=== PATIENT | male | born 1950 | race Caucasian/White ===

== ENCOUNTER → 2018-06-14 13:10 | Outpatient (CLI) | payer MEDICARE, SELFPAY ==
[2018-06-18 16:30] LABS: Fecal Immunochemical Test DETECTED (NOT DETECTED)
== END ==
PROVIDERS: PCP Family Medicine; Visit Provider Family Medicine
DX: Z12.11 Encounter for screening for malignant neoplasm of colon (principal)
CPT/HCPCS: 82274

== ENCOUNTER → 2018-06-26 07:03 | Outpatient (CLI) | payer OTHER, SELFPAY ==
[2018-06-26 09:14] LABS: Add Manual Diff / Slide Review NO; Basophils Absolute Auto 100 /uL (0-100); Eosinophils Absolute Auto 200 /uL (0-450); Eosinophils Percent Auto 3.6 % (2-4); Hematocrit 39.2 % (41-53); Hemoglobin 13.5 g/dL (13.5-17.5); Lymphocytes Absolute Auto 1100 /uL (1100-4500); Lymphocytes Percent Auto 17.3 % (25-40); Mean Corpuscular HGB Conc 34.4 % (30-36); Mean Corpuscular Hemoglobin 32.3 PG (26-34); Mean Corpuscular Volume 93.8 fL (80-100); Monocytes Absolute Auto 500 /uL (0-900); Monocytes Percent Auto 7.5 % (3-14); Neutrophils Absolute Auto 4300 /uL (1500-7000); Neutrophils Percent Auto 70.6 % (50-75); Platelet Count 201 X10^3/uL (150-400); Red Blood Cell Count 4.18 X10^6/uL (4.5-5.9); Red Cell Distribution Width 13.1 % (11.6-14.8); White Blood Cell Count 6.1 X10^3/uL (4.5-11.0)
[2018-06-26 09:32] LABS: Hemoglobin A1C% w Est Avg Glu 6.4 % (4.0-6.0)
[2018-06-26 09:41] LABS: Alanine Aminotransferase 30 IU/L (21-72); Albumin 4.5 g/dL (3.5-5.0); Albumin Globulin Ratio 1.3 (1.0-2.8); Alkaline Phosphatase 58 U/L (38-126); Aspartate Aminotransferase 27 IU/L (17-59); BUN Creatinine Ratio 28.2 (6-22); Bilirubin Total 0.9 mg/dL (0.2-1.3); Blood Urea Nitrogen 31 mg/dL (9-20); Calcium 9.3 mg/dL (8.4-10.2); Carbon Dioxide 28 mmol/L (22-32); Chloride 97 mmol/L (98-107); Cholesterol 196 mg/dL (140-199); Estimated Glomerular Filt Rate > 60.0 mL/min (>60); Globulin 3.4 g/dL (1.7-4.1); Glucose 159 mg/dL (80-110); HDL Cholesterol 49 mg/dL (40-60); HEMOLYSIS < 15 (0-50); LDL Cholesterol Calculated 91 mg/dL (<100); Sodium 138 mmol/L (137-145); Total Protein 7.9 g/dL (6.3-8.2); Triglycerides 278 mg/dL (35-150)
[2018-06-26 09:59] LABS: Prostate Specific Antigen Scrn 1.28 ng/mL (0.1-4.0)
[2018-06-26 10:05] LABS: Thyroid Stimulating Hormone 3.74 uIU/mL (0.47-4.68)
== END ==
PROVIDERS: PCP Family Medicine; Visit Provider Family Medicine
DX: E78.5 Hyperlipidemia, unspecified (principal); I10 Essential (primary) hypertension; I25.10 Atherosclerotic heart disease of native coronary artery without angina pectoris; I48.91 Unspecified atrial fibrillation; Z12.5 Encounter for screening for malignant neoplasm of prostate; Z13.0 Encounter for screening for diseases of the blood and blood-forming organs and certain disorders involving the immune mechanism; Z13.29 Encounter for screening for other suspected endocrine disorder; R73.09 Other abnormal glucose
CPT/HCPCS: 36415; 80053; 80061; 83036; 84443; 85025; G0103

== ENCOUNTER → 2018-06-27 07:28 | Outpatient (CLI) | payer OTHER, SELFPAY ==
[2018-06-27 10:09] LABS: Microalbumi Creatinin Ratio Ur 62.3 ug/mg CR (<30); Microalbumin Urine Random 4.8 mg/dL (0-1.6)
== END ==
PROVIDERS: PCP Family Medicine; Visit Provider Family Medicine
DX: I10 Essential (primary) hypertension (principal)
CPT/HCPCS: 82043; 82570

== ENCOUNTER → 2018-08-07 07:22 | Outpatient (CLI) | payer MEDICARE, SELFPAY ==
[2018-08-11 00:45] LABS: Alpha 1 Globulin 0.2 g/dL (0.2-0.3); Alpha 2 Globulin 0.7 g/dL (0.5-0.9); Beta 1 Globulin 0.4 g/dL (0.4-0.6); Gamma Globulin 0.9 g/dL (0.8-1.7); Protein, Total 6.7 g/dL (6.1-8.1)
== END ==
PROVIDERS: PCP Family Medicine; Visit Provider Family Medicine
DX: D47.2 Monoclonal gammopathy (principal)
CPT/HCPCS: 36415; 82784; 84155; 84165; 86334

== ENCOUNTER → 2019-01-17 07:05 | Outpatient (CLI) | payer OTHER, MEDICARE, SELFPAY ==
[2019-01-17 08:14] LABS: Add Manual Diff / Slide Review NO; Basophils Absolute Auto 100 /uL (0-100); Basophils Percent Auto 1.3 % (0-2); Eosinophils Absolute Auto 300 /uL (0-450); Eosinophils Percent Auto 4.6 % (2-4); Hematocrit 37.5 % (41-53); Hemoglobin 12.7 g/dL (13.5-17.5); Lymphocytes Absolute Auto 1000 /uL (1100-4500); Lymphocytes Percent Auto 16.4 % (25-40); Mean Corpuscular HGB Conc 33.9 % (30-36); Mean Corpuscular Hemoglobin 31.8 PG (26-34); Mean Corpuscular Volume 93.9 fL (80-100); Monocytes Absolute Auto 500 /uL (0-900); Monocytes Percent Auto 8.6 % (3-14); Neutrophils Absolute Auto 4300 /uL (1500-7000); Neutrophils Percent Auto 69.1 % (50-75); Platelet Count 235 X10^3/uL (150-400); Red Blood Cell Count 3.99 X10^6/uL (4.5-5.9); Red Cell Distribution Width 12.9 % (11.6-14.8); White Blood Cell Count 6.2 X10^3/uL (4.5-11.0)
[2019-01-17 08:20] LABS: Hemoglobin A1C% w Est Avg Glu 6.1 % (4.0-6.0)
[2019-01-17 08:29] LABS: Alanine Aminotransferase 22 IU/L (21-72); Albumin 4.2 g/dL (3.5-5.0); Albumin Globulin Ratio 1.4 (1.0-2.8); Alkaline Phosphatase 59 U/L (38-126); Aspartate Aminotransferase 26 IU/L (17-59); BUN Creatinine Ratio 20.9 (6-22); Bilirubin Total 0.8 mg/dL (0.2-1.3); Blood Urea Nitrogen 23 mg/dL (9-20); Calcium 9.5 mg/dL (8.4-10.2); Carbon Dioxide 28 mmol/L (22-32); Chloride 101 mmol/L (98-107); Estimated Glomerular Filt Rate > 60.0 mL/min (>60); Globulin 3.1 g/dL (1.7-4.1); Glucose 157 mg/dL (80-110); HEMOLYSIS < 15 (0-50); Potassium 4.5 mmol/L (3.4-5.1); Sodium 140 mmol/L (137-145); Total Protein 7.3 g/dL (6.3-8.2)
[2019-01-17 08:56] LABS: Creatinine Urine Random 98.3 mg/dL
[2019-01-17 09:01] LABS: Microalbumi Creatinin Ratio Ur 127.1 ug/mg CR (<30); Microalbumin Urine Random 12.5 mg/dL (0-1.6)
[2019-01-17 09:04] LABS: Thyroid Stimulating Hormone 2.39 uIU/mL (0.47-4.68)
== END ==
PROVIDERS: PCP Family Medicine; Visit Provider Family Medicine
DX: R41.3 Other amnesia (principal)
CPT/HCPCS: 36415; 80053; 82043; 82570; 83036; 84443; 85025

== ENCOUNTER → 2019-03-19 07:14 | Outpatient (CLI) | payer OTHER, MEDICARE, SELFPAY ==
[2019-03-19 07:59] LABS: Cholesterol 144 mg/dL (140-199); HDL Cholesterol 43 mg/dL (40-60); LDL Cholesterol Calculated 74 mg/dL (<100); Triglycerides 135 mg/dL (35-150)
== END ==
PROVIDERS: PCP Family Medicine; Visit Provider Family Medicine
DX: E78.5 Hyperlipidemia, unspecified (principal)
CPT/HCPCS: 36415; 80061

== ENCOUNTER → 2019-08-30 09:06 | Outpatient (CLI) | payer MEDICARE, SELFPAY ==
--- NOTE | 2019-08-30 | DI.MRI.S_ITS ---
PROCEDURE: MR HEAD/BRAIN WO CON INDICATIONS: Other amnesia TECHNIQUE: Non-contrast axial T1 spin echo, axial T2 fast spin echo, sagittal and axial FLAIR, coronal T2 fast spin echo, axial gradient echo, axial diffusion and ADC through the brain. COMPARISON: None. FINDINGS: Image quality: Diagnostic, with note made of motion artifact. CSF spaces: Ventricles appear symmetric in size and shape. Basal cisterns are patent. No extra-axial fluid collections. Brain: No intracranial bleeds or mass effects. There is cerebral volume loss for age. There are periventricular and deep white matter chronic small vessel ischemic changes. Brainstem appears normal. Diffusion-weighted images show no acute ischemic insults. No chronic ischemic insults. Normal intravascular flow voids are present. Skull and face: Calvarial bone marrow is normal in signal. Orbits are normal. Sinuses: Sinuses and mastoids are clear. There is moderate rightward nasal septal deviation incidentally noted. IMPRESSION: Unremarkable intracranial study for age, with note made of brain parenchymal volume loss and chronic small vessel ischemic change. No findings of acute or subacute infarction can be seen. Dictated by: Efrem Lizarraga M.D. on 08/30/2019 at 9:54 Approved by: Efrem Lizarraga M.D. on 08/30/2019 at 9:55
== END ==
PROVIDERS: PCP Family Medicine; Referring Provider Family Medicine; Visit Provider Family Medicine
DX: R41.3 Other amnesia (principal); J34.2 Deviated nasal septum
CPT/HCPCS: 70551

== ENCOUNTER → 2019-10-25 11:36 | Outpatient (CLI) | payer MEDICARE, SELFPAY ==
[2019-10-25 13:53] LABS: Hemoglobin A1C% w Est Avg Glu 6.1 % (4.0-6.0)
[2019-10-25 13:57] LABS: BUN Creatinine Ratio 22.2 (6-22); Blood Urea Nitrogen 26 mg/dL (9-20); Carbon Dioxide 26 mmol/L (22-32); Chloride 102 mmol/L (98-107); Estimated Glomerular Filt Rate > 60.0 mL/min (>60); Glucose 122 mg/dL (80-110); HEMOLYSIS < 15 (0-50); Potassium 4.5 mmol/L (3.4-5.1); Sodium 136 mmol/L (137-145)
== END ==
PROVIDERS: PCP Family Medicine; Referring Provider Family Medicine; Visit Provider Family Medicine
DX: E11.9 Type 2 diabetes mellitus without complications (principal)
CPT/HCPCS: 36415; 80048; 83036

== ENCOUNTER → 2021-02-10 09:31 | Outpatient (CLI) | payer OTHER, SELFPAY ==
[2021-02-10 12:14] LABS: Add Manual Diff / Slide Review NO; Basophils Absolute Auto 0 /uL (0-100); Basophils Percent Auto 0.7 % (0-2); Eosinophils Absolute Auto 200 /uL (0-450); Eosinophils Percent Auto 2.7 % (2-4); Hematocrit 37.1 % (41-53); Hemoglobin 12.5 g/dL (13.5-17.5); Lymphocytes Absolute Auto 900 /uL (1100-4500); Lymphocytes Percent Auto 15.7 % (25-40); Mean Corpuscular HGB Conc 33.8 % (30-36); Mean Corpuscular Volume 94.6 fL (80-100); Monocytes Absolute Auto 600 /uL (0-900); Monocytes Percent Auto 9.6 % (3-14); Neutrophils Absolute Auto 4200 /uL (1500-7000); Neutrophils Percent Auto 71.3 % (50-75); Platelet Count 202 X10^3/uL (150-400); Red Blood Cell Count 3.92 X10^6/uL (4.5-5.9); Red Cell Distribution Width 12.8 % (11.6-14.8)
[2021-02-10 13:04] LABS: BUN Creatinine Ratio 18.2 (6-22); Blood Urea Nitrogen 24 mg/dL (9-20); Calcium 9.8 mg/dL (8.4-10.2); Carbon Dioxide 30 mmol/L (22-32); Chloride 98 mmol/L (98-107); Cholesterol 155 mg/dL (140-199); Estimated Glomerular Filt Rate 53.3 mL/min (>60); Glucose 148 mg/dL (80-110); HDL Cholesterol 49 mg/dL (40-60); HEMOLYSIS < 15 (0-50); LDL Cholesterol Calculated 61 mg/dL (<100); Potassium 4.5 mmol/L (3.4-5.1); Sodium 138 mmol/L (137-145); Triglycerides 224 mg/dL (35-150)
== END ==
PROVIDERS: Referring Provider Internal Medicine Cardiovascular Disease; Visit Provider Internal Medicine Cardiovascular Disease
DX: E78.5 Hyperlipidemia, unspecified (principal); I25.10 Atherosclerotic heart disease of native coronary artery without angina pectoris
CPT/HCPCS: 36415; 80048; 80061; 85025

== ENCOUNTER → 2021-04-24 09:38 | Outpatient (CLI) | payer OTHER, SELFPAY ==
[2021-04-24 10:40] LABS: Add Manual Diff / Slide Review NO; Basophils Absolute Auto 100 /uL (0-100); Basophils Percent Auto 0.8 % (0-2); Eosinophils Absolute Auto 200 /uL (0-450); Eosinophils Percent Auto 2.2 % (2-4); Hematocrit 35.6 % (41-53); Lymphocytes Absolute Auto 1300 /uL (1100-4500); Lymphocytes Percent Auto 18.2 % (25-40); Mean Corpuscular HGB Conc 33.8 % (30-36); Mean Corpuscular Volume 94.5 fL (80-100); Monocytes Absolute Auto 500 /uL (0-900); Monocytes Percent Auto 7.6 % (3-14); Neutrophils Absolute Auto 5000 /uL (1500-7000); Neutrophils Percent Auto 71.2 % (50-75); Platelet Count 198 X10^3/uL (150-400); Red Blood Cell Count 3.77 X10^6/uL (4.5-5.9)
[2021-04-24 10:48] LABS: Hemoglobin A1C% w Est Avg Glu 6.5 % (4.0-6.0)
[2021-04-24 13:19] LABS: BUN Creatinine Ratio 20.2 (6-22); Blood Urea Nitrogen 26 mg/dL (9-20); Calcium 9.5 mg/dL (8.4-10.2); Carbon Dioxide 31 mmol/L (22-32); Chloride 102 mmol/L (98-107); Estimated Glomerular Filt Rate 54.7 mL/min (>60); Glucose 164 mg/dL (80-110); HEMOLYSIS < 15 (0-50); Potassium 4.9 mmol/L (3.4-5.1); Sodium 138 mmol/L (137-145)
[2021-04-24 15:34] LABS: Creatinine Urine Random 83.9 mg/dL
[2021-04-24 15:41] LABS: Microalbumi Creatinin Ratio Ur 182.3 ug/mg CR (<30); Microalbumin Urine Random 15.3 mg/dL (0-1.6)
[2021-04-24 15:54] LABS: Vitamin D 25 Hydroxy (D3) 56.9 ng/mL (30.0-100.0)
== END ==
PROVIDERS: PCP Student in an Organized Health Care Education/Training Program; Referring Provider Student in an Organized Health Care Education/Training Program; Visit Provider Student in an Organized Health Care Education/Training Program
DX: E11.9 Type 2 diabetes mellitus without complications (principal); E55.9 Vitamin D deficiency, unspecified; I10 Essential (primary) hypertension; D64.9 Anemia, unspecified
CPT/HCPCS: 36415; 80048; 82043; 82306; 82570; 83036; 85025

== ENCOUNTER → 2021-05-21 11:43 | Outpatient (CLI) | payer OTHER, SELFPAY ==
--- NOTE | 2021-05-21 11:45 | DI.US.S_ITS ---
PROCEDURE: US ABD AORTA ANEURYSM SCREEN INDICATIONS: AAA SCREEN TECHNIQUE: Real time scanning was performed of the aorta and iliac arteries, with image documentation. COMPARISON: None. FINDINGS: Aorta: Proximal aortic diameter measures 1.5 cm. Mid-aorta measures 1.5 cm. Distal aortic diameter is 1.3 cm. Iliac arteries: Right common iliac artery measures 1 cm. Left common iliac artery measures 1 cm. IMPRESSION: Negative for aneurysm. Dictated by: Efrem Lizarraga M.D. on 05/21/2021 at 13:17 Approved by: Efrem Lizarraga M.D. on 05/21/2021 at 13:18
== END ==
PROVIDERS: PCP Student in an Organized Health Care Education/Training Program; Referring Provider Student in an Organized Health Care Education/Training Program; Visit Provider Student in an Organized Health Care Education/Training Program
DX: Z13.6 Encounter for screening for cardiovascular disorders (principal); Z87.891 Personal history of nicotine dependence
CPT/HCPCS: 76706

== ENCOUNTER 2021-07-29 11:15 | Outpatient (RCR) | payer OTHER, SELFPAY ==
--- NOTE | 2021-07-15 11:52 | PT.OIE ---
Current Diagnoses Other specific arthropathies, not elsewhere classified, right shoulder (07/15/21) Pain in right shoulder (07/15/21) Stiffness of right shoulder, not elsewhere classified (07/15/21) Unspecified rotator cuff tear or rupture of right shoulder, not specified as traumatic (07/15/21) Past Medical History (Last Updated 04/24/21 @ 18:54 by Fredy Mejia MD) Atrial fibrillation (~2009) Atrial flutter (~07/06/11) Colonic polyp Coronary artery disease (~07/06/11) Diverticulosis of colon (~11/24/11) Dyspnea on exertion History of heart bypass surgery (~1999) Hypertension (~2011) Memory impairment Psoriasis Past Surgical History (Last Reviewed 08/07/18 @ 15:59 by Alejandro Baptiste MD) Anesthesia History of heart bypass surgery (~1999) Surgical procedure planned (~2016) Visit Care Team Role Provider Type Fredy Mejia MD Attending Provider Physician Family Provider Primary Care Provider Referring Provider Specialty: Internal Medicine Address: [address] [place] [address], [address], [facility] Email: [email or web address] Physical Therapy Initial Evaluation PT-OP-A Visit Information Start: 07/15/21 11:26 Freq: Status: Active Protocol: Document 07/15/21 10:30 DCW (Rec: 07/15/21 11:42 DCW [id number]) Out-Patient Physical Therapy Visit Information Visit Information Visit Type Initial Evaluation Visit Start Time 10:30 Visit Stop Time 11:15 Total Visit Minutes 45 Visit Number 1 Number of SERVICE DISMANTLER Visits 0 Evaluation Information Evaluation Date 07/15/21 PT-OP-B Current Condition Start: 07/15/21 11:26 Freq: Status: Active Protocol: Document 07/15/21 10:30 DCW (Rec: 07/15/21 11:42 DCW [id number]) Current Condition History of Current Condition Onset Date 5 month history Current Complaints Right shoulder pain and decreased mobility History of Current Condition Pt is a 70 year old male presenting with a five month history or shoulder pain and decreased ROM. Pt notes there was no initial injury, he just suddenly was limited with stiffness and pain during overhead activities. Pt notes he has been able to switch some of his activities to his left hand, which helps him perform his ADLs, but working on his car or trying to lift his right arm overhead is very difficult. Notes there is a deep ache in his right arm, fairly constant, affects his sleep, now unable to sleep on his right side without pain, which is his usual sleeping position. Pt reports symptoms have not really changed since they began, no better or worse than February. PT-OP-C Subjective Start: 07/15/21 11:26 Freq: Status: Active Protocol: Document 07/15/21 10:30 DCW (Rec: 07/15/21 11:42 DCW [id number]) OP-PT Subjective Patient Comments Patient Comments It has that deep kind of ache , like someone slugged me in the shoulder. Patient Reported Progress Same Patient Questionnaires Quick Dash- Upper Extremity Quick Dash UE Score 22.73% Quick Dash UE Impairment 20 to 39% Impaired (Score 20- 39) OP-PT Pain Assessment Pain Assessment Grid Paper Pain Assessment Grid Completed Yes Location Right Shoulder Intensity 3 Scale Used Numeric (0 - 10) Description Aching,Dull PT-OP-E Functional Tests Start: 07/15/21 11:26 Freq: Status: Active Protocol: Document 07/15/21 10:30 DCW (Rec: 07/15/21 11:42 DCW [id number]) Functional Tests Apley's Scratch Test Action 2- Left T1 Action 2- Right R Suboccipitals Action 3- Left T12 Action 3- Right R PSIS PT-OP-F Manual Assessment Start: 07/15/21 11:26 Freq: Status: Active Protocol: Document 07/15/21 10:30 DCW (Rec: 07/15/21 11:42 DCW [id number]) Manual Assessments Soft Tissue Assessment Soft Tissue Mobility Assessment Moderate-severe tone R pec, R infraspinatus, R supraspinatus , R subscap, R levator Joint Mobility Assessment Joint Mobility Assessment Poor R scapulothoracic rhythm, minimal scapular movement with UE ROM, muscle tightness limiting scapular mobility PT-OP-K Range of Motion Start: 07/15/21 11:26 Freq: Status: Active Protocol: Document 07/15/21 10:30 DCW (Rec: 07/15/21 11:42 DCW [id number]) Shoulder Goniometric Range of Motion Shoulder Left Active Flexion 140 Abduction 140 External Rotation at 0 degrees Abduction 60 Internal Rotation Behind Back (text) T12 Right Active Shoulder ROM WFL No Testing Position Sitting Flexion 82 Abduction 70 External Rotation at 0 degrees Abduction 28 Internal Rotation Behind Back (text) R PSIS PT-OP-L Special Tests Start: 07/15/21 11:26 Freq: Status: Active Protocol: Document 07/15/21 10:30 DCW (Rec: 07/15/21 11:42 DCW [id number]) Special Tests Shoulder Special Tests Passive ER Rotator Cuff Test Results Positive R Lift-Off Rotator Cuff Test Results Unable to get to position Tate Tano Impingement Test Results Positive R Empty Can Test Results Positive R Belly Press Test Results Positive R AC Joint Compression Test Results Positive R PT-OP-M Strength Start: 07/15/21 11:26 Freq: Status: Active Protocol: Document 07/15/21 10:30 DCW (Rec: 07/15/21 11:42 DCW [id number]) Shoulder Strength Shoulder Manual Muscle Testing Right Flexion 3- Fair- Abduction (C5) 3- Fair- External Rotation 3- Fair- Internal Rotation 3 Fair PT-OP-Q Treatments Start: 07/15/21 11:26 Freq: Status: Active Protocol: Document 07/15/21 10:30 DCW (Rec: 07/15/21 11:42 DCW [id number]) Therapeutic Exercises Sitting Exercises 1 Sitting Exercise Name Rows Side bilateral Resistance Lv 2 Equipment Used T-band Standing Exercises 1 Standing Exercise Name Corner pec stretch Side bilateral PT-OP-T Assessment and Plan Start: 07/15/21 11:26 Freq: Status: Active Protocol: Document 07/15/21 10:30 DCW (Rec: 07/15/21 11:52 DCW [id number]) Physical Therapy Assessment Rehab Potential Rehabilitation Potential Good Evaluation Complexity Number of Personal Factors/Comorbidities 0 Number of Body Systems Impaired 1-2 Clinical Presentation at Evaluation Stable Impairments Impairments Activity Tolerance,Functional Activities,Functional Mobility ,Pain,ROM,Soft Tissue Mobility ,Strength,Tone Goals Three Impairment Pt reports interuppted sleep due to right shoulder pain Long-Term Goal (LTG) Pt to demonstrate ability to sleep on right side without waking due to pain 80% of the time for one week. LTG Duration 09/14/21 Two Impairment Pt unable to perform overhead activities with right arm Hotel Assistant General Manager Goal (LTG) Pt to improve right shoulder flexion and abduction to 120? to improve ability to reach overhead when working on his car. LTG Duration 09/14/21 One Impairment Pt does not have an appropriate home exercise program Short Term Goal (STG) Pt to be independent and compliant with an appropriate HEP STG Duration 08/15/21 Assessment Summary Assessment Pt presents with signs and symptoms consistent with referring diagnosis of non-traumatic R rotator cuff injury. Difficult to formally DDx due to all performed special tests being positive due to pt's general pain and discomfort with most motions, however with his subjective reports and overhead struggles , most likely cause in right supraspinatus impingement. Pt shows forward shift in right humerus secondary to severe pec tone, as well as poor scapular mobility. Pt should benefit from skilled therapy focusing on improving shoulder girdle strength, decreasing tone, joint mobilizations, STM , and improving scapulothoracic rhythm. Expect pt to progress well with this treatment plan, however may need to plan for advanced imaging in the future if no progress in made. Physical Therapy Plan Frequency and Duration Frequency of Treatment 2x/Week Duration of Treatment Two months Plan of Care Start Date 07/15/21 Plan of Care End Date 09/14/21 Therapeutic Interventions Therapeutic Interventions Home Exercise Program,Joint Mobilizations,Manual Therapy, Patient/Caregiver Education, Self-Care/Home Management,Soft Tissue Mobilization,Taping, Therapeutic Activities, Therapeutic Exercises Modalities Cold Pack/Ice Massage,Electric Stimulation,Hot Packs, Ultrasound Next Visit Focus/Plan Next Note Type Treatment Note Next Visit Plan STM, stretching, shoulder strengthening, joint mobs
--- NOTE | 2021-07-15 11:53 | PT.OPPOC ---
Physical, Occupational & Speech Therapy At [facility] Current Diagnoses Other specific arthropathies, not elsewhere classified, right shoulder (07/15/21) Pain in right shoulder (07/15/21) Stiffness of right shoulder, not elsewhere classified (07/15/21) Unspecified rotator cuff tear or rupture of right shoulder, not specified as traumatic (07/15/21) Visit Care Team Role Provider Type Fredy Mejia MD Attending Provider Physician Family Provider Primary Care Provider Referring Provider Specialty: Internal Medicine Address: [address] [place] [address], [address], [address] Email: [email or web address] Plan Of Care PT-OP-T Assessment and Plan Start: 07/15/21 11:26 Freq: Status: Active Protocol: Document 07/15/21 10:30 DCW (Rec: 07/15/21 11:52 DCW [id number]) Physical Therapy Assessment Rehab Potential Rehabilitation Potential Good Evaluation Complexity Number of Personal Factors/Comorbidities 0 Number of Body Systems Impaired 1-2 Clinical Presentation at Evaluation Stable Impairments Impairments Activity Tolerance,Functional Activities,Functional Mobility ,Pain,ROM,Soft Tissue Mobility ,Strength,Tone Goals Three Impairment Pt reports interrupted sleep due to right shoulder pain Group Home Goal (LTG) Pt to demonstrate ability to sleep on right side without waking due to pain 80% of the time for one week. LTG Duration 09/14/21 Two Impairment Pt unable to perform overhead activities with right arm Group Home Goal (LTG) Pt to improve right shoulder flexion and abduction to 120? to improve ability to reach overhead when working on his car. LTG Duration 09/14/21 One Impairment Pt does not have an appropriate home exercise program Short Term Goal (STG) Pt to be independent and compliant with an appropriate HEP STG Duration 08/15/21 Assessment Summary Assessment Pt presents with signs and symptoms consistent with referring diagnosis of non- traumatic R rotator cuff injury. Difficult to formally DDx due to all performed special tests being positive due to pt's general pain and discomfort with most motions, however with his subjective reports and overhead struggles , most likely cause in right supraspinatus impingement. Pt shows forward shift in right humerus secondary to severe pec tone, as well as poor scapular mobility. Pt should benefit from skilled therapy focusing on improving shoulder girdle strength, decreasing tone, joint mobilizations, STM , and improving scapulothoracic rhythm. Expect pt to progress well with this treatment plan, however may need to plan for advanced imaging in the future if no progress in made. Physical Therapy Plan Frequency and Duration Frequency of Treatment 2x/Week Duration of Treatment Two months Plan of Care Start Date 07/15/21 Plan of Care End Date 09/14/21 Therapeutic Interventions Therapeutic Interventions Home Exercise Program,Joint Mobilizations,Manual Therapy, Patient/Caregiver Education, Self-Care/Home Management,Soft Tissue Mobilization,Taping, Therapeutic Activities, Therapeutic Exercises Modalities Cold Pack/Ice Massage,Electric Stimulation,Hot Packs, Ultrasound Next Visit Focus/Plan Next Note Type Treatment Note Next Visit Plan STM, stretching, shoulder strengthening, joint mobs Plan of Care Dates Plan of Care Start Date 07/15/21 Plan of Care End Date 09/14/21 Electronically Signed by: Josef Dejesus, PT 07/15/21 3318 Please Sign and Return: I have reviewed this Plan of Care and certify that the skilled therapy services above are required to meet the patient?s needs. Physician Signature Date Printed Name and Credentials Clinical Instructor Signature Printed Name and Credentials
--- NOTE | 2021-07-22 12:00 | PT.OTN ---
Current Diagnoses Other specific arthropathies, not elsewhere classified, right shoulder (07/22/21) Pain in right shoulder (07/22/21) Stiffness of right shoulder, not elsewhere classified (07/22/21) Unspecified rotator cuff tear or rupture of right shoulder, not specified as traumatic (07/22/21) Physical Therapy Treatment Note PT-OP-A Visit Information Start: 07/15/21 11:26 Freq: Status: Active Protocol: Document 07/22/21 11:15 DCW (Rec: 07/22/21 12:00 DCW [id number]) Out-Patient Physical Therapy Visit Information Visit Information Visit Type Treatment Note Visit Start Time 11:15 Visit Stop Time 12:00 Total Visit Minutes 45 Visit Number 2 Number of SPRAY DRIER Visits 0 Evaluation Information Evaluation Date 07/15/21 PT-OP-B Current Condition Start: 07/15/21 11:26 Freq: Status: Active Protocol: Document 07/15/21 10:30 DCW (Rec: 07/15/21 11:42 DCW [id number]) Current Condition History of Current Condition Onset Date 5 month history Current Complaints Right shoulder pain and decreased mobility History of Current Condition Pt is a 70 year old male presenting with a five month history or shoulder pain and decreased ROM. Pt notes there was no initial injury, he just suddenly was limited with stiffness and pain during overhead activities. Pt notes he has been able to switch some of his activities to his left hand, which helps him perform his ADLs, but working on his car or trying to lift his right arm overhead is very difficult. Notes there is a deep ache in his right arm, fairly constant, affects his sleep, now unable to sleep on his right side without pain, which is his usual sleeping position. Pt reports symptoms have not really changed since they began, no better or worse than February. PT-OP-C Subjective Start: 07/15/21 11:26 Freq: Status: Active Protocol: Document 07/22/21 11:15 DCW (Rec: 07/22/21 12:00 DCW [id number]) OP-PT Subjective Patient Comments Patient Comments I can actually do stuff with this arm now. I'm shocked it has made this much of a difference already. I was able to reach up and touch the back of my head, which I haven 't been able to do for months. PT-OP-E Functional Tests Start: 07/15/21 11:26 Freq: Status: Active Protocol: Document 07/15/21 10:30 DCW (Rec: 07/15/21 11:42 DCW [id number]) Functional Tests Apley's Scratch Test Action 2- Left T1 Action 2- Right R Suboccipitals Action 3- Left T12 Action 3- Right R PSIS PT-OP-F Manual Assessment Start: 07/15/21 11:26 Freq: Status: Active Protocol: Document 07/15/21 10:30 DCW (Rec: 07/15/21 11:42 DCW [id number]) Manual Assessments Soft Tissue Assessment Soft Tissue Mobility Assessment Moderate-severe tone R pec, R infraspinatus, R supraspinatus , R subscap, R levator Joint Mobility Assessment Joint Mobility Assessment Poor R scapulothoracic rhythm, minimal scapular movement with UE ROM, muscle tightness limiting scapular mobility PT-OP-K Range of Motion Start: 07/15/21 11:26 Freq: Status: Active Protocol: Document 07/15/21 10:30 DCW (Rec: 07/15/21 11:42 DCW [id number]) Shoulder Goniometric Range of Motion Shoulder Left Active Flexion 140 Abduction 140 External Rotation at 0 degrees Abduction 60 Internal Rotation Behind Back (text) T12 Right Active Shoulder ROM WFL No Testing Position Sitting Flexion 82 Abduction 70 External Rotation at 0 degrees Abduction 28 Internal Rotation Behind Back (text) R PSIS PT-OP-L Special Tests Start: 07/15/21 11:26 Freq: Status: Active Protocol: Document 07/15/21 10:30 DCW (Rec: 07/15/21 11:42 DCW [id number]) Special Tests Shoulder Special Tests Passive ER Rotator Cuff Test Results Positive R Lift-Off Rotator Cuff Test Results Unable to get to position Tate [place]ano Impingement Test Results Positive R Empty Can Test Results Positive R Belly Press Test Results Positive R AC Joint Compression Test Results Positive R PT-OP-M Strength Start: 07/15/21 11:26 Freq: Status: Active Protocol: Document 07/15/21 10:30 DCW (Rec: 07/15/21 11:42 DCW [id number]) Shoulder Strength Shoulder Manual Muscle Testing Right Flexion 3- Fair- Abduction (C5) 3- Fair- External Rotation 3- Fair- Internal Rotation 3 Fair PT-OP-Q Treatments Start: 07/15/21 11:26 Freq: Status: Active Protocol: Document 07/22/21 11:15 DCW (Rec: 07/22/21 12:00 DCW [id number]) Cardio Equipment Upper Body Ergometer (UBE) Duration (Minutes) 5 Seat Position 12 Height 3.5 Therapeutic Exercises Supine Exercises 2 Supine Exercise Name Horizontal Adduction Side bilateral Resistance 3# 1 Supine Exercise Name Serratus punch Side bilateral Resistance 3# Standing Exercises 3 Standing Exercise Name Shoulder Adduction Side bilateral Resistance Lv 2 2 Standing Exercise Name Shoulder Extension Side bilateral Resistance Lv 2 Manual Therapy Treatment Soft Tissue Mobilization 2 Body Location R Pec Mobilization Type Sustained Pressure,Trigger Point Release 1 Body Location R Parascapular Mobilization Type Sustained Pressure,Trigger Point Release Joint Mobilizations 1 Joint R Scapulothoracic Direction Lateral Grade III Body Position Hooklying PT-OP-T Assessment and Plan Start: 07/15/21 11:26 Freq: Status: Active Protocol: Document 07/22/21 11:15 DCW (Rec: 07/22/21 12:00 DCW [id number]) Physical Therapy Assessment Impairments Impairments Activity Tolerance,Functional Activities,Functional Mobility ,Pain,ROM,Soft Tissue Mobility ,Strength,Tone Goals Three Impairment Pt reports interuppted sleep due to right shoulder pain Mold Capper Goal (LTG) Pt to demonstrate ability to sleep on right side without waking due to pain 80% of the time for one week. LTG Duration 09/14/21 Two Impairment Pt unable to perform overhead activities with right arm Usp Goal (LTG) Pt to improve right shoulder flexion and abduction to 120? to improve ability to reach overhead when working on his car. LTG Duration 09/14/21 One Impairment Pt does not have an appropriate home exercise program Short Term Goal (STG) Pt to be independent and compliant with an appropriate HEP STG Duration 08/15/21 Assessment Summary Assessment Pt responding very well already to therapy, improving pain levels and mobility. Pt noting improved sleeping, increased ROM, and just minimal pain in general. Physical Therapy Plan Frequency and Duration Frequency of Treatment 2x/Week Duration of Treatment Two months Plan of Care Start Date 07/15/21 Plan of Care End Date 09/14/21 Therapeutic Interventions Therapeutic Interventions Home Exercise Program,Joint Mobilizations,Manual Therapy, Patient/Caregiver Education, Self-Care/Home Management,Soft Tissue Mobilization,Taping, Therapeutic Activities, Therapeutic Exercises Modalities Cold Pack/Ice Massage,Electric Stimulation,Hot Packs, Ultrasound Next Visit Focus/Plan Next Note Type Treatment Note Next Visit Plan STM, stretching, shoulder strengthening, joint mobs
--- NOTE | 2021-07-27 11:20 | PT.OTN ---
Current Diagnoses Other specific arthropathies, not elsewhere classified, right shoulder (07/27/21) Pain in right shoulder (07/27/21) Stiffness of right shoulder, not elsewhere classified (07/27/21) Unspecified rotator cuff tear or rupture of right shoulder, not specified as traumatic (07/27/21) Physical Therapy Treatment Note PT-OP-A Visit Information Start: 07/15/21 11:26 Freq: Status: Active Protocol: Document 07/27/21 10:33 SP (Rec: 07/27/21 11:39 SP [id number]) Out-Patient Physical Therapy Visit Information Visit Information Visit Type Treatment Note Visit Start Time 10:33 Visit Stop Time 11:20 Total Visit Minutes 47 Visit Number 3 Number of RN CRITICAL CARE Visits 1 Evaluation Information Evaluation Date 07/15/21 PT-OP-B Current Condition Start: 07/15/21 11:26 Freq: Status: Active Protocol: Document 07/15/21 10:30 DCW (Rec: 07/15/21 11:42 DCW [id number]) Current Condition History of Current Condition Onset Date 5 month history Current Complaints Right shoulder pain and decreased mobility History of Current Condition Pt is a 70 year old male presenting with a five month history or shoulder pain and decreased ROM. Pt notes there was no initial injury, he just suddenly was limited with stiffness and pain during overhead activities. Pt notes he has been able to switch some of his activities to his left hand, which helps him perform his ADLs, but working on his car or trying to lift his right arm overhead is very difficult. Notes there is a deep ache in his right arm, fairly constant, affects his sleep, now unable to sleep on his right side without pain, which is his usual sleeping position. Pt reports symptoms have not really changed since they began, no better or worse than February. PT-OP-C Subjective Start: 07/15/21 11:26 Freq: Status: Active Protocol: Document 07/27/21 10:33 SP (Rec: 07/27/21 11:39 SP [id number]) OP-PT Subjective Patient Comments Patient Comments Pt stated can reach back of his head which couldn't do a week ago. Very compliant with HEP. PT-OP-E Functional Tests Start: 07/15/21 11:26 Freq: Status: Active Protocol: Document 07/15/21 10:30 DCW (Rec: 07/15/21 11:42 DCW [id number]) Functional Tests Apley's Scratch Test Action 2- Left T1 Action 2- Right R Suboccipitals Action 3- Left T12 Action 3- Right R PSIS PT-OP-F Manual Assessment Start: 07/15/21 11:26 Freq: Status: Active Protocol: Document 07/15/21 10:30 DCW (Rec: 07/15/21 11:42 DCW [id number]) Manual Assessments Soft Tissue Assessment Soft Tissue Mobility Assessment Moderate-severe tone R pec, R infraspinatus, R supraspinatus , R subscap, R levator Joint Mobility Assessment Joint Mobility Assessment Poor R scapulothoracic rhythm, minimal scapular movement with UE ROM, muscle tightness limiting scapular mobility PT-OP-K Range of Motion Start: 07/15/21 11:26 Freq: Status: Active Protocol: Document 07/15/21 10:30 DCW (Rec: 07/15/21 11:42 DCW [id number]) Shoulder Goniometric Range of Motion Shoulder Left Active Flexion 140 Abduction 140 External Rotation at 0 degrees Abduction 60 Internal Rotation Behind Back (text) T12 Right Active Shoulder ROM WFL No Testing Position Sitting Flexion 82 Abduction 70 External Rotation at 0 degrees Abduction 28 Internal Rotation Behind Back (text) R PSIS PT-OP-L Special Tests Start: 07/15/21 11:26 Freq: Status: Active Protocol: Document 07/15/21 10:30 DCW (Rec: 07/15/21 11:42 DCW [id number]) Special Tests Shoulder Special Tests Passive ER Rotator Cuff Test Results Positive R Lift-Off Rotator Cuff Test Results Unable to get to position [place] Impingement Test Results Positive R Empty Can Test Results Positive R Belly Press Test Results Positive R AC Joint Compression Test Results Positive R PT-OP-M Strength Start: 07/15/21 11:26 Freq: Status: Active Protocol: Document 07/15/21 10:30 DCW (Rec: 07/15/21 11:42 DCW [id number]) Shoulder Strength Shoulder Manual Muscle Testing Right Flexion 3- Fair- Abduction (C5) 3- Fair- External Rotation 3- Fair- Internal Rotation 3 Fair PT-OP-Q Treatments Start: 07/15/21 11:26 Freq: Status: Active Protocol: Document 07/27/21 10:33 SP (Rec: 07/27/21 11:39 SP [id number]) Cardio Equipment Upper Body Ergometer (UBE) Duration (Minutes) 6 RPM 50 Seat Position 10 Height 3.5 Other f/b alternating 1min each Therapeutic Exercises Sitting Exercises pulleys Sitting Exercise Name added to HEP: FF and scaption Side right Equipment Used mirror for self feedback no UT Reps/Minutes x10 Comments cued no UT recruitment. Standing Exercises resisted rows Standing Exercise Name HEP reviewed- stated doing at home Side bilateral Resistance TB #3 Reps/Minutes x15 Comments cued shld retract/ depressed eccentric control, head/ CS neutral shoulder ER Standing Exercise Name added to HEP Side right Resistance AAROM Equipment Used dowel- front mirror for posture Reps/Minutes 5 sec hold x5 Comments cued elbow tucked at side, gentle AAROM low to no pain- good feedback resp. shoulder IR Standing Exercise Name added to HEP Side right Resistance AAROM Equipment Used dowel behind back across pelvis 1st Reps/Minutes 5 sec hold x5 Comments cued tall posture, head up neutral CS, gentle AAROM- good resp. 3 Standing Exercise Name Shoulder Adduction- HEP reviewed Side right Resistance Lv 2 Reps/Minutes x20 Comments good form 2 Standing Exercise Name Shoulder Extension- HEP reviewed Side right Resistance Lv 2>#3 Reps/Minutes 2x10 Comments cued shld retract/ depressed eccentric control 1 Standing Exercise Name Corner pec stretch Side bilateral Reps/Minutes review next tx Comments discussed but didn't have time for 07/27/21 PT-OP-T Assessment and Plan Start: 07/15/21 11:26 Freq: Status: Active Protocol: Document 07/27/21 10:33 SP (Rec: 07/27/21 11:39 SP [id number]) Physical Therapy Assessment Goals Three Impairment Pt reports interuppted sleep due to right shoulder pain Fdc Goal (LTG) Pt to demonstrate ability to sleep on right side without waking due to pain 80% of the time for one week. 07/27/21: Pt stated can sleep most of the night on R before has to roll over on other side L. LTG Duration 09/14/21 progressing Two Impairment Pt unable to perform overhead activities with right arm Fdc Goal (LTG) Pt to improve right shoulder flexion and abduction to 120? to improve ability to reach overhead when working on his car. 07/27/21: prgrogressing: standing R shld AROM: FF 100 deg, ABD 82 deg, ER 33deg, IR behind R buttocks. LTG Duration 09/14/21 progressing One Impairment Pt does not have an appropriate home exercise program Short Term Goal (STG) Pt to be independent and compliant with an appropriate HEP 07/27/21: resisted rows, shld ext, adduction, wand IR/ ER, pulleys FF/Scaption STG Duration 08/15/21 progressing Assessment Summary Assessment Pt responded well to added shld IR/ ER wand and pulleys today with Min cues for trunk / head/ shld alignment, also cues for no UT recruitment throughout ther ex. Pt stated little discomfort -07/26 but feels like getting better and able to reach behind head but doesn't understand how limited ROM happened. Pt stated will get materials self at [employer] for self home pulleys. Physical Therapy Plan Frequency and Duration Frequency of Treatment 2x/Week Duration of Treatment Two months Plan of Care Start Date 07/15/21 Plan of Care End Date 09/14/21 Therapeutic Interventions Therapeutic Interventions Home Exercise Program,Joint Mobilizations,Manual Therapy, Patient/Caregiver Education, Self-Care/Home Management,Soft Tissue Mobilization,Taping, Therapeutic Activities, Therapeutic Exercises Modalities Cold Pack/Ice Massage,Electric Stimulation,Hot Packs, Ultrasound Next Visit Focus/Plan Next Note Type Treatment Note Next Visit Plan HEP review: pulleys, wand, standing resisted HEP. POC: STM, stretching, shoulder strengthening, joint mobs
--- NOTE | 2021-07-29 12:00 | PT.OTN ---
Current Diagnoses Other specific arthropathies, not elsewhere classified, right shoulder (07/29/21) Pain in right shoulder (07/29/21) Stiffness of right shoulder, not elsewhere classified (07/29/21) Unspecified rotator cuff tear or rupture of right shoulder, not specified as traumatic (07/29/21) Physical Therapy Treatment Note PT-OP-A Visit Information Start: 07/15/21 11:26 Freq: Status: Active Protocol: Document 07/29/21 11:15 DCW (Rec: 07/29/21 11:59 DCW [id number]) Out-Patient Physical Therapy Visit Information Visit Information Visit Type Treatment Note Visit Start Time 11:15 Visit Stop Time 12:00 Total Visit Minutes 45 Visit Number 4 Number of CHANGE MANAGEMENT ANALYST Visits 0 Evaluation Information Evaluation Date 07/15/21 PT-OP-B Current Condition Start: 07/15/21 11:26 Freq: Status: Active Protocol: Document 07/15/21 10:30 DCW (Rec: 07/15/21 11:42 DCW [id number]) Current Condition History of Current Condition Onset Date 5 month history Current Complaints Right shoulder pain and decreased mobility History of Current Condition Pt is a 70 year old male presenting with a five month history or shoulder pain and decreased ROM. Pt notes there was no initial injury, he just suddenly was limited with stiffness and pain during overhead activities. Pt notes he has been able to switch some of his activities to his left hand, which helps him perform his ADLs, but working on his car or trying to lift his right arm overhead is very difficult. Notes there is a deep ache in his right arm, fairly constant, affects his sleep, now unable to sleep on his right side without pain, which is his usual sleeping position. Pt reports symptoms have not really changed since they began, no better or worse than February. PT-OP-C Subjective Start: 07/15/21 11:26 Freq: Status: Active Protocol: Document 07/29/21 11:15 DCW (Rec: 07/29/21 11:59 DCW [id number]) OP-PT Subjective Patient Comments Patient Comments I feel like I've got 80% of my arm back. I still have some limitations, but nothing I'm worried about. PT-OP-E Functional Tests Start: 07/15/21 11:26 Freq: Status: Active Protocol: Document 07/15/21 10:30 DCW (Rec: 07/15/21 11:42 DCW [id number]) Functional Tests Apley's Scratch Test Action 2- Left T1 Action 2- Right R Suboccipitals Action 3- Left T12 Action 3- Right R PSIS PT-OP-F Manual Assessment Start: 07/15/21 11:26 Freq: Status: Active Protocol: Document 07/15/21 10:30 DCW (Rec: 07/15/21 11:42 DCW [id number]) Manual Assessments Soft Tissue Assessment Soft Tissue Mobility Assessment Moderate-severe tone R pec, R infraspinatus, R supraspinatus , R subscap, R levator Joint Mobility Assessment Joint Mobility Assessment Poor R scapulothoracic rhythm, minimal scapular movement with UE ROM, muscle tightness limiting scapular mobility PT-OP-K Range of Motion Start: 07/15/21 11:26 Freq: Status: Active Protocol: Document 07/15/21 10:30 DCW (Rec: 07/15/21 11:42 DCW [id number]) Shoulder Goniometric Range of Motion Shoulder Left Active Flexion 140 Abduction 140 External Rotation at 0 degrees Abduction 60 Internal Rotation Behind Back (text) T12 Right Active Shoulder ROM WFL No Testing Position Sitting Flexion 82 Abduction 70 External Rotation at 0 degrees Abduction 28 Internal Rotation Behind Back (text) R PSIS PT-OP-L Special Tests Start: 07/15/21 11:26 Freq: Status: Active Protocol: Document 07/15/21 10:30 DCW (Rec: 07/15/21 11:42 DCW [id number]) Special Tests Shoulder Special Tests Passive ER Rotator Cuff Test Results Positive R Lift-Off Rotator Cuff Test Results Unable to get to position [place] Impingement Test Results Positive R Empty Can Test Results Positive R Belly Press Test Results Positive R AC Joint Compression Test Results Positive R PT-OP-M Strength Start: 07/15/21 11:26 Freq: Status: Active Protocol: Document 07/15/21 10:30 DCW (Rec: 07/15/21 11:42 DCW [id number]) Shoulder Strength Shoulder Manual Muscle Testing Right Flexion 3- Fair- Abduction (C5) 3- Fair- External Rotation 3- Fair- Internal Rotation 3 Fair PT-OP-Q Treatments Start: 07/15/21 11:26 Freq: Status: Active Protocol: Document 07/29/21 11:15 DCW (Rec: 07/29/21 11:59 DCW [id number]) Cardio Equipment Upper Body Ergometer (UBE) Duration (Minutes) 5 Seat Position 12 Height 3.5 Therapeutic Exercises Standing Exercises 5 Standing Exercise Name Sh Abd Side bilateral Resistance Lv 2 4 Standing Exercise Name Sh Flexion Side bilateral Resistance Lv 2 shoulder ER Standing Exercise Name Shoulder ER Side bilateral Resistance Lv 2 Equipment Used T-band Manual Therapy Treatment Soft Tissue Mobilization 2 Body Location R Pec Mobilization Type Sustained Pressure,Trigger Point Release 1 Body Location R Parascapular Mobilization Type Sustained Pressure,Trigger Point Release Joint Mobilizations 1 Joint R Scapulothoracic Direction Lateral Grade III Body Position Hooklying PT-OP-T Assessment and Plan Start: 07/15/21 11:26 Freq: Status: Active Protocol: Document 07/29/21 11:15 DCW (Rec: 07/29/21 11:59 DCW [id number]) Physical Therapy Assessment Impairments Impairments Activity Tolerance,Functional Activities,Functional Mobility ,Pain,ROM,Soft Tissue Mobility ,Strength,Tone Goals Three Impairment Pt reports interuppted sleep due to right shoulder pain Assisted Goal (LTG) Pt to demonstrate ability to sleep on right side without waking due to pain 80% of the time for one week. LTG Duration 09/14/21 Two Impairment Pt unable to perform overhead activities with right arm Seasonal Sales Associate Goal (LTG) Pt to improve right shoulder flexion and abduction to 120? to improve ability to reach overhead when working on his car. LTG Duration 09/14/21 One Impairment Pt does not have an appropriate home exercise program Short Term Goal (STG) Pt to be independent and compliant with an appropriate HEP STG Duration 08/15/21 Assessment Summary Assessment Pt feeling very good about his current level of function, believes he can perform his HEP independently, and it will help enough he may not need any further PT appointments. Is interested in scheduling one appointment in ~1 month in order to be on the schedule if he feels he has plateaued or needs any further assistance. Physical Therapy Plan Frequency and Duration Frequency of Treatment 2x/Week Duration of Treatment Two months Plan of Care Start Date 07/15/21 Plan of Care End Date 09/14/21 Therapeutic Interventions Therapeutic Interventions Home Exercise Program,Joint Mobilizations,Manual Therapy, Patient/Caregiver Education, Self-Care/Home Management,Soft Tissue Mobilization,Taping, Therapeutic Activities, Therapeutic Exercises Modalities Cold Pack/Ice Massage,Electric Stimulation,Hot Packs, Ultrasound Next Visit Focus/Plan Next Note Type Treatment Note Next Visit Plan POC: STM, stretching, shoulder strengthening, joint mobs
--- NOTE | 2022-01-25 11:51 | PT.OPDS ---
Current Diagnoses Other specific arthropathies, not elsewhere classified, right shoulder (07/29/21) Pain in right shoulder (07/29/21) Stiffness of right shoulder, not elsewhere classified (07/29/21) Unspecified rotator cuff tear or rupture of right shoulder, not specified as traumatic (07/29/21) Visit Care Team Role Provider Type Fredy Mejia MD Attending Provider Physician Family Provider Primary Care Provider Referring Provider Specialty: Internal Medicine Address: [address] [place] [address], [address], [place] Email: [email or web address] Visit Number Visit Number 4 Discharge Summary PT-OP-B Current Condition Start: 07/15/21 11:26 Freq: Status: Active Protocol: Document 07/15/21 10:30 DCW (Rec: 07/15/21 11:42 DCW [id number]) Current Condition History of Current Condition Onset Date 5 month history Current Complaints Right shoulder pain and decreased mobility History of Current Condition Pt is a 70 year old male presenting with a five month history or shoulder pain and decreased ROM. Pt notes there was no initial injury, he just suddenly was limited with stiffness and pain during overhead activities. Pt notes he has been able to switch some of his activities to his left hand, which helps him perform his ADLs, but working on his car or trying to lift his right arm overhead is very difficult. Notes there is a deep ache in his right arm, fairly constant, affects his sleep, now unable to sleep on his right side without pain, which is his usual sleeping position. Pt reports symptoms have not really changed since they began, no better or worse than February. PT-OP-C Subjective Start: 07/15/21 11:26 Freq: Status: Active Protocol: Document 07/29/21 11:15 DCW (Rec: 07/29/21 11:59 DCW [id number]) OP-PT Subjective Patient Comments Patient Comments I feel like I've got 80% of my arm back. I still have some limitations, but nothing I'm worried about. PT-OP-E Functional Tests Start: 07/15/21 11:26 Freq: Status: Active Protocol: Document 07/15/21 10:30 DCW (Rec: 07/15/21 11:42 DCW [id number]) Functional Tests Apley's Scratch Test Action 2- Left T1 Action 2- Right R Suboccipitals Action 3- Left T12 Action 3- Right R PSIS PT-OP-F Manual Assessment Start: 07/15/21 11:26 Freq: Status: Active Protocol: Document 07/15/21 10:30 DCW (Rec: 07/15/21 11:42 DCW [id number]) Manual Assessments Soft Tissue Assessment Soft Tissue Mobility Assessment Moderate-severe tone R pec, R infraspinatus, R supraspinatus , R subscap, R levator Joint Mobility Assessment Joint Mobility Assessment Poor R scapulothoracic rhythm, minimal scapular movement with UE ROM, muscle tightness limiting scapular mobility PT-OP-K Range of Motion Start: 07/15/21 11:26 Freq: Status: Active Protocol: Document 07/15/21 10:30 DCW (Rec: 07/15/21 11:42 DCW [id number]) Shoulder Goniometric Range of Motion Shoulder Left Active Flexion 140 Abduction 140 External Rotation at 0 degrees Abduction 60 Internal Rotation Behind Back (text) T12 Right Active Shoulder ROM WFL No Testing Position Sitting Flexion 82 Abduction 70 External Rotation at 0 degrees Abduction 28 Internal Rotation Behind Back (text) R PSIS PT-OP-L Special Tests Start: 07/15/21 11:26 Freq: Status: Active Protocol: Document 07/15/21 10:30 DCW (Rec: 07/15/21 11:42 DCW [id number]) Special Tests Shoulder Special Tests Passive ER Rotator Cuff Test Results Positive R Lift-Off Rotator Cuff Test Results Unable to get to position [place] Impingement Test Results Positive R Empty Can Test Results Positive R Belly Press Test Results Positive R AC Joint Compression Test Results Positive R PT-OP-M Strength Start: 07/15/21 11:26 Freq: Status: Active Protocol: Document 07/15/21 10:30 DCW (Rec: 07/15/21 11:42 DCW [id number]) Shoulder Strength Shoulder Manual Muscle Testing Right Flexion 3- Fair- Abduction (C5) 3- Fair- External Rotation 3- Fair- Internal Rotation 3 Fair PT-OP-T Assessment and Plan Start: 07/15/21 11:26 Freq: Status: Active Protocol: Document 01/25/22 11:50 DCW (Rec: 01/25/22 11:51 DC [id number]) Physical Therapy Assessment Assessment Summary Assessment At time of last visit, pt had wanted one visit a month out to ensure he was still doing well. Pt ended up cancelling that visit, and has now not been seen in five months. Will discharge at this time. Pt will require a new referral in order to return to skilled therapy. Physical Therapy Plan Discharge Physical Therapy Discharge Reasons No Longer Attending PT Next Visit Focus/Plan Next Note Type Discharge Summary
== END 2022-01-26 11:56 | disposition home or self-care (01) ==
LOC: PHYS 11:15
PROVIDERS: Family Provider Student in an Organized Health Care Education/Training Program; PCP Student in an Organized Health Care Education/Training Program; Referring Provider Student in an Organized Health Care Education/Training Program; Visit Provider Student in an Organized Health Care Education/Training Program
DX: M75.101 Unspecified rotator cuff tear or rupture of right shoulder, not specified as traumatic (principal); M12.811 Other specific arthropathies, not elsewhere classified, right shoulder; M25.511 Pain in right shoulder; M25.611 Stiffness of right shoulder, not elsewhere classified
CPT/HCPCS: 97110; 97140; 97161

== ENCOUNTER → 2023-05-18 10:29 | Outpatient (CLI) | payer MEDICARE, SELFPAY ==
[2023-05-18 11:13] LABS: COVID-19 CEPHEID 4-PLEX PCR POSITIVE (Negative); Influenza A - CEPHEID Flu A NEGATIVE (NEGATIVE); Influenza B - CEPHEID Flu B NEGATIVE (NEGATIVE); Respiratory Syncytial Virus Negative (Negative)
== END ==
PROVIDERS: Family Provider Student in an Organized Health Care Education/Training Program; Visit Provider Nurse Practitioner Family
DX: R05.1 Acute cough (principal)
CPT/HCPCS: 0241U

== ENCOUNTER 2023-08-31 09:51 | Emergency (ER) | payer OTHER, SELFPAY ==
[2023-08-31] VITALS (19 sets, daily range): BP systolic 111–166; BP diastolic 63–89; PULSE 63–77; RESP 5; TEMP 36.4; O2SAT 98–100; BMI 26.6
--- NOTE | 2023-08-31 10:02 | ED_ITS ---
HPI - Nausea/Vomiting/Diarrhea General Chief complaint: Nausea/Vomiting/Diarrhea Stated complaint: reaction to medication, constipated Time Seen by Provider: 08/31/23 09:55 Source: patient Mode of arrival: Ambulatory History of Present Illness HPI Narrative: Patient is a 72-year-old male who approximately 10-14 days ago was placed on an antibiotic for a dental issue. He states that afterwards he started to have profuse diarrhea and quite a bit of cramping. He states he looked up the potential complications of the antibiotics so he stopped taking it. He has been off of a now 4 the past several days. He was still having some pain in his lower abdomen in his rectum. Is having quite a bit of cramping. No fevers. No urinary symptoms. No vomiting. He states that he feels like he was constipated yet is having loose stools. Related Data Previous Rx's Medication Instructions Recorded atorvastatin 80 mg tablet 80 mg PO DAILY #90 tabs 11/01/19 camphor-menthol 0.5 %-0.5 % lotion 1 applictn topical BID-QID PRN 11/01/19 (Men-Phor) itching #222 mL furosemide 20 mg tablet 20 mg PO DAILY PRN edema #90 tabs 11/01/19 nitroglycerin 0.3 mg sublingual 0.3 mg sublingual Q5-15M PRN chest 11/01/19 tablet pain #100 tabs terazosin 5 mg capsule 5 mg PO DAILY #90 caps 11/01/19 blood glucose test strips with #1 ea 12/18/19 disposable meter kit blood sugar diagnostic (Accu-Chek #100 ea 12/18/19 Kanika Plus test strips) dabigatran etexilate 150 mg 150 mg PO BID #180 caps 02/07/20 capsule (Pradaxa) losartan 25 mg tablet 25 mg PO TID #270 tabs 02/29/20 metoprolol succinate 50 mg capsule 50 mg PO DAILY #90 ea 02/29/20 sprinkle, ext. release 24 hr sotalol 160 mg tablet 160 mg PO Q12H #180 tabs 02/29/20 hydrochlorothiazide 25 mg tablet 25 mg PO DAILY #90 tabs 05/06/21 triamcinolone acetonide 0.1 % 1 applic topical DAILY Itching or 08/30/23 topical cream rash #454 grams vancomycin 125 mg capsule 125 mg PO QID 10 days #40 caps 08/31/23 Allergies Allergy/AdvReac Type Severity Reaction Status Date / Time No Known Drug Allergies Allergy Verified 08/31/23 09:57 Review of Systems Review of Systems Narrative: See HPI Patient History Medical History Psoriasis Dyspnea on exertion Colonic polyp Diverticulosis of colon (~11/24/11) Atrial flutter (~07/06/11) Memory impairment Hypertension (~2011) Coronary artery disease (~07/06/11) Atrial fibrillation (~2009) Surgical History (Updated 07/14/23 @ 22:30 by Rex Anders MD) Anesthesia S/P CABG x 5 (~1999) History of coronary artery stent placement (~2016) Family History Father Heart disease Mother Hypertension Heart disease Social History marital status: unmarried,living together household members: significant other occupational status: employed Smoking Status: Former smoker alcohol intake: current substance use type: does not use Smoking Status: Former smoker alcohol intake frequency: 0-2 drinks per day Substance Use Type: does not use Exam Initial Vital Signs Initial Vital Signs: Vital Signs Temperature 97.6 F 08/31/23 09:53 Pulse Rate 70 08/31/23 09:53 Respiratory Rate 5 L 08/31/23 09:53 Blood Pressure 154/70 H 08/31/23 09:53 Pulse Oximetry 99 08/31/23 09:53 Oxygen Delivery Method Room Air 08/31/23 09:53 HENAK Head: normal to inspection and normocephalic Resp Effort & Inspection: normal respiratory effort Auscultation: clear to auscultation bilaterally Cardio Rate: regular rate Rhythm: regular rhythm GI Inspection: normal to inspection and non-distended Palpation: soft and tender Skin General: no rashes or lesions noted Neuro General: patient alert and patient awake Course Orders Ordered: ED Orders 08/31/23 10:03 CT abdomen pelvis w con Stat 08/31/23 10:10 Complete Blood Count AUTO DIFF Stat Comprehensive Metabolic Panel Stat Lipase Stat 08/31/23 11:00 GI Panel (Film Array) Stat Urinalysis and Microscopic Stat Discontinued Medications Sodium Chloride (Normal Saline 0.9%) 1,000 mls @ 500 mls/hr IV BOLUS ONE Stop: 08/31/23 12:56 Last Admin: 08/31/23 11:11 Dose: 500 mls/hr Documented By: LLIO Vital Signs Vital signs: Vital Signs - 8 hr 08/31/23 09:53 08/31/23 09:55 08/31/23 09:56 Temperature 97.6 F Pulse Rate 70 71 Respiratory Rate 5 L Blood Pressure 154/70 H 154/70 H Pulse Oximetry 99 100 Oxygen Delivery Method Room Air 08/31/23 09:56 08/31/23 09:59 08/31/23 09:59 Temperature Pulse Rate 70 69 Respiratory Rate Blood Pressure 152/70 H Pulse Oximetry 99 99 Oxygen Delivery Method 08/31/23 10:00 08/31/23 10:00 08/31/23 10:07 Temperature Pulse Rate 70 Respiratory Rate Blood Pressure 159/73 H 131/77 Pulse Oximetry 99 Oxygen Delivery Method 08/31/23 10:07 08/31/23 10:16 08/31/23 10:16 Temperature Pulse Rate 76 65 Respiratory Rate Blood Pressure 119/65 Pulse Oximetry 100 99 Oxygen Delivery Method 08/31/23 10:30 08/31/23 10:30 08/31/23 11:02 Temperature Pulse Rate 63 77 Respiratory Rate Blood Pressure 111/63 Pulse Oximetry 98 Oxygen Delivery Method 08/31/23 11:06 08/31/23 11:06 08/31/23 11:16 Temperature Pulse Rate 67 66 Respiratory Rate Blood Pressure 147/79 H Pulse Oximetry 100 99 Oxygen Delivery Method 08/31/23 11:16 08/31/23 11:30 08/31/23 11:30 Temperature Pulse Rate 64 Respiratory Rate Blood Pressure 138/70 131/64 Pulse Oximetry 99 Oxygen Delivery Method 08/31/23 11:45 08/31/23 11:45 08/31/23 11:55 Temperature Pulse Rate 66 67 Respiratory Rate Blood Pressure 157/81 H Pulse Oximetry 99 100 Oxygen Delivery Method 08/31/23 11:55 08/31/23 12:00 08/31/23 12:00 Temperature Pulse Rate 67 Respiratory Rate Blood Pressure 159/77 H 149/81 H Pulse Oximetry 100 Oxygen Delivery Method 08/31/23 12:15 08/31/23 12:15 08/31/23 12:30 Temperature Pulse Rate 66 Respiratory Rate Blood Pressure 152/72 H 139/71 Pulse Oximetry 99 Oxygen Delivery Method 08/31/23 12:30 Temperature Pulse Rate 67 Respiratory Rate Blood Pressure Pulse Oximetry 99 Oxygen Delivery Method MDM - Nausea/Vomiting/Diarrhea Lab Data Attestation: I reviewed the patient's lab results. 08/31/23 10:10 08/31/23 10:10 Labs: Lab Results 08/31/23 08/31/23 Range/Units 10:10 11:00 WBC 12.2 H (4.5-11.0) X10^3/uL RBC 3.90 L (4.5-5.9) X10^6/uL Hgb 12.1 L (13.5-17.5) g/dL Hct 36.4 L (41-53) % MCV 93.4 (80-100) fL MCH 31.0 (26-34) PG MCHC 33.2 (30-36) % RDW 13.0 (11.6-14.8) % Plt Count 243 (150-400) X10^3/uL Neut % (Auto) 84.4 H (50-75) % Lymph % (Auto) 7.6 L (25-40) % [place] % (Auto) 5.9 (3-14) % Eos % (Auto) 1.6 L (2-4) % Baso % (Auto) 0.5 (0-2) % Neut # (Auto) 80297 H (6308-9125) /uL Lymph # (Auto) 900 L (1992-8146) /uL [place] # (Auto) 700 (0-900) /uL Eos # (Auto) 200 (0-450) /uL Baso # (Auto) 100 (0-100) /uL Sodium 139 (137-145) mmol/L Potassium 4.1 (3.4-5.1) mmol/L Chloride 107 (98-107) mmol/L Carbon Dioxide 25 (22-32) mmol/L BUN 32 H (9-20) mg/dL Creatinine 1.53 H (0.66-1.25) mg/dL Estimated GFR 47 L (>60) mL/min BUN/Creatinine Ratio 20.9 (6-22) Glucose 155 H (80-110) mg/dL Calcium 9.5 (8.4-10.2) mg/dL Total Bilirubin 0.8 (0.2-1.3) mg/dL AST 26 (17-59) IU/L ALT 20 (<50) IU/L Alkaline Phosphatase 87 (38-126) U/L Total Protein 7.3 (6.3-8.2) g/dL Albumin 4.1 (3.5-5.0) g/dL Globulin 3.2 (1.7-4.1) g/dL Albumin/Globulin Ratio 1.3 (1.0-2.8) Lipase 359 H (23-300) U/L Urine Color Yellow Urine Appearance Clear Urine pH 5.5 (4.5-8.0) Ur Specific [place] 1.020 (1.000-1.035) Urine Protein Negative (Negative) Urine Glucose (UA) Negative (Negative) g/dL Urine Ketones Negative (NEGATIVE) Urine Occult Blood Negative (Negative) Urine Nitrate Negative (Negative) Urine Bilirubin Negative (NEGATIVE) Urine Urobilinogen 0.2 (0.2) E.U./dL Ur Leukocyte Esterase Negative (NEGATIVE) Urine RBC None seen (0-5/HPF) Urine WBC None seen (0-5/HPF) Ur Squamous Epith Cells None seen (0-5/HPF) Urine Bacteria None seen (None) Ur Culture Indicated? Cult not indicated Vol Urine Centrifuged 10ml (spun) Stl C. cayetanensis PCR Not detected (Not Detect) Stool Rotavirus (PCR) Not detected (Not Detect) Stool Adenovirus (PCR) Not detected (Not Detect) Stool Astrovirus (PCR) Not detected (Not Detect) Stool Cryptosporidium PCR Not detected (Not Detect) Stl E.coli Shiga Tox PCR Not detected (Not Detect) St Sh/Enteroin Ecoli PCR Not detected (Not Detect) Stl Enterotoxigenic E PCR Not detected (Not Detect) Stool EPEC (PCR) Not detected (Not Detect) Stl E. histolytica PCR Not detected (Not Detect) Stool Giardia Lamblia PCR Not detected (Not Detect) Stool Sapovirus (PCR) Not detected (Not Detect) Stl P. shigelloides PCR Not detected (Not Detect) St Y.enterocolitica PCR Not detected (Not Detect) Stool Vibrio (PCR) Not detected (Not Detect) Stl Vibrio cholerae PCR Not detected (Not Detect) Stl Enteroaggr Ecoli PCR Not detected (Not Detect) Stl Norovirus GI/GII PCR Not detected (Not Detect) Campylobacter (PCR) Not detected (Not Detect) C. difficile Tox (PCR) Detected H (Not Detect) Salmonella (PCR) Not detected (Not Detect) Imaging Data CT scan - abdomen/pelvis: Radiologist's Impression: PROCEDURE: CT ABDOMEN PELVIS W CON INDICATIONS: Generalized abdominal pain with diarrhea TECHNIQUE: After the administration of intravenous contrast, axial sections acquired from the lung bases to the pubic symphysis. Coronal and sagittal reformats were performed. For radiation dose reduction, the following was used: automated exposure control, adjustment of mA and/or kV according to patient size. COMPARISON: None. FINDINGS: Image quality: Diagnostic. Lower Chest: No significant findings. ABDOMEN: Liver: No solid mass. Mild diffuse hepatic steatosis. Gallbladder: No radiopaque gallstones or wall thickening. Biliary ducts: No biliary dilation. Pancreas: No ductal dilation. Spleen: Size is within normal limits. Adrenal Glands: No adrenal nodules. Kidneys and Ureters: No hydronephrosis. There is a 2.4 cm spherical lesion of the right kidney which has a Hounsfield measurement of 100.7. Stomach and Bowel: There is mild wall thickening present in the cecum and right colon and proximal transverse colon. There is wall thickening present involving the descending colon and sigmoid and rectum. There is minimal inflammatory change in the subjacent fat. Consider C difficile colitis versus other infectious or inflammatory colitis. No dilated loops. No free air. No abscess cavity. Peritoneum: No abnormal intraperitoneal fluid. No free air. Ventral Wall: No significant ventral hernia. Abdominal Nodes: No retroperitoneal or mesenteric adenopathy by size criteria. Vessels: Aorta and inferior vena cava are normal in size. PELVIS: Pelvic Organs: Mild prostatomegaly. Bladder: No bladder wall thickening, accounting for underdistention. Pelvic Nodes: No enlarged lymph nodes. Miscellaneous: No inguinal hernias are seen. Bones: No aggressive osseous abnormality. IMPRESSION: 1. Mild wall thickening and inflammatory change involving the cecum and right colon and proximal transverse colon and descending colon and sigmoid colon and rectum. Consider C difficile colitis versus other etiologies of infectious colitis versus inflammatory colitis. 2. 2.4 cm hyperdense right renal lesion. Consider hemorrhagic cyst versus solid mass. Comment: Recommend nonemergent renal ultrasound for further evaluation of the right kidney. MDM Narrative Medical decision making narrative: Patient does have a relatively benign exam. He was have leukocytosis but his sodium is unremarkable. CT scan shows colitis. This is consistent with the stool sample that is positive for C diff. this is most likely caused by his recent treatment with antibiotics for a dental infection. There was no indication for admission hospital he was tolerating oral intake. Will discharge home with antibiotics. He was given return precautions. He expressed understanding and agreement. Discharge Plan Departure Patient Disposition: Home Clinical Impression: Kidney lesion, C. difficile colitis Instructions: DI for Antibiotic -- associated Colitis -- C difficile Activity Restrictions/Additional Instructions: You do need to take the antibiotics as directed. I do recommend that you look up? GoodRx? as this coupon can provide a significant cost savings. There was an incidental finding of what appears to be a benign lesion on your kidneys. This was seen on the CT scan. It is not associated with the diarrhea that you are having today. I recommend you contact your primary care doctor for follow-up with this as radiology recommended a outpatient ultrasound. Return to the emergency department for new symptoms. Prescriptions: New vancomycin 125 mg capsule 125 mg PO QID 10 Days Qty: 40 0RF No Action atorvastatin 80 mg tablet 80 mg PO DAILY Qty: 90 3RF Men-Phor 0.5-0.5 % lotion 1 applictn TOP BID-QID PRN (Reason: itching) Qty: 222 11RF furosemide 20 mg tablet 20 mg PO DAILY PRN (Reason: edema) Qty: 90 1RF nitroglycerin 0.3 mg tablet, sublingual 0.3 mg SL Q5-15M PRN (Reason: chest pain) Qty: 100 3RF terazosin 5 mg capsule 5 mg PO DAILY Qty: 90 3RF (DME) Accu-Chek Kanika Plus test strp Strip See Dose Instructions .ROUTE .MEDSUPPLY Qty: 100 2RF Dose Instruction: As directed Rx Instructions: Use to check blood sugars twice daily (DME) blood glucose strip-disp meter Kit See Rx Instructions .ROUTE .MEDSUPPLY Qty: 1 0RF Rx Instructions: Accu Check- use to check blood sugars daily. Pradaxa 150 mg capsule 150 mg PO BID Qty: 180 1RF Rx Instructions: Take one cap by mouth twice daily. losartan 25 mg tablet 25 mg PO TID Qty: 270 3RF Hold Instructions: Needs labs sotalol 160 mg tablet 160 mg PO Q12H Qty: 180 3RF metoprolol succinate 50 mg capsule,sprinkle,ER 24hr 50 mg PO DAILY Qty: 90 3RF Hold Instructions: Needs labs hydrochlorothiazide 25 mg tablet 25 mg PO DAILY Qty: 90 3RF triamcinolone acetonide 0.1 % cream 1 applic TOP DAILY Qty: 454 11RF Referrals: Rex Anders MD [Primary Care Provider] - Stand Alone Forms: Patient Portal/API
[2023-08-31 10:19] LABS: Add Manual Diff / Slide Review NO; Basophils Absolute Auto 100 /uL (0-100); Basophils Percent Auto 0.5 % (0-2); Eosinophils Absolute Auto 200 /uL (0-450); Eosinophils Percent Auto 1.6 % (2-4); Hematocrit 36.4 % (41-53); Hemoglobin 12.1 g/dL (13.5-17.5); Lymphocytes Absolute Auto 900 /uL (1100-4500); Lymphocytes Percent Auto 7.6 % (25-40); Mean Corpuscular HGB Conc 33.2 % (30-36); Mean Corpuscular Volume 93.4 fL (80-100); Monocytes Absolute Auto 700 /uL (0-900); Monocytes Percent Auto 5.9 % (3-14); Neutrophils Absolute Auto 10300 /uL (1500-7000); Neutrophils Percent Auto 84.4 % (50-75); Platelet Count 243 X10^3/uL (150-400); White Blood Cell Count 12.2 X10^3/uL (4.5-11.0)
[2023-08-31 10:30] LABS: Alanine Aminotransferase 20 IU/L (<50); Albumin 4.1 g/dL (3.5-5.0); Albumin Globulin Ratio 1.3 (1.0-2.8); Alkaline Phosphatase 87 U/L (38-126); Aspartate Aminotransferase 26 IU/L (17-59); BUN Creatinine Ratio 20.9 (6-22); Bilirubin Total 0.8 mg/dL (0.2-1.3); Blood Urea Nitrogen 32 mg/dL (9-20); Calcium 9.5 mg/dL (8.4-10.2); Carbon Dioxide 25 mmol/L (22-32); Chloride 107 mmol/L (98-107); Estimated Glomerular Filt Rate 47 mL/min (>60); Globulin 3.2 g/dL (1.7-4.1); Glucose 155 mg/dL (80-110); HEMOLYSIS < 15 (0-50); Lipase 359 U/L (23-300); Potassium 4.1 mmol/L (3.4-5.1); Sodium 139 mmol/L (137-145); Total Protein 7.3 g/dL (6.3-8.2)
[2023-08-31] MEDS: SODIUM CHLORIDE 0.9% 1,000 ML 500 ML IV (11:11)
[2023-08-31 11:19] LABS: Appearance Urine UA CLEAR; Bilirubin Urine UA NEGATIVE (NEGATIVE); Color Urine UA YELLOW; Glucose Urine UA NEGATIVE (Negative); Ketones Urine UA NEGATIVE (NEGATIVE); Leukocyte Esterase Urine UA NEGATIVE (NEGATIVE); Nitrite Urine UA NEGATIVE (Negative); Occult Blood Urine UA NEGATIVE (Negative); Protein Urine UA NEGATIVE (Negative); Urine Volume 10mL (spun); Urobilinogen Urine UA 0.2 E.U./dL (0.2); pH Urine UA 5.5 (4.5-8.0)
[2023-08-31 11:21] LABS: Bacteria Urine None Seen; RBC Urine None Seen (0-5/HPF); Squamous Epithelial Cell Urine None Seen (0-5/HPF); WBC Urine None Seen (0-5/HPF)
[2023-08-31 11:22] LABS: Culture Indicated Urine Cult Not Indicated
[2023-08-31 12:37] LABS: Adenovirus F 40/41 Not Detected (Not Detect); Astrovirus Not Detected (Not Detect); Campylobacter Not Detected (Not Detect); Cryptosporidium Not Detected (Not Detect); Cyclospora cayetanensis Not Detected (Not Detect); Entamoeba histolytica Not Detected (Not Detect); Enteroaggregative E.coli Not Detected (Not Detect); Enteropathogenic E.coli Not Detected (Not Detect); Enterotoxigenic E.coli It/st Not Detected (Not Detect); Giardia lamblia Not Detected (Not Detect); Norovirus GI/GII Not Detected (Not Detect); Plesiomonsa shigelloides Not Detected (Not Detect); Rotavirus A Not Detected (Not Detect); Salmonella Not Detected (Not Detect); Sapovirus Not Detected (Not Detect); Shiga-like toxin-prod E.coli Not Detected (Not Detect); Shigella/Enteroinvasive E.coli Not Detected (Not Detect); Vibrio Not Detected (Not Detect); Vibrio cholerae Not Detected (Not Detect); Yersinia enterocolitica Not Detected (Not Detect)
[2023-08-31 12:48] LABS: Clostridium difficile toxin AB Detected (Not Detect)
[2023-09-03 12:09] LABS: C difficie Toxins A and B, EIA Positive (Negative)
== END 2023-08-31 13:28 | disposition home or self-care (01) ==
PROVIDERS: Emergency Provider Emergency Medicine; Family Provider Student in an Organized Health Care Education/Training Program; PCP Family Medicine
DX: A04.72 Enterocolitis due to Clostridium difficile, not specified as recurrent (principal); N28.9 Disorder of kidney and ureter, unspecified; R10.84 Generalized abdominal pain
CPT/HCPCS: 36415; 74177; 80053; 81001; 83690; 85025; 87324; 87507; 96360; 96361; 99284; Q9967

== ENCOUNTER 2023-09-14 09:25 | Emergency (ER) | payer OTHER, SELFPAY ==
[2023-09-14 09:27] VITALS: BP 134/71; PULSE 77; RESP 15; TEMP 36.5; O2SAT 100; BMI 25.8
[2023-09-14 09:31] VITALS: BP 134/71; PULSE 77; O2SAT 98
--- NOTE | 2023-09-14 09:46 | ED.NAVMDI ---
HPI - Nausea/Vomiting/Diarrhea General Chief complaint: Nausea/Vomiting/Diarrhea Stated complaint: LBM Time Seen by Provider: 09/14/23 09:30 Source: patient Mode of arrival: Ambulatory History of Present Illness HPI Narrative: Patient is a 72-year-old male. Was seen here in the emergency department a few days ago by myself. Was diagnosed with C diff. Was prescribed vancomycin. He states that he took approximately 5 days of the antibiotics. Started feeling better so he stopped taking the antibiotics. He returns today because of the return of the loose stools. Denies any fevers. No abdominal pain. He did take an Imodium this morning. Related Data Previous Rx's Medication Instructions Recorded atorvastatin 80 mg tablet 80 mg PO DAILY #90 tabs 11/01/19 camphor-menthol 0.5 %-0.5 % lotion 1 applictn topical BID-QID PRN 11/01/19 (Men-Phor) itching #222 mL furosemide 20 mg tablet 20 mg PO DAILY PRN edema #90 tabs 11/01/19 nitroglycerin 0.3 mg sublingual 0.3 mg sublingual Q5-15M PRN chest 11/01/19 tablet pain #100 tabs terazosin 5 mg capsule 5 mg PO DAILY #90 caps 11/01/19 blood glucose test strips with #1 ea 12/18/19 disposable meter kit blood sugar diagnostic (Accu-Chek #100 ea 12/18/19 Kanika Plus test strips) dabigatran etexilate 150 mg 150 mg PO BID #180 caps 02/07/20 capsule (Pradaxa) losartan 25 mg tablet 25 mg PO TID #270 tabs 02/29/20 metoprolol succinate 50 mg capsule 50 mg PO DAILY #90 ea 02/29/20 sprinkle, ext. release 24 hr sotalol 160 mg tablet 160 mg PO Q12H #180 tabs 02/29/20 hydrochlorothiazide 25 mg tablet 25 mg PO DAILY #90 tabs 05/06/21 omeprazole 20 mg tablet,delayed 20 mg PO DAILY #90 tabs 09/09/23 release triamcinolone acetonide 0.1 % 1 applic topical DAILY Itching or 09/09/23 topical cream rash #454 grams vancomycin 125 mg capsule 125 mg PO QID 10 days #40 caps 09/14/23 Allergies Allergy/AdvReac Type Severity Reaction Status Date / Time No Known Drug Allergies Allergy Verified 09/14/23 09:35 Review of Systems Constitutional Constitutional: Reports system reviewed and no additional complaints, except as documented Gastrointestinal Gastrointestinal: Reports system reviewed and no additional complaints, except as documented Genitourinary Genitourinary: Reports system reviewed and no additional complaints, except as documented Integumentary/Breasts Skin/Breast: Reports system reviewed and no additional complaints, except as documented Patient History Medical History Psoriasis Dyspnea on exertion Colonic polyp Diverticulosis of colon (~11/24/11) Atrial flutter (~07/06/11) Memory impairment Hypertension (~2011) Coronary artery disease (~07/06/11) Atrial fibrillation (~2009) Surgical History (Updated 07/14/23 @ 22:30 by Rex Anders MD) Anesthesia S/P CABG x 5 (~1999) History of coronary artery stent placement (~2016) Family History Father Heart disease Mother Hypertension Heart disease Social History marital status: unmarried,living together household members: significant other occupational status: employed Smoking Status: Former smoker alcohol intake: current substance use type: does not use Smoking Status: Former smoker alcohol intake frequency: 0-2 drinks per day Substance Use Type: does not use Exam Initial Vital Signs Initial Vital Signs: Vital Signs Temperature 97.7 F 09/14/23 09:27 Pulse Rate 77 09/14/23 09:27 Respiratory Rate 15 09/14/23 09:27 Blood Pressure 134/71 09/14/23 09:27 Pulse Oximetry 100 09/14/23 09:27 Oxygen Delivery Method Room Air 09/14/23 09:27 HENMT Head: normal to inspection Resp Effort & Inspection: normal respiratory effort GI Inspection: non-distended Course Vital Signs Vital signs: Vital Signs - 8 hr 09/14/23 09:27 Temperature 97.7 F Pulse Rate 77 Respiratory Rate 15 Blood Pressure 134/71 Pulse Oximetry 100 Oxygen Delivery Method Room Air MDM - Nausea/Vomiting/Diarrhea MDM Narrative Medical decision making narrative: I suspect that he was a continued C diff infection since he did not complete the course of antibiotics. He was a benign exam. Appears to be well hydrated. Afebrile. He does not know how many pills of the vancomycin he has a at home. He does not know exactly how many days of the medication that he took. The plan will be is to start him on a new course of 10 days of the vancomycin. It appears that this medication has been helping because after a couple days of the medicines he was starting to feel better the diarrhea was improving. No indication for admission to the hospital today. I do feel that we can hold on any radiologic studies or laboratory work. He was given return precautions. He expressed understanding and agreement. Discharge Plan Departure Patient Disposition: Home Clinical Impression: C. difficile diarrhea Instructions: Clostridioides (Clostridium) difficile Infection Activity Restrictions/Additional Instructions: It is important that you take the complete course of the vancomycin. A new prescription was sent to [facility]. Also contact your primary doctor for a follow-up. Be sure that you were increasing your fluid intake. Return to the emergency department for new symptoms. Prescriptions: New vancomycin 125 mg capsule 125 mg PO QID 10 Days Qty: 40 0RF No Action atorvastatin 80 mg tablet 80 mg PO DAILY Qty: 90 3RF Men-Phor 0.5-0.5 % lotion 1 applictn TOP BID-QID PRN (Reason: itching) Qty: 222 11RF furosemide 20 mg tablet 20 mg PO DAILY PRN (Reason: edema) Qty: 90 1RF nitroglycerin 0.3 mg tablet, sublingual 0.3 mg SL Q5-15M PRN (Reason: chest pain) Qty: 100 3RF terazosin 5 mg capsule 5 mg PO DAILY Qty: 90 3RF (DME) Accu-Chek Kanika Plus test strp Strip See Dose Instructions .ROUTE .MEDSUPPLY Qty: 100 2RF Dose Instruction: As directed Rx Instructions: Use to check blood sugars twice daily (DME) blood glucose strip-disp meter Kit See Rx Instructions .ROUTE .MEDSUPPLY Qty: 1 0RF Rx Instructions: Accu Check- use to check blood sugars daily. Pradaxa 150 mg capsule 150 mg PO BID Qty: 180 1RF Rx Instructions: Take one cap by mouth twice daily. losartan 25 mg tablet 25 mg PO TID Qty: 270 3RF Hold Instructions: Needs labs sotalol 160 mg tablet 160 mg PO Q12H Qty: 180 3RF metoprolol succinate 50 mg capsule,sprinkle,ER 24hr 50 mg PO DAILY Qty: 90 3RF Hold Instructions: Needs labs hydrochlorothiazide 25 mg tablet 25 mg PO DAILY Qty: 90 3RF triamcinolone acetonide 0.1 % cream 1 applic TOP DAILY Qty: 454 11RF omeprazole 20 mg tablet,delayed release (DR/EC) 20 mg PO DAILY Qty: 90 0RF Referrals: Rex Anders MD [Primary Care Provider] - Stand Alone Forms: Patient Portal/API
== END 2023-09-14 09:56 | disposition home or self-care (01) ==
PROVIDERS: Emergency Provider Emergency Medicine; Family Provider Student in an Organized Health Care Education/Training Program; PCP Family Medicine
DX: A04.72 Enterocolitis due to Clostridium difficile, not specified as recurrent (principal)
CPT/HCPCS: 99281; 99283

== ENCOUNTER 2023-09-30 12:48 | Emergency (ER) | payer OTHER, SELFPAY ==
[2023-09-30 13:01] VITALS: BP 160/76; PULSE 74; RESP 16; TEMP 36.7; O2SAT 97; BMI 25.0
--- NOTE | 2023-09-30 13:08 | ED_ITS ---
HPI - General Adult General Chief complaint: Abdominal Pain Stated complaint: thinks he has a hemorrhoid Time Seen by Provider: 09/30/23 12:55 Source: patient Mode of arrival: Ambulatory History of Present Illness HPI narrative: 73-year-old male former smoker with noncontributory medical history presents with a chief complaint of a burning sensation in his rectum after a bowel movement today. He denies any abdominal pain, fever or chills. He denies nausea, vomiting or diarrhea. He denies any history of the same. He states he is on his feet frequently and denies any straining on the toilet. He states he examined himself and felt a lump that he would never noticed before. He denies any blood in his stool. Related Data Previous Rx's Medication Instructions Recorded atorvastatin 80 mg tablet 80 mg PO DAILY #90 tabs 11/01/19 camphor-menthol 0.5 %-0.5 % lotion 1 applictn topical BID-QID PRN 11/01/19 (Men-Phor) itching #222 mL furosemide 20 mg tablet 20 mg PO DAILY PRN edema #90 tabs 11/01/19 nitroglycerin 0.3 mg sublingual 0.3 mg sublingual Q5-15M PRN chest 11/01/19 tablet pain #100 tabs terazosin 5 mg capsule 5 mg PO DAILY #90 caps 11/01/19 blood glucose test strips with #1 ea 12/18/19 disposable meter kit blood sugar diagnostic (Accu-Chek #100 ea 12/18/19 Kanika Plus test strips) dabigatran etexilate 150 mg 150 mg PO BID #180 caps 02/07/20 capsule (Pradaxa) losartan 25 mg tablet 25 mg PO TID #270 tabs 02/29/20 metoprolol succinate 50 mg capsule 50 mg PO DAILY #90 ea 02/29/20 sprinkle, ext. release 24 hr sotalol 160 mg tablet 160 mg PO Q12H #180 tabs 02/29/20 hydrochlorothiazide 25 mg tablet 25 mg PO DAILY #90 tabs 05/06/21 omeprazole 20 mg tablet,delayed 20 mg PO DAILY #90 tabs 09/16/23 release triamcinolone acetonide 0.1 % 1 applic topical DAILY Itching or 09/16/23 topical cream rash #454 grams Allergies Allergy/AdvReac Type Severity Reaction Status Date / Time No Known Drug Allergies Allergy Verified 09/30/23 13:06 Review of Systems Review of Systems Narrative: GENERAL: Denies chills, fatigue, malaise, fever, sweats. HEENT: Denies sinus pain, ear pain, sore throat, difficulty swallowing, dizziness. RESPIRATORY: Denies dyspnea, cough, wheezing, hemoptysis, sputum. CARDIOVASCULAR: Denies chest pain, palpitations, orthopnea, edema, GASTROINTESTINAL: See HPI : Denies dysuria, frequency, incontinence, hematuria, urinary retention. MUSCULOSKELETAL: denies weakness, joint pain, or bony pain SKIN: Denies rash, skin lesions, or other NEUROLOGIC: Denies weakness, headache, numbness, change in speech, confusion, seizures, incoordination. PSYCHIATRIC: No concerning psychosocial issues. 12 point review of systems is negative except for those stated above Patient History Medical History Psoriasis Dyspnea on exertion Colonic polyp Diverticulosis of colon (~11/24/11) Atrial flutter (~07/06/11) Memory impairment Hypertension (~2011) Coronary artery disease (~07/06/11) Atrial fibrillation (~2009) Surgical History Anesthesia S/P CABG x 5 (~1999) History of coronary artery stent placement (~2016) Family History Father Heart disease Mother Hypertension Heart disease Social History marital status: unmarried,living together household members: significant other occupational status: employed Smoking Status: Former smoker alcohol intake: current substance use type: does not use Smoking Status: Former smoker alcohol intake frequency: 0-2 drinks per day Substance Use Type: does not use Exam Narrative Exam Narrative: GEN: AOx3 and in mild distress EYES: Pupils are equal, round, and reactive to light and accommodation. Extraoccular muscles are intact bilaterally. There is no subconjunctival hemorrhage or exudate. CHEST: Lungs are clear to auscultation bilaterally and free of wheezes, rales, or rhonchi. Heart rate is regular rhythm, there are no murmurs, clicks, rubs, or gallops. There is no chest wall tenderness. ABD: Abdomen is soft and nontender. There is no guarding or rebound. Bowel sounds are normal in all 4 quadrants. There is no mass or organomegaly. RECTAL: small hemorrhoid, not thrombosed, no bleeding, no fissure. EXT: Full painless ROM of all extremities with no loss of sensation or strength. SKIN: Warm, pink, and dry. No erythema or rash Initial Vital Signs Initial Vital Signs: Vital Signs Temperature 98.1 F 09/30/23 13:01 Pulse Rate 74 09/30/23 13:01 Respiratory Rate 16 09/30/23 13:01 Blood Pressure 160/76 H 09/30/23 13:01 Pulse Oximetry 97 09/30/23 13:01 Oxygen Delivery Method Room Air 09/30/23 13:01 Course Vital Signs Vital signs: Vital Signs - 8 hr 09/30/23 13:01 Temperature 98.1 F Pulse Rate 74 Respiratory Rate 16 Blood Pressure 160/76 H Pulse Oximetry 97 Oxygen Delivery Method Room Air Medical Decision Making [facility] Narrative Medical decision making narrative: [73] year old patient presents with burning in his rectum and an abnormal lump Multiple etiologies for patient's symptoms considered including, but not limited to: [Hemorrhoid versus other] Prior Charts reviewed in our EMR Primary Historian: patient Labs discussed briefly but we sure the opinion that it is unlikely to affect the disposition so we will hold off for now Imaging not indicated Patient's symptoms improved over duration of stay with above-stated therapies. Findings and discharge diagnosis discussed with patient/family followed by verbalization of understanding Return precautions discussed with patient/family whom verbalize understanding of diagnosis and plan Discharge Plan Departure Patient Disposition: Home Clinical Impression: Hemorrhoid Qualifiers: Hemorrhoid type: unspecified Qualified Code(s): K64.9 - Unspecified hemorrhoids Instructions: DI for Hemorrhoids Activity Restrictions/Additional Instructions: *You have been diagnosed with [hemorrhoid] *What to do: *Please continue to take your regular medications as directed. [ x] please consider [id number] hemorrhoid medications such as preparation H which can be picked up at any local pharmacy. Additionally you may consider stool softeners so you do not strain on the toilet. *Please follow up with your primary care provider in 2-3 days, call for an appointment. Let them know you were seen in the Emergency Department and that we ask that you be seen in follow up. We will electronically transmit a record of today's note if your PCP is in our system *Return to Emergency Department if you should have any new, worsening or concerning symptoms, such as [fever greater than 101 F, shaking chills, worsening pain, persistent vomiting or other bothersome symptoms] Prescriptions: No Action atorvastatin 80 mg tablet 80 mg PO DAILY Qty: 90 3RF Men-Phor 0.5-0.5 % lotion 1 applictn TOP BID-QID PRN (Reason: itching) Qty: 222 11RF furosemide 20 mg tablet 20 mg PO DAILY PRN (Reason: edema) Qty: 90 1RF nitroglycerin 0.3 mg tablet, sublingual 0.3 mg SL Q5-15M PRN (Reason: chest pain) Qty: 100 3RF terazosin 5 mg capsule 5 mg PO DAILY Qty: 90 3RF (DME) Accu-Chek Kanika Plus test strp Strip See Dose Instructions .ROUTE .MEDSUPPLY Qty: 100 2RF Dose Instruction: As directed Rx Instructions: Use to check blood sugars twice daily (DME) blood glucose strip-disp meter Kit See Rx Instructions .ROUTE .MEDSUPPLY Qty: 1 0RF Rx Instructions: Accu Check- use to check blood sugars daily. Pradaxa 150 mg capsule 150 mg PO BID Qty: 180 1RF Rx Instructions: Take one cap by mouth twice daily. losartan 25 mg tablet 25 mg PO TID Qty: 270 3RF Hold Instructions: Needs labs sotalol 160 mg tablet 160 mg PO Q12H Qty: 180 3RF metoprolol succinate 50 mg capsule,sprinkle,ER 24hr 50 mg PO DAILY Qty: 90 3RF Hold Instructions: Needs labs hydrochlorothiazide 25 mg tablet 25 mg PO DAILY Qty: 90 3RF triamcinolone acetonide 0.1 % cream 1 applic TOP DAILY Qty: 454 11RF omeprazole 20 mg tablet,delayed release (DR/EC) 20 mg PO DAILY Qty: 90 3RF Referrals: Rex Anders MD [Primary Care Provider] - Stand Alone Forms: Patient Portal/API
== END 2023-09-30 13:16 | disposition home or self-care (01) ==
PROVIDERS: Emergency Provider Emergency Medicine; Family Provider Student in an Organized Health Care Education/Training Program; PCP Family Medicine
DX: K64.9 Unspecified hemorrhoids (principal)
CPT/HCPCS: 99281

== ENCOUNTER 2023-10-14 12:02 | Inpatient (IN) | payer OTHER, SELFPAY ==
[2023-10-14 12:44] VITALS: BMI 22.1
[2023-10-14 12:53] VITALS: BMI 22.1
[2023-10-14 12:58] LABS: Add Manual Diff / Slide Review NO; Basophils Absolute Auto 0 /uL (0-100); Basophils Percent Auto 0.5 % (0-2); Eosinophils Absolute Auto 100 /uL (0-450); Hematocrit 33.1 % (41-53); Hemoglobin 11.2 g/dL (13.5-17.5); Lymphocytes Absolute Auto 900 /uL (1100-4500); Lymphocytes Percent Auto 13.9 % (25-40); Mean Corpuscular HGB Conc 33.7 % (30-36); Mean Corpuscular Volume 91.9 fL (80-100); Monocytes Absolute Auto 800 /uL (0-900); Neutrophils Absolute Auto 4500 /uL (1500-7000); Neutrophils Percent Auto 71.6 % (50-75); Platelet Count 315 X10^3/uL (150-400); Red Cell Distribution Width 13.2 % (11.6-14.8); White Blood Cell Count 6.3 X10^3/uL (4.5-11.0)
[2023-10-14] MEDS: SODIUM CHLORIDE 0.9% 1,000 ML 1000 ML IV (13:01)
[2023-10-14] MEDS: SODIUM CHLORIDE 0.9% 1,000 ML 125 ML IV ×2 (13:01→21:37)
[2023-10-14 13:18] LABS: Alanine Aminotransferase 10 IU/L (<50); Albumin 3.3 g/dL (3.5-5.0); Albumin Globulin Ratio 1.1 (1.0-2.8); Alkaline Phosphatase 65 U/L (38-126); Aspartate Aminotransferase 21 IU/L (17-59); BUN Creatinine Ratio 19.1 (6-22); Bilirubin Total 0.7 mg/dL (0.2-1.3); Blood Urea Nitrogen 46 mg/dL (9-20); Calcium 8.8 mg/dL (8.4-10.2); Carbon Dioxide 26 mmol/L (22-32); Chloride 105 mmol/L (98-107); Estimated Glomerular Filt Rate 27 mL/min (>60); Globulin 3.1 g/dL (1.7-4.1); Glucose 123 mg/dL (80-110); HEMOLYSIS < 15 (0-50); Magnesium 1.6 mg/dL (1.6-2.3); Phosphorous 3.8 mg/dL (2.3-3.7); Sodium 138 mmol/L (137-145); Total Protein 6.4 g/dL (6.3-8.2)
--- NOTE | 2023-10-14 13:27 | DIET.CONS ---
Dietary Consultation Note Admission Date: 10/14/2023 12:02 Assessment: 73 y M admitted with c. diff, SHANIA. PMH CKD, DM, CHF. Nutrition consulted for decrease in appetite and weight loss. Met with pt and at bedside. Confirms weight loss from UBW around 170 lb to 150 lb now with decreased po intakes starting around August. Within last 2-4 weeks has had 1/3 amount he usually does r/t decreased appetite and has been only having apples, bananas, rice (BRAT diet). Is open to trial of ONS and French yogurt w/ dinner. Added to dinner tray. A1c% last noted: 6.5% on Apr 2021 Nutrition focused physical exam: -Mild loss temporalis -Moderate loss clavicle region and interosseous -Moderate loss orbital, buccal fat pads Ht: 172.72 cm Wt: 66 kg BMI: 22.1 UBW: 77.111 kg on 09/14/23 (-11% weight loss in 1 month, severe) Last BM: 10/14/23 (10/14/23 12:53) MNA: 10 Guido Score: 18 Diet: 10/14/23 Lunch Carbohydrate Consistent Diet Diet Modifications: Carbohydrate level: Medium (3 CHO) Reflex DM orders: No Labs: RBC 3.60 X10^6/uL (4.5-5.9) L 10/14/23 12:34 Hgb 11.2 g/dL (13.5-17.5) L 10/14/23 12:34 Hct 33.1 % (41-53) L 10/14/23 12:34 Nutrition Diagnosis: Severe Acute Protein Calorie Malnutrition r/t inadequate oral intake as evidenced by 11% weight loss in 1 month, severe, <50% of estimated energy needs per diet recall for 14 days, severe, mild to moderate muscle wasting (temporalis, deltoid, pectoralis, trapezius, interosseous), moderate subcutaneous fat loss (orbital and buccal fat pads), BMI underweight for age (22.2), c. difficile Interventions: 1. ONS BID-TID EER: 65-70 g protein (1 g/kg CKD, malnutrition, DM) [id number] kcals (25-30 kcal/kg) Monitoring/Evaluations: ons tolerance, po intakes, f/u in 3 days Electronically Signed by: Mar Prieto 10/14/23 13:27 Clinical Dietitian [address] [address]
--- NOTE | 2023-10-14 15:11 | OT.IPNOTE ---
Attempted OT eval and pt states main issues is C-diff and does not feel that he has any OT needs at this time. Encouraged pt to get up to use the bathroom as pt states is soiled. Pt content to try to use the brief more prior to getting cleaned up, nursing aid aware. To check on pt again for OT eval Tuesday if still here, otherwise pt just wanting to rest for now.
[2023-10-14 16:15] VITALS: BP 105/69; PULSE 69; RESP 16; TEMP 36.2; O2SAT 95
[2023-10-14] MEDS: FIDAXOMICIN 200 MG TABLET PO (16:17)
--- NOTE | 2023-10-14 16:35 | PT.IIE ---
Addendum entered and electronically signed by Cely Montes PT 10/14/23 17:23: PT eval received and reviewed EMR. No H&P found but pt is a direct admit from PCP. reviewed pt's PCP visit note today prior to hospital admission prior to PT eval. Original Note: Surgical History (Last Reviewed 09/30/23 @ 13:10 by Emmett Boyce DO) Anesthesia History of coronary artery stent placement (~2016) S/P CABG x 5 (~1999) Medical History (Last Reviewed 09/30/23 @ 13:10 by Emmett Boyce DO) Atrial fibrillation (~2009) Atrial flutter (~07/06/11) Colonic polyp Coronary artery disease (~07/06/11) Diverticulosis of colon (~11/24/11) Dyspnea on exertion Hypertension (~2011) Memory impairment Psoriasis Physical Therapy Inpatient Evaluation/Re-Eval M1 PT/OT-IP Prior Functional Status Start: 10/14/23 17:09 Freq: NEEDED Status: Active Protocol: Document 10/14/23 16:35 AB (Rec: 10/14/23 17:20 AB [id number]) Medical Review Prior Functional Status Medical History Reviewed Yes Communication able to make needs known Mobility and Gait pt stated that he was independent with all mobilities and ambulation without AD Social History Household Members significant other Living Arrangements Apartment/Condo Number of Floors (Floors) One Floor Number of Stairs To Enter/Railing? 3 steps B rails to enter the house Home Environment Standard Height Toilet,Walk in Shower Home Equipment Shower Seat with Backrest,Grab Bars Near Toilet,Grab Bars In Shower Employment Status Machine Maintenance Supervisor Employed Additional Social History Comment pt works as a residential plumber at [employer] M2 PT-IP Current Condition Start: 10/14/23 17:09 Freq: NEEDED Status: Active Protocol: Document 10/14/23 16:35 AB (Rec: 10/14/23 17:20 AB [id number]) Physical Therapy Current Condition Current Condition Evaluation Date 10/14/23 Treatment Diagnosis c-diff; SHANIA; difficulty in walking Onset Date 10/14/23 M3 PT-IP Subjective Start: 10/14/23 17:09 Freq: NEEDED Status: Active Protocol: Document 10/14/23 16:35 AB (Rec: 10/14/23 17:22 AB [id number]) Subjective Physical Therapy Visit Type Type Initial Evaluation Visit Start Time 16:35 Visit Stop Time 17:06 Number of MEDICAL CLAIMS PROCESSOR Visits 0 Physical Therapy Visit Comments Patient Comments agreeable to do PT Therapy Pain Assessment Pain Present Pain Present Denied Pain M4 PT-IP Mobility and Gait Start: 10/14/23 17:09 Freq: NEEDED Status: Active Protocol: Document 10/14/23 16:35 AB (Rec: 10/14/23 17:20 [id number]) PT-Bed Mobility Assessment Supine to Sit Supine to Sit Standby Assistance Sit to Supine Sit to Supine Standby Assistance PT-Transfer Assessment Sit to and From Stand Sit to and from Stand Standby Assistance,1 Person Assistance,Use of Upper Extremities Equipment Transfer Assistive Device None Orthotic/Prosthetic Devices or Brace: No Transfers Transfer Destination Bed Transfer Technique ambulated Transfer Ability Level of Assist Standby Assistance,Use of Upper Extremities Comments Mobility Comments pt up using the toilet. NAC in room. PT took over pt's care . pt ambulated from the toilet without AD towards the sink SBA. pt was able to maintain standing SBA while completing handwashing. pt requested to go back to bed and ambulated without AD SBA. complete sit to supine SBA. pt rested. agreed to do steps. supine to sit SBa. requires increase time to complete. pt c/o feeling wiped out. completed up/down step stool using FWW to simulate bilateral rails SBA. pt repeated x 2 reps. pt went back to bed sit to supine SBA. positioned pt in bed. call light and table placed within reach. Gait Assessment Gait Gait Assistance Required: Standby Assistance Distance (Feet) 20 Able to Maintain Weight Bearing Status Yes During Gait Assistive Devices Assistive Device None Orthotic/Prosthetic Devices or Brace: No Gait Deviations General Gait Pattern Decreased Stride Length, Decreased Feet Clearance Factors Limiting Gait Function Factors Limiting Gait Function Decreased Activity Tolerance Stair Climbing Assessment Evaluation Level of Assist On Stairs Standby Assistance Devices Stair Climbing Assistive Devices Front Wheel Walker Technique/Endurance Stair Climbing Direction Ascend and Descend Stair Climbing Technique Step to Step Number of Steps Climbed 1 Query Text: Stair Climbing Set # Repetitions (reps) 2 PT-Balance Assessment Sitting Balance and Reactions Static Sitting Balance Ability Normal Dynamic Sitting Balance Ability Good Standing Balance and Reactions Static Standing Balance Ability Good Dynamic Standing Balance Ability Good Device Used without AD M5 PT-IP Objective Assessments Start: 10/14/23 17:09 Freq: NEEDED Status: Active Protocol: Document 10/14/23 16:35 AB (Rec: 10/14/23 17:20 AB [id number]) Orientation Orientation/Cognition Level of Alertness Alert Orientation Name,Place,Situation Language Function Ability No Deficits Noted Safety Awareness Understands Safety Issues Memory Description No Deficits Noted Gross Range of Motion Lower Extremity ROM Assessment Within Functional Limits Strength Lower Extremity Strength Assessment Within Functional Limits Sensation Assessment Sensation Gross Sensation WNL Muscle Tone Muscle Tone WNL Yes M6 PT-IP Treatment Start: 10/14/23 17:09 Freq: NEEDED Status: Active Protocol: Document 10/14/23 16:35 AB (Rec: 10/14/23 17:20 AB [id number]) Physical Therapy Treatment Education Education Provided Safety M7 PT-IP Assessment and Plan Start: 10/14/23 17:09 Freq: NEEDED Status: Active Protocol: Document 10/14/23 16:35 AB (Rec: 10/14/23 17:20 AB [id number]) PT Summary Assessment and Plan Potential Rehabilitation Potential Fair Status of Condition at Evaluation Evolving Summary Impairments Strength,Balance,Bed Mobility, Transfers,Gait,Activity Tolerance Assessment Summary pt is a 73 y/o M who was admitted from the doctor's office for C-diff and SHANIA. pt able to mobilize in room without AD SBA but has decrease activity tolerance requiring increase time to complete tasks. will continue to assess progress. pt plans to go home and pt stated that his spouse will be able to assist him at home. Goals Bed Mobility Goal Independent Transfer Goal Independent Gait Goal Independent Gait Distance 300 Other Goals up/down 3 steps B rails I Days to Meet Goals 10 Frequency of Treatment Frequency Of Treatment Once a Day Treatment Plan Physical Therapy Treatment Plan Bed Mobility Training,Transfer Training,Gait Training, Therapeutic Exercise,Balance Retraining,Discharge Planning, Hot or Cold Pack,Neuromuscular Re-ed,Coordination Retraining Precautions Other Precautions C-diff contact precautions Recommendations To Nursing Amount of Assist Needed Standby Assistance Discharge Recommendations PT Discharge Recommendations Home with Assistance Transportation Needs at Discharge Private Vehicle
--- NOTE | 2023-10-14 17:13 | PM.HP.1 ---
History of Present Illness History of Present Illness Date Patient Seen: 10/14/23 Time Patient Seen: 10:00 Chief complaint: C diff and SHANIA Narrative: Jimi is a 73-year-old male known to me with CAD (s/p CABG) CHF, hypertension, CKD, T2DM who presented to clinic this morning for follow-up of C difficile infection. Symptoms initially started over one month ago after being administered antibiotics in anticipation of a dental procedure for an infected tooth. Rx'd amoxicillin and subsequently developed profuse diarrhea without severe abdominal pain or cramping about one week later. Presented to ER 08/30 and dx'd C diff colitis with positive toxin. Rx'd vancomycin but stopped taking after 5 days because he started to feel better. Re-presented to ER 09/13 due to recurrence of loose stool and was restarted on 10 day course of vancomycin q.i.d., which he completed 3 weeks ago (09/13-09/22). Continues to experience 3-4 loose, brown stools daily. Previously was waking up 2-3x per night due to sudden urge to defecate, now happens perhaps once per night but persistent fecal urgency when he gets up. Sometimes can't make it to bathroom and soils himself. Outpatient labs from 10/11 notable for hemoglobin 11.7, BUN 39, Cr 2.45 (baseline 1.2-1.5), GFR 27 (baseline 50-60), CO2 19, C diff toxin positive. He presented to clinic this morning for follow-up and was demonstrably weak, fatigued, and noted to have lost 25-30 lb over the past month since onset of symptoms. Direct admission was arranged for alternative antibiotic treatment and volume repletion given significant SHANIA and weight loss. [facility] Medical History Psoriasis Dyspnea on exertion Colonic polyp Diverticulosis of colon (~11/24/11) Atrial flutter (~07/06/11) Memory impairment Hypertension (~2011) Coronary artery disease (~07/06/11) Atrial fibrillation (~2009) Surgical History Anesthesia S/P CABG x 5 (~1999) History of coronary artery stent placement (~2016) Family History Father Heart disease Mother Hypertension Heart disease Social History marital status: unmarried,living together household members: significant other occupational status: employed Smoking Status: Former smoker alcohol intake: current substance use type: does not use Meds Home Medications and Allergies Home Medications Medication Instructions Recorded Confirmed Type atorvastatin 80 mg tablet 80 mg PO DAILY #90 tabs 11/01/19 10/14/23 Rx nitroglycerin 0.3 mg sublingual 0.3 mg sublingual Q5-15M PRN chest 11/01/19 10/14/23 Rx tablet pain #100 tabs terazosin 5 mg capsule 5 mg PO DAILY #90 caps 11/01/19 10/14/23 Rx blood glucose test strips with #1 ea 12/18/19 10/14/23 Rx disposable meter kit blood sugar diagnostic (Accu-Chek #100 ea 12/18/19 10/14/23 Rx Kanika Plus test strips) dabigatran etexilate 150 mg 150 mg PO BID #180 caps 02/07/20 10/14/23 Rx capsule (Pradaxa) metoprolol succinate 50 mg capsule 50 mg PO DAILY #90 ea 02/29/20 10/14/23 Rx sprinkle, ext. release 24 hr sotalol 160 mg tablet 160 mg PO Q12H #180 tabs 02/29/20 10/14/23 Rx hydrochlorothiazide 25 mg tablet 25 mg PO DAILY #90 tabs 05/06/21 10/14/23 Rx cyproheptadine 4 mg tablet 4 mg PO BID-TID PRN appetite #60 10/06/23 10/14/23 Rx tabs loperamide 2 mg tablet 2 mg PO QID PRN loose stool #30 10/06/23 10/14/23 Rx (Anti-Diarrheal (loperamide)) tabs furosemide 20 mg tablet 20 mg PO PRN PRN edema 10/14/23 10/14/23 History losartan 25 mg tablet 25 mg PO DAILY 10/14/23 10/14/23 History triamcinolone acetonide 0.1 % 1 applic topical PRN PRN Itching 10/14/23 10/14/23 History topical cream Allergies Allergy/AdvReac Type Severity Reaction Status Date / Time No Known Drug Allergies Allergy Verified 10/14/23 10:00 Review of Systems Review of Systems ROS: Yes All systems reviewed with the patient and are negative except as otherwise documented Exam Vital Signs (past 8 hours): - 10/14/23 16:15 Temperature 97.2 F L Pulse Rate 69 Respiratory Rate 16 Blood Pressure 105/69 Pulse Oximetry 95 Oxygen Flow Rate 0 Oxygen Flow Rate 0 Narrative Exam Narrative: General: Frail, tired appearing HEENT: NC/AT, EOMI, moist membranes CV: RRR, normal S1-S2, 3/6 systolic murmur heard best at RUSB Resp: CTAB, comfortable WOB Abd: Soft, NTND, +BS Ext: No edema Skin: No rash or lesions noted Neuro: A&O x3, moves all extremities, no focal deficits Objective Labs 10/14/23 12:34 10/14/23 12:34 Labs: Laboratory Results - last 24 hr 10/14/23 12:34 WBC 6.3 RBC 3.60 L Hgb 11.2 L Hct 33.1 L MCV 91.9 MCH 31.0 MCHC 33.7 RDW 13.2 Plt Count 315 Neut % (Auto) 71.6 Lymph % (Auto) 13.9 L [place] % (Auto) 13.0 Eos % (Auto) 1.0 L Baso % (Auto) 0.5 Neut # (Auto) 4500 Lymph # (Auto) 900 L [place] # (Auto) 800 Eos # (Auto) 100 Baso # (Auto) 0 Sodium 138 Potassium 4.0 Chloride 105 Carbon Dioxide 26 BUN 46 H Creatinine 2.41 H Estimated GFR 27 L BUN/Creatinine Ratio 19.1 Glucose 123 H Calcium 8.8 Phosphorus 3.8 H Magnesium 1.6 Total Bilirubin 0.7 AST 21 ALT 10 Alkaline Phosphatase 65 Total Protein 6.4 Albumin 3.3 L Globulin 3.1 Albumin/Globulin Ratio 1.1 Assessment & Plan Assessment and plan (1) C. difficile diarrhea: Status: Acute (2) SHANIA (acute kidney injury): Status: Acute (3) Chronic kidney disease (CKD) stage G3a/A2, moderately decreased glomerular filtration rate (GFR) between 45-59 mL/min/1.73 square meter and albuminuria creatinine ratio between 30-299 mg/g: Status: Acute (4) Weakness: Status: Acute (5) Anemia: Qualifiers: Anemia type: unspecified type Qualified Code(s): D64.9 - Anemia, unspecified Status: Acute (6) Diabetes mellitus type 2, diet-controlled: Status: Acute (7) Coronary artery disease: Qualifiers: Coronary Disease-Associated Artery/Lesion type: unspecified vessel or lesion type [place] vs. transplanted heart: [place] heart Associated angina: without angina Qualified Code(s): I25.10 - Atherosclerotic heart disease of [place] coronary artery without angina pectoris Status: Acute (8) Hypertension: Qualifiers: Hypertension type: primary hypertension Qualified Code(s): I10 - Essential (primary) hypertension Status: Chronic Assessment & Plan narrative: 73-year-old male with CAD (s/p CABG) CHF, hypertension, CKD, T2DM admitted for SHANIA and weakness in the setting of 1 month of C diff diarrhea that failed multiple rounds of oral vancomycin outpatient. # C difficile diarrhea -Fidaxomicin 200 mg p.o. b.i.d. times 10 days -Probiotic # SHANIA # CKD # Weakness Likely intravascular volume depletion given elevated BUN -S/p 1 L NS IVF bolus -mIVF 125 cc/hour -Hold home losartan and HCTZ/avoid potentially nephrotoxic meds # Normocytic anemia Chronic, suspect iron deficiency -Iron studies pending # Diabetes Diet controlled -Sensitive ISS # CAD # Hypertension -Continue home sotalol b.i.d. -Hold antihypertensives as above for soft pressures and SHANIA Dispo: Acute care Diet: Carb controlled DVT ppx: Lovenox Code: FULL PCP: [facility] MDM: (Mirta Crowder, ) Time Spent With Patient Time with patient: 30 to 49 minutes with 50% spent counseling/coordinating care Quality VTE Deep Vein Thrombosis/Pulmonary Embolism Present on Admission: No IH PROFEE Charge Codes Initial inpatient/observation care: 26798
[2023-10-14 17:25] VITALS: BMI 22.1
[2023-10-14 18:25] VITALS: BMI 22.1
[2023-10-14] MEDS: SOTALOL 80 MG TABLET 160 MG PO (20:20)
[2023-10-14 20:43] VITALS: BP 130/77; PULSE 75; RESP 16; TEMP 36.6; O2SAT 97
[2023-10-15] MEDS: SODIUM CHLORIDE 0.9% 1,000 ML 125 ML IV (05:40)
[2023-10-15 06:06] VITALS: BP 150/95; PULSE 75; RESP 18; TEMP 35.8; O2SAT 98
[2023-10-15 07:33] LABS: BUN Creatinine Ratio 23.6 (6-22); Blood Urea Nitrogen 33 mg/dL (9-20); Calcium 8.1 mg/dL (8.4-10.2); Carbon Dioxide 21 mmol/L (22-32); Chloride 114 mmol/L (98-107); Estimated Glomerular Filt Rate 52 mL/min (>60); Glucose 95 mg/dL (80-110); HEMOLYSIS < 15 (0-50); Potassium 3.8 mmol/L (3.4-5.1); Sodium 140 mmol/L (137-145)
[2023-10-15 08:07] LABS: Ferritin 125 ng/mL (18-464)
[2023-10-15] MEDS: FIDAXOMICIN 200 MG TABLET PO ×2 (08:13→20:42)
[2023-10-15] MEDS: LACTOBACILLUS ACIDOPHILUS TABLET 1 EACH PO ×3 (08:13→16:42)
[2023-10-15] MEDS: SOTALOL 80 MG TABLET 160 MG PO ×2 (08:13→20:43)
[2023-10-15] MEDS: ENOXAPARIN 30 MG/0.3 ML SYRINGE SUBCUT (08:13)
[2023-10-15 09:47] LABS: HEMOLYSIS 19 (0-50); Total Iron Binding Capacity 167 ug/dL (261-462); Transferrin 109 mg/dL (206-381)
[2023-10-15 10:01] LABS: Iron 31 ug/dL (49-181); Percent Iron Saturation 19 % (20-50)
--- NOTE | 2023-10-15 10:22 | PM.PN.1 ---
Subjective Subjective Date Patient Seen: 10/15/23 Time Patient Seen: 10:23 Interval history: Patient admitted after weeks of Clostridium difficile diarrhea and increasing weakness with evidence of acute kidney injury on lab work as well as persistent diarrhea. He was given vigorous IV fluids and started on fidaxomicin for the C diff diarrhea This morning lab work shows return of renal function to baseline GFR in the mid 50s. Blood pressure has risen slowly (patient's antihypertensives were held upon admission) Patient reports feeling much better. Bowels seem to have slowed significantly. Just does not have that global sense of weakness and being super sick. He was very pleased to wake up this morning feeling that way Exam Vital Signs (past 8 hours): - 10/15/23 06:06 10/15/23 07:35 Temperature 96.4 F L Pulse Rate 75 Respiratory Rate 18 Blood Pressure 150/95 H Pulse Oximetry 98 Oxygen Delivery Method Room Air Oxygen Delivery Method Room Air Oxygen Flow Rate 0 Objective Labs 10/14/23 12:34 10/15/23 06:59 Labs: Laboratory Results - last 24 hr 10/14/23 10/15/23 12:34 06:59 WBC 6.3 RBC 3.60 L Hgb 11.2 L Hct 33.1 L MCV 91.9 MCH 31.0 MCHC 33.7 RDW 13.2 Plt Count 315 Neut % (Auto) 71.6 Lymph % (Auto) 13.9 L [place] % (Auto) 13.0 Eos % (Auto) 1.0 L Baso % (Auto) 0.5 Neut # (Auto) 4500 Lymph # (Auto) 900 L [place] # (Auto) 800 Eos # (Auto) 100 Baso # (Auto) 0 Sodium 138 140 Potassium 4.0 3.8 Chloride 105 114 H Carbon Dioxide 26 21 L BUN 46 H 33 H Creatinine 2.41 H 1.40 H Estimated GFR 27 L 52 L BUN/Creatinine Ratio 19.1 23.6 H Glucose 123 H 95 Calcium 8.8 8.1 L Phosphorus 3.8 H Magnesium 1.6 Iron 31 L TIBC 167 L % Saturation 19 L Transferrin 109 L Ferritin 125 Total Bilirubin 0.7 AST 21 ALT 10 Alkaline Phosphatase 65 Total Protein 6.4 Albumin 3.3 L Globulin 3.1 Albumin/Globulin Ratio 1.1 PFSH Medical History Psoriasis Dyspnea on exertion Colonic polyp Diverticulosis of colon (~11/24/11) Atrial flutter (~07/06/11) Memory impairment Hypertension (~2011) Coronary artery disease (~07/06/11) Atrial fibrillation (~2009) Surgical History Anesthesia S/P CABG x 5 (~1999) History of coronary artery stent placement (~2016) Family History Father Heart disease Mother Hypertension Heart disease Social History marital status: unmarried,living together household members: significant other occupational status: employed Smoking Status: Former smoker alcohol intake: current substance use type: does not use Assessment & Plan Assessment & Plan narrative: 1. C diff colitis with diarrhea-continue fidaxomicin orally as well as probiotics etcetera. Hopefully he is already begun to improve, will see how the day goes today 2. Acute kidney injury-seems to have resolved with return of renal function to baseline. Probably okay to resume some of his home meds which were held over concerns about his renal dysfunction. I think his presenting symptoms of weakness and feeling just global ill more likely than not represented the subjective symptoms coming from his acute kidney injury/dehydration. That has now been corrected and I think we can back off on IV fluids to some extent. 3. Normocytic anemia-iron levels low. Will initiate oral iron replacement therapy 4. Hypertension-will resume patient's metoprolol which he was on at home. Will continue to hold losartan while monitoring blood pressures and renal function 5. Atrial fibrillation/flutter-patient was continued on his sotalol upon admission. Adding back the metoprolol as above and will resume his oral anticoagulation with Pradaxa (now that renal function is at baseline). This will mean he no longer needs Lovenox for VTE prophylaxis which has been discontinued 6. Diabetes-adequate control for now on carb consistent diet with backup insulin per low insulin dosing protocol 7. Coronary disease-no evidence of active coronary disease patient will continue on his antihypertensives and rhythm meds as above 8. Weakness-continue work with physical therapy etcetera Quality VTE Deep Vein Thrombosis/Pulmonary Embolism Present on Admission: No PROFEE Charge codes Subsequent inpatient/observation care: [id number]
[2023-10-15 11:03] VITALS: BP 150/95; PULSE 75
[2023-10-15] MEDS: ATORVASTATIN 20 MG TABLET 80 MG PO (11:03)
[2023-10-15] MEDS: METOPROLOL ER 50 MG TABLET PO (11:03)
[2023-10-15] MEDS: DABIGATRAN 75 MG CAPSULE 150 MG PO ×2 (11:04→20:42)
--- NOTE | 2023-10-15 11:30 | CM.DANOTE ---
Patient is a 73 yo male who was admitted on 10/14/23 for CDiff and SHANIA. Pt has [facility] for insurance and his PCP is Dr. Rex Anders. EMR was reviewed. Per MD, pt with hx of CHF and Type2 DM, and failed outpt abx for CDiff with increased weight loss and weakness. Pt admitted for IV-Abx and fluids. SW met bedside with pt and explained role and pt confirms he lives in [place] with his at home and both are fairly independent at baseline and pt typically does not use DME for ambulation and states his spouse is his DPOA and denies any other local family. Pt drives and has a cane if needed and states his truck is in the parking lot and his spouse does not drive at all and pt plans to drive himself home at discharge. Pt confirms he already is feeling better and was able to eat half his breakfast which is the first time in the past 2-3 weeks. Pt preference is home and hopeful to d/c home in 1-2 days if stable. SW inquired about HH and SNF and pt denies any recent hx with either and currently does not feel either will be needed at d/c. Plan: SW to follow closely for pt progress to confirm safe d/c home via own vehicle and spouse assist and r/o any HH needs. CORNEL Robertson Discharge Planning/Care Management CM Discharge Assessment Start: 10/15/23 11:28 Freq: Status: Active Protocol: Document 10/15/23 11:28 BF (Rec: 10/15/23 11:30 [id number]) Discharge Planning Assessment Assigned Water Maintenance Supervisor CORNEL Grullon DPOA/Assigned Designee Name spouse Mirta Contact Information [phone] Advance Directives? Yes Advance Directives on File No History Provided By Patient,Family Member,Medical Record Has Patient been admitted in last 30 No days? Prior Living Arrangements Apartment/Condo Household Members spouse Type of transporation used prior to Drives own vehicle admit Comment Pt drives and has own vehicle in parking lot but spouse doesn't drive Independent with ADL's Yes Is patient alert and oriented? Yes Caregiver for Another No DME Already Rented / Owned Cane Barriers to Discharge No Discharge Plan Home Transportation Arrangement Pt's vehicle is in the parking lot and plans to drive himself home Referrals Initiated None needed Additional Comment r/o HH Whiteboard Updated in Patient Room with Yes name and ext. # of Water Maintenance Supervisor Review Status In Process Please Provide Date Initial DC 10/15/23 Assessment Was Performed Next Review Type Continued Stay Review
--- NOTE | 2023-10-15 11:35 | PT-IP ANOTE ---
Pt refused to work with PT this morning. When asked if he would like to continue with PT, pt states that he doesn't feel he needs it and he is moving on his own in the room. Pt will be d/c from therapy.
[2023-10-15 12:17] VITALS: BP 148/87
[2023-10-15 13:00] VITALS: BP 112/70; PULSE 67; RESP 16; TEMP 36.6; O2SAT 95
--- NOTE | 2023-10-15 13:28 | PT.IPTN ---
Current Diagnoses Enterocolitis due to Clostridium difficile, not specified as recurrent (10/14/23) Anemia, unspecified (10/14/23) Type 2 diabetes mellitus without complications (10/14/23) Essential (primary) hypertension (10/14/23) Atherosclerotic heart disease of [place] coronary artery without angina pectoris (10/14/23) Acute kidney failure, unspecified (10/14/23) Chronic kidney disease, stage 3a (10/14/23) Weakness (10/14/23) Physical Therapy Treatment Note M2 PT-IP Current Condition Start: 10/14/23 17:09 Freq: NEEDED Status: Active Protocol: Document 10/14/23 16:35 AB (Rec: 10/14/23 17:20 AB [id number]) Physical Therapy Current Condition Current Condition Evaluation Date 10/14/23 Treatment Diagnosis c-diff; SHANIA; difficulty in walking Onset Date 10/14/23 M3 PT-IP Subjective Start: 10/14/23 17:09 Freq: NEEDED Status: Active Protocol: Document 10/15/23 13:26 AB (Rec: 10/15/23 13:27 AB [id number]) Subjective Physical Therapy Visit Type Type Patient Refusal Notes Per CHEMICAL UNIT OPERATOR, pt refusing PT and wants d/c from PT. nursing staff stated that pt is SBA with mobility but does not want to move much. informed regarding d/c. M7 PT-IP Assessment and Plan Start: 10/14/23 17:09 Freq: NEEDED Status: Active Protocol: Document 10/15/23 13:26 AB (Rec: 10/15/23 13:27 AB [id number]) PT Summary Assessment and Plan Frequency of Treatment Frequency Of Treatment Discharge
[2023-10-15 20:32] VITALS: BP 128/81; PULSE 68; RESP 16; TEMP 37.4; O2SAT 98
[2023-10-16] MEDS: SODIUM CHLORIDE 0.9% 1,000 ML 80 ML IV (02:08)
--- NOTE | 2023-10-16 03:35 | PC.NURSE ---
Patient is A & O x 4, had an episode of confusion during the night. Found patient with IV tubing ripped apart at the port, PIV still intact and draining blood. Blood all over room and furniture. Patient stated he was cold and wanted to put something warmer on so he pulled apart the tube and didn't use the call light because he didn't want to bother us. Explained that it is not a bother to call us, he needs to for safety. Also explained that he should not rip apart the IV tubing. Instructed patient to use the call light when he wants to get up. Patient verbalized understanding. Bed alarm on. Patient has had three loose BMs so far this shift.
[2023-10-16 06:36] LABS: BUN Creatinine Ratio 20.4 (6-22); Blood Urea Nitrogen 21 mg/dL (9-20); Calcium 8.3 mg/dL (8.4-10.2); Carbon Dioxide 23 mmol/L (22-32); Chloride 114 mmol/L (98-107); Estimated Glomerular Filt Rate > 60 mL/min (>60); Glucose 125 mg/dL (80-110); HEMOLYSIS < 15 (0-50); Sodium 142 mmol/L (137-145)
[2023-10-16 08:00] VITALS: BP 163/78; PULSE 71; RESP 16; TEMP 36.8; O2SAT 95
[2023-10-16] MEDS: FIDAXOMICIN 200 MG TABLET PO (09:18)
[2023-10-16] MEDS: SOTALOL 80 MG TABLET 160 MG PO (09:18)
[2023-10-16] MEDS: DABIGATRAN 75 MG CAPSULE 150 MG PO (09:18)
[2023-10-16] MEDS: FERROUS SULFATE 325 MG TABLET PO (09:18)
[2023-10-16] MEDS: ATORVASTATIN 20 MG TABLET 80 MG PO (09:18)
[2023-10-16] MEDS: TERAZOSIN 1 MG CAPSULE 5 MG PO (09:18)
[2023-10-16] MEDS: LACTOBACILLUS ACIDOPHILUS TABLET 1 EACH PO (09:18)
[2023-10-16] MEDS: METOPROLOL ER 50 MG TABLET PO (09:18)
[2023-10-16] MEDS: ASCORBIC ACID 500 MG TABLET PO (09:18)
--- NOTE | 2023-10-16 10:33 | PM.DS.1 ---
History of Present Illness History of Present Illness Date Patient Seen: 10/16/23 Time Patient Seen: 10:33 Chief complaint: C diff and SHANIA Narrative: Jimi is a 73-year-old male known to me with CAD (s/p CABG) CHF, hypertension, CKD, T2DM who presented to clinic this morning for follow-up of C difficile infection. Symptoms initially started over one month ago after being administered antibiotics in anticipation of a dental procedure for an infected tooth. Rx'd amoxicillin and subsequently developed profuse diarrhea without severe abdominal pain or cramping about one week later. Presented to ER 08/30 and dx'd C diff colitis with positive toxin. Rx'd vancomycin but stopped taking after 5 days because he started to feel better. Re-presented to ER 09/13 due to recurrence of loose stool and was restarted on 10 day course of vancomycin q.i.d., which he completed 3 weeks ago (09/13-09/22). Continues to experience 3-4 loose, brown stools daily. Previously was waking up 2-3x per night due to sudden urge to defecate, now happens perhaps once per night but persistent fecal urgency when he gets up. Sometimes can't make it to bathroom and soils himself. Outpatient labs from 10/11 notable for hemoglobin 11.7, BUN 39, Cr 2.45 (baseline 1.2-1.5), GFR 27 (baseline 50-60), CO2 19, C diff toxin positive. He presented to clinic this morning for follow-up and was demonstrably weak, fatigued, and noted to have lost 25-30 lb over the past month since onset of symptoms. Direct admission was arranged for alternative antibiotic treatment and volume repletion given significant SHANIA and weight loss. {from Dr. Anders's H&P} Discharge Providers Provider Date of admission: 10/14/23 12:02 Discharge Date: 10/16/23 Primary care physician: Rex Anders MD Consults: 10/14/23 12:23 Consult to Dietitian, Adult Routine Comment: Reason For Exam: Poor appetite, >10% weight loss from baseline 170 Consult to Discharge Planning Routine Comment: Consult to Occupational Therapy Evaluate & Treat Comment: Physician Instructions: Evaluate and treat Consult to Physical Therapy Evaluate & Treat Comment: Physician Instructions: Evaluate and Treat Discharge provider: Malcolm Carrillo MD Summary Hospital Course Discharge Diagnosis: 1. C diff colitis 2. Acute kidney injury, resolved 3. Chronic renal failure stage 3 a 4. Diabetes type 2 5. Coronary artery disease, not active this hospitalization 6. Hypertension 7. Atrial fibrillation Hospital Course: Patient was admitted as above. Overnight after IV fluids patient's renal function improved back to baseline that is subsequently actually normalized. With the initial improvement in renal function and hydration patient felt tremendously better. Patient was continued on the oral fidaxomicin and had no further diarrhea during this hospitalization Patient is antihypertensive regimen was held because of the acute kidney injury and modest hypotension upon admission. These were slowly restarted but patient remained minimally hypertensive upon discharge. I left patient off of his losartan as his renal function actually returned to normal and I wonder if the ARB as causing some mild renal dysfunction. I also question the combination of sotalol and metoprolol but reviewing patient's cardiology notes from last august indeed it appears Cardiology intended him to be on both medications and refilled his metoprolol last month, so I continued that as well Patient was up and around in his room felt fine felt like he was ready to go home Exam Vital Signs (past 8 hours): - 10/16/23 08:00 Temperature 98.3 F Pulse Rate 71 Respiratory Rate 16 Blood Pressure 163/78 H Pulse Oximetry 95 Oxygen Delivery Method Room Air Oxygen Flow Rate 0 Objective Labs 10/14/23 12:34 10/16/23 06:13 Labs: Laboratory Results - last 24 hr 10/16/23 06:13 Sodium 142 Potassium 4.0 Chloride 114 H Carbon Dioxide 23 BUN 21 H Creatinine 1.03 Estimated GFR > 60 BUN/Creatinine Ratio 20.4 Glucose 125 H Calcium 8.3 L [facility] Medical History Psoriasis Dyspnea on exertion Colonic polyp Diverticulosis of colon (~11/24/11) Atrial flutter (~07/06/11) Memory impairment Hypertension (~2011) Coronary artery disease (~07/06/11) Atrial fibrillation (~2009) Surgical History Anesthesia S/P CABG x 5 (~1999) History of coronary artery stent placement (~2016) Family History Father Heart disease Mother Hypertension Heart disease Social History marital status: unmarried,living together household members: spouse occupational status: employed Smoking Status: Former smoker alcohol intake: current substance use type: does not use Discharge Assessment & Plan Assessment and Plan Plan of Treatment: Continue the 9 days of the oral fidaxomicin for his C diff colitis which based on current clinical response I would expect will eliminate it Continue monitor blood pressure carefully, continue on metoprolol for blood pressure control as well as the sotalol for rhythm control. He will remain off of losartan and off of hydrochlorothiazide for now Patient will need a sooner rather than later follow up with his PCP to ensure his colitis is resolving and monitor his blood pressure. This is discussed with patient at length. Discharge Plan Discharge Plan Patient Disposition: Home Discharge orders & Medications Prescriptions: New Dificid 200 mg Tablet 200 mg PO BID Qty: 18 2RF metoprolol succinate 25 mg tablet extended release 24 hr 25 mg PO DAILY Qty: 30 0RF Continued cyproheptadine 4 mg tablet 4 mg PO BID-TID PRN (Reason: appetite) Qty: 60 1RF loperamide [Anti-Diarrheal (loperamide)] 2 mg tablet 2 mg PO QID PRN (Reason: loose stool) Qty: 30 0RF atorvastatin 80 mg tablet 80 mg PO DAILY Qty: 90 3RF nitroglycerin 0.3 mg tablet, sublingual 0.3 mg SL Q5-15M PRN (Reason: chest pain) Qty: 100 3RF terazosin 5 mg capsule 5 mg PO DAILY Qty: 90 3RF (DME) Accu-Chek Kanika Plus test strp Strip See Dose Instructions .ROUTE .MEDSUPPLY Qty: 100 2RF Dose Instruction: As directed Rx Instructions: Use to check blood sugars twice daily (DME) blood glucose strip-disp meter Kit See Rx Instructions .ROUTE .MEDSUPPLY Qty: 1 0RF Rx Instructions: Accu Check- use to check blood sugars daily. Pradaxa 150 mg capsule 150 mg PO BID Qty: 180 1RF Rx Instructions: Take one cap by mouth twice daily. sotalol 160 mg tablet 160 mg PO Q12H Qty: 180 3RF Patient Comments: am/pm hydrochlorothiazide 25 mg tablet 25 mg PO DAILY Qty: 90 3RF triamcinolone acetonide 0.1 % cream 1 applic TOP PRN PRN (Reason: Itching) furosemide 20 mg tablet 20 mg PO PRN PRN (Reason: edema) Discontinued metoprolol succinate 50 mg capsule,sprinkle,ER 24hr 50 mg PO DAILY Qty: 90 3RF Hold Instructions: Needs labs losartan 25 mg tablet 25 mg PO DAILY Follow up/Referrals: Rex Anders MD [Primary Care Provider] - 1 Week Discharge Health Status Multidrug resistant organism: No MDRO Diet/Activity/Treatments Diet: Diet as Tolerated and Carb-consistent/Diabetic Visit Report/Discharge Packet Stand Alone Forms: Patient Portal/API, Stroke Signs & Symptoms Discharge Data Primary Care Provider: Rex Anders Quality VTE Deep Vein Thrombosis/Pulmonary Embolism Present on Admission: No IH PROFEE Charge Codes Discharge inpatient/observation: [id number]
--- NOTE | 2023-10-16 11:23 | CM.DPC ---
DCP Cont. Reviewed EMR and team rounds for status updates. Pt has been medically cleared for d/c, his car is in the parking lot and he will be driving himself home, no further DCP needs identified at this time.
--- NOTE | 2023-10-16 14:41 | PC.NURSE ---
Patient discharged earlier.
== END 2023-10-16 13:17 | disposition home or self-care (01) | DRG 371 ==
PROVIDERS: Internal Medicine; Admitting Provider Family Medicine; Family Provider Student in an Organized Health Care Education/Training Program; PCP Family Medicine; Referring Provider Family Medicine; Visit Provider Family Medicine
DX: A04.72 Enterocolitis due to Clostridium difficile, not specified as recurrent (principal); E43 Unspecified severe protein-calorie malnutrition; N17.9 Acute kidney failure, unspecified; E11.22 Type 2 diabetes mellitus with diabetic chronic kidney disease; I12.9 Hypertensive chronic kidney disease with stage 1 through stage 4 chronic kidney disease, or unspecified chronic kidney disease; N18.31 Chronic kidney disease, stage 3a; D64.9 Anemia, unspecified; I48.91 Unspecified atrial fibrillation; R53.1 Weakness; Z95.1 Presence of aortocoronary bypass graft; Z68.22 Body mass index [BMI] 22.0-22.9, adult; Z87.891 Personal history of nicotine dependence; Z79.01 Long term (current) use of anticoagulants
CPT/HCPCS: 36415; 80048; 80053; 82728; 82962; 83540; 83550; 83735; 84100; 85025; 97162; 97530; J1650

== ENCOUNTER 2023-11-22 04:27 | Emergency (ER) | payer OTHER, SELFPAY ==
[2023-11-22] VITALS (21 sets, daily range): BP systolic 86–132; BP diastolic 51–77; PULSE 68–122; RESP 16–29; TEMP 36.8; O2SAT 96–99; BMI 24.3
--- NOTE | 2023-11-22 04:35 | EKG_ITS ---
[facility] [address] [place] [address] Test Date: 2023-11-22 Pat Name: Redd Lucio Department: Room: Gender: Male Rock Dust Sprayer: EMEKA Christensen : 1950 Requested By: Order Number: [id number] Reading MD: Malcolm Carrillo MD Measurements Intervals [place] Rate: 106 P: [place]: QRS: -3 QRSD: 116 T: 90 QT: 366 QTc: 486 Interpretive Statements Atrial fibrillation with rapid ventricular response with premature ventricular or aberrantly conducted complexes Nonspecific ST abnormality NO PRIOR TRACING Electronically Signed On 11-22-2023 7:24:25 PDT by Malcolm Carrillo MD
--- NOTE | 2023-11-22 04:41 | DI.RAD.S_ITS ---
PROCEDURE: XR CHEST 1V INDICATIONS: chest pain TECHNIQUE: One view of the chest was acquired. COMPARISON: None. FINDINGS: Surgical changes and devices: CABG postsurgical changes. Lungs and pleura: Lungs are clear. No pleural effusions or pneumothorax. Mediastinum: Mediastinal contours appear normal. Heart size is normal. Bones and chest wall: No suspicious bony lesions. Overlying soft tissues appear unremarkable. IMPRESSION: No acute cardiopulmonary abnormality is seen. Dictated by: Anna Medrano MD, PhD on 11/22/2023 at 9:10 Approved by: Anna Medrano MD, PhD on 11/22/2023 at 9:11
--- NOTE | 2023-11-22 04:44 | ED_ITS ---
HPI - Chest Pain General Chief Complaint: Chest Pain Stated Complaint: chest pain Time Seen by Provider: 11/22/23 04:39 Source: EMS Mode of arrival: EMS History of Present Illness HPI narrative: 73-year-old male with history of atrial fibrillation on sotalol, metoprolol, and Pradaxa, CAD, CHF, hypertension, CKD, diabetes presents by EMS from home for ?AFib attack?. Patient states that he woke up in the middle of the night to have a bowel movement. He ended up having several bowel movements and afterwards he felt himself go into atrial fibrillation. He states that this did not resolve and so he called 911. EMS states that when they arrived patient's heart rate was variable between 90-150 beats per minute, in atrial fibrillation. They started him on gentle fluids but did not administer any antiarrhythmic medications. When EMS arrived to the patient's residence he did complain of 2/10 chest pain, so they gave 325 of aspirin. On arrival patient is noted to still be in atrial fibrillation, however he states that his chest pressure is gone and he feels better. Follows with Dr. Barrett of Cardiology Related Data Home Medications Medication Instructions Recorded Confirmed furosemide 20 mg tablet 20 mg PO PRN PRN edema 10/14/23 10/21/23 triamcinolone acetonide 0.1 % 1 applic topical PRN PRN Itching 10/14/23 10/21/23 topical cream Previous Rx's Medication Instructions Recorded atorvastatin 80 mg tablet 80 mg PO DAILY #90 tabs 11/01/19 nitroglycerin 0.3 mg sublingual 0.3 mg sublingual Q5-15M PRN chest 11/01/19 tablet pain #100 tabs blood glucose test strips with #1 ea 12/18/19 disposable meter kit blood sugar diagnostic (Accu-Chek #100 ea 12/18/19 Kanika Plus test strips) dabigatran etexilate 150 mg 150 mg PO BID #180 caps 02/07/20 capsule (Pradaxa) sotalol 160 mg tablet 160 mg PO Q12H #180 tabs 02/29/20 hydrochlorothiazide 25 mg tablet 25 mg PO DAILY #90 tabs 05/06/21 cyproheptadine 4 mg tablet 4 mg PO BID-TID PRN appetite #60 10/06/23 tabs loperamide 2 mg tablet 2 mg PO QID PRN loose stool #30 10/06/23 (Anti-Diarrheal (loperamide)) tabs fidaxomicin 200 mg tablet (Dificid) 200 mg PO BID #16 tabs 11/04/23 metoprolol succinate 25 mg See Rx Instructions .Route 11/21/23 tablet,extended release 24 hr .COMPLEX #30 tabs terazosin 5 mg capsule 5 mg PO DAILY #90 caps 11/21/23 Allergies Allergy/AdvReac Type Severity Reaction Status Date / Time amoxicillin AdvReac Mild Diarrhea Verified 10/21/23 14:21 Patient History Medical History Psoriasis Dyspnea on exertion Colonic polyp Diverticulosis of colon (~11/24/11) Atrial flutter (~07/06/11) Memory impairment Hypertension (~2011) Coronary artery disease (~07/06/11) Atrial fibrillation (~2009) Surgical History Anesthesia S/P CABG x 5 (~1999) History of coronary artery stent placement (~2016) Family History Father Heart disease Mother Hypertension Heart disease Social History marital status: unmarried,living together household members: spouse occupational status: employed Smoking Status: Former smoker alcohol intake: current substance use type: does not use Smoking Status: Former smoker alcohol intake frequency: 0-2 drinks per day Substance Use Type: does not use Exam Initial Vital Signs Initial Vital Signs: Vital Signs Pulse Rate 107 H 11/22/23 04:31 Respiratory Rate 22 11/22/23 04:31 Blood Pressure 118/61 11/22/23 04:31 Pulse Oximetry 99 11/22/23 04:31 Oxygen Delivery Method Room Air 11/22/23 04:31 Const: Awake, alert, no acute distress, nontoxic appearing Cardiac: Tachycardia, irregularly irregular rhythm RESP: unlabored, clear bilaterally, no wheezing Skin: Warm, Dry, intact, no rashes Neuro: AO x3, CN II-XII grossly intact, moves all extremities Procedures Cardioversion Consent Signed: Yes Indication: Atrial fibrillation on sotalol Stability: Stable Number of attempts (shocks): 1 Joules used: 150 Cardiac rhythm post-cardioversion: Sinus rhythm with first-degree AV block Procedural Sedation Consent signed: Yes Time out performed: Yes Indication: cardioversion ASA Class: III Mallampati Airway Classification: Class I Time of Last PO Intake: 18:00 Preparation: sewage disposal engineer applied, pulse oximeter, capnometry used, supplemental O2 applied, suction/airway equipment at bedside and IV secured IV Propofol dose (mg): 60 Intraservice time/total sedation time (min): 10 ED Sedation Level: Moderate (Concious) Patient Tolerated Procedure: Well and No complications Complications: none Course Orders Ordered: ED Orders 11/22/23 04:32 Complete Blood Count AUTO DIFF Stat Comprehensive Metabolic Panel Stat Lipase Stat Magnesium Stat NT-proBNP (BNP-Adult 18+) Stat PTT Partial Thromboplastin Juan Stat Prothrombin Time INR Stat Troponin & CK Cardiac Panel Stat 11/22/23 04:41 XR chest 1V Stat EKG-12 Lead Stat 11/22/23 05:10 EKG-12 Lead Stat Discontinued Medications Propofol (Propofol 200 Mg/20 Ml Vial) 100 mg IV NOW ONE Stop: 11/22/23 04:48 Last Admin: 11/22/23 05:05 Dose: 100 mg Documented By: AB Vital Signs Vital signs: Vital Signs - 8 hr 11/22/23 04:31 11/22/23 04:31 11/22/23 04:33 Temperature 98.3 F Pulse Rate 107 H 113 H Respiratory Rate 22 19 Blood Pressure 118/61 118/61 Pulse Oximetry 99 99 Oxygen Delivery Method Room Air Room Air 11/22/23 04:35 11/22/23 04:40 11/22/23 04:45 Temperature Pulse Rate 113 H 120 H 112 H Respiratory Rate 19 20 20 Blood Pressure Pulse Oximetry 98 99 99 Oxygen Delivery Method 11/22/23 04:50 11/22/23 04:55 11/22/23 05:00 Temperature Pulse Rate 121 H 104 H 108 H Respiratory Rate 20 17 17 Blood Pressure Pulse Oximetry 99 99 98 Oxygen Delivery Method 11/22/23 05:05 11/22/23 05:06 11/22/23 05:06 Temperature Pulse Rate 118 H 122 H Respiratory Rate 22 18 Blood Pressure 132/77 Pulse Oximetry 98 98 Oxygen Delivery Method 11/22/23 05:10 11/22/23 05:11 11/22/23 05:11 Temperature Pulse Rate 69 68 Respiratory Rate 22 21 Blood Pressure 86/51 L Pulse Oximetry 98 96 Oxygen Delivery Method Room Air 11/22/23 05:14 11/22/23 05:15 11/22/23 05:15 Temperature Pulse Rate 69 70 Respiratory Rate 24 22 Blood Pressure 86/52 L Pulse Oximetry 98 Oxygen Delivery Method Room Air 11/22/23 05:20 11/22/23 05:20 11/22/23 05:25 Temperature Pulse Rate 68 69 Respiratory Rate 29 H 21 Blood Pressure 88/54 L Pulse Oximetry 99 99 Oxygen Delivery Method 11/22/23 05:25 Temperature Pulse Rate Respiratory Rate Blood Pressure 97/54 L Pulse Oximetry Oxygen Delivery Method MDM - Chest Pain Differential Diagnosis Differential diagnosis: Likely pneumothorax, atypical chest pain and costochondritis Lab Data 11/22/23 04:32 11/22/23 04:32 Labs: Lab Results 11/22/23 Range/Units 04:32 WBC 15.5 H (4.5-11.0) X10^3/uL RBC 3.30 L (4.5-5.9) X10^6/uL Hgb 10.3 L (13.5-17.5) g/dL Hct 31.1 L (41-53) % MCV 94.3 (80-100) fL MCH 31.1 (26-34) PG MCHC 33.0 (30-36) % RDW 15.1 H (11.6-14.8) % Plt Count 259 (150-400) X10^3/uL Neut % (Auto) 89.4 H (50-75) % Lymph % (Auto) 6.2 L (25-40) % Stanton % (Auto) 2.8 L (3-14) % Eos % (Auto) 0.9 L (2-4) % Baso % (Auto) 0.7 (0-2) % Neut # (Auto) 95356 H (9847-4220) /uL Lymph # (Auto) 1000 L (6073-4991) /uL Stanton # (Auto) 400 (0-900) /uL Eos # (Auto) 100 (0-450) /uL Baso # (Auto) 100 (0-100) /uL PT 12.2 (9.4-12.5) SECONDS INR 1.1 (0.9-1.3) APTT 45 H (25.1-36.5) SECONDS Sodium 135 L (137-145) mmol/L Potassium 4.7 (3.4-5.1) mmol/L Chloride 104 (98-107) mmol/L Carbon Dioxide 28 (22-32) mmol/L BUN 20 (9-20) mg/dL Creatinine 1.07 (0.66-1.25) mg/dL Estimated GFR > 60 (>60) mL/min BUN/Creatinine Ratio 18.7 (6-22) Glucose 185 H (80-110) mg/dL Calcium 8.9 (8.4-10.2) mg/dL Magnesium 1.8 (1.6-2.3) mg/dL Total Bilirubin 0.6 (0.2-1.3) mg/dL AST 31 (17-59) IU/L ALT 18 (<50) IU/L Alkaline Phosphatase 62 (38-126) U/L Total Creatine Kinase 23 L (55-170) U/L Troponin I < 0.012 (0.01-0.034) ng/mL NT-Pro-B Natriuret Pep 2750 H (<450) pg/mL Total Protein 6.6 (6.3-8.2) g/dL Albumin 3.4 L (3.5-5.0) g/dL Globulin 3.2 (1.7-4.1) g/dL Albumin/Globulin Ratio 1.1 (1.0-2.8) Lipase 518 H (23-300) U/L ECG Data Interpretation: Atrial fibrillation with rapid ventricular response, 106 beats per minute, QTC 486, no ST T wave changes EKG 2: Sinus rhythm with first-degree AV block 68 beats per minute, no ST T wave changes MDM Narrative Medical decision making narrative: Patient on sotalol and metoprolol who went into atrial fibrillation. Rate is variable between 90-120 beats per minute in the exam room. Patient reports compliance with Pradaxa and states that he was not missed any doses. We will obtain electrolytes, and plan for cardioversion. Potassium 4.7, magnesium 1.8, troponin undetectable, creatinine within normal limits. Patient underwent successful cardioversion with single 150 joule synchronized shock. Consulted of Cardiology, who recommended that patient stay on his current dosages of sotalol and metoprolol. Patient informed of results of cardioversion as well as cardiology recommendations. He states that he was an appointment in 2 days with his insurance inspector and we will mentioned this episode at his appointment. Critical Care Time Critical Care Time Critical Care Time: Yes Total Critical Care Time: 32 Attestation: Atrial fibrillation with rapid ventricular response requiring synchronized cardioversion and cardiology consultation. Discharge Plan Departure Patient Disposition: Home Clinical Impression: Atrial fibrillation with RVR Instructions: DI for Atrial Fibrillation Activity Restrictions/Additional Instructions: When you arrived in the ambulance you were in atrial fibrillation. We cardioverted you and your back to normal sinus rhythm. I spoke with Cardiology, and they recommend that you stay on your usual doses of all medications. Make sure that you follow up with Dr. Barrett on Tuesday as scheduled. Prescriptions: No Action cyproheptadine 4 mg tablet 4 mg PO BID-TID PRN (Reason: appetite) Qty: 60 1RF loperamide [Anti-Diarrheal (loperamide)] 2 mg tablet 2 mg PO QID PRN (Reason: loose stool) Qty: 30 0RF atorvastatin 80 mg tablet 80 mg PO DAILY Qty: 90 3RF nitroglycerin 0.3 mg tablet, sublingual 0.3 mg SL Q5-15M PRN (Reason: chest pain) Qty: 100 3RF (DME) Accu-Chek Kanika Plus test strp Strip See Dose Instructions .ROUTE .MEDSUPPLY Qty: 100 2RF Dose Instruction: As directed Rx Instructions: Use to check blood sugars twice daily (DME) blood glucose strip-disp meter Kit See Rx Instructions .ROUTE .MEDSUPPLY Qty: 1 0RF Rx Instructions: Accu Check- use to check blood sugars daily. Pradaxa 150 mg capsule 150 mg PO BID Qty: 180 1RF Rx Instructions: Take one cap by mouth twice daily. sotalol 160 mg tablet 160 mg PO Q12H Qty: 180 3RF Patient Comments: am/pm hydrochlorothiazide 25 mg tablet 25 mg PO DAILY Qty: 90 3RF Dificid 200 mg tablet 200 mg PO BID Qty: 16 0RF terazosin 5 mg capsule 5 mg PO DAILY Qty: 90 3RF metoprolol succinate 25 mg tablet extended release 24 hr See Rx Instructions .ROUTE .COMPLEX Qty: 30 11RF Dose Instruction: TAKE 1 TABLET BY MOUTH DAILY Rx Instructions: TAKE 1 TABLET BY MOUTH DAILY triamcinolone acetonide 0.1 % cream 1 applic TOP PRN PRN (Reason: Itching) furosemide 20 mg tablet 20 mg PO PRN PRN (Reason: edema) Referrals: Rex Anders MD [Primary Care Provider] - Stand Alone Forms: Patient Portal/API
[2023-11-22 04:48] LABS: Add Manual Diff / Slide Review NO; Basophils Absolute Auto 100 /uL (0-100); Basophils Percent Auto 0.7 % (0-2); Eosinophils Absolute Auto 100 /uL (0-450); Eosinophils Percent Auto 0.9 % (2-4); Hematocrit 31.1 % (41-53); Hemoglobin 10.3 g/dL (13.5-17.5); Lymphocytes Absolute Auto 1000 /uL (1100-4500); Lymphocytes Percent Auto 6.2 % (25-40); Mean Corpuscular Hemoglobin 31.1 PG (26-34); Mean Corpuscular Volume 94.3 fL (80-100); Monocytes Absolute Auto 400 /uL (0-900); Monocytes Percent Auto 2.8 % (3-14); Neutrophils Absolute Auto 13800 /uL (1500-7000); Neutrophils Percent Auto 89.4 % (50-75); Platelet Count 259 X10^3/uL (150-400); Red Cell Distribution Width 15.1 % (11.6-14.8); White Blood Cell Count 15.5 X10^3/uL (4.5-11.0)
[2023-11-22 04:50] LABS: INR 1.1 (0.9-1.3); Prothrombin Time 12.2 SECONDS (9.4-12.5)
[2023-11-22 04:53] LABS: PTT Partial Thromboplastin Tim 45 SECONDS (25.1-36.5)
[2023-11-22 04:55] LABS: Alanine Aminotransferase 18 IU/L (<50); Albumin 3.4 g/dL (3.5-5.0); Albumin Globulin Ratio 1.1 (1.0-2.8); Alkaline Phosphatase 62 U/L (38-126); Aspartate Aminotransferase 31 IU/L (17-59); BUN Creatinine Ratio 18.7 (6-22); Bilirubin Total 0.6 mg/dL (0.2-1.3); Blood Urea Nitrogen 20 mg/dL (9-20); Calcium 8.9 mg/dL (8.4-10.2); Carbon Dioxide 28 mmol/L (22-32); Chloride 104 mmol/L (98-107); Creatine Kinase 23 U/L (55-170); Estimated Glomerular Filt Rate > 60 mL/min (>60); Globulin 3.2 g/dL (1.7-4.1); Glucose 185 mg/dL (80-110); HEMOLYSIS 27 (0-50); Lipase 518 U/L (23-300); Magnesium 1.8 mg/dL (1.6-2.3); Potassium 4.7 mmol/L (3.4-5.1); Sodium 135 mmol/L (137-145); Total Protein 6.6 g/dL (6.3-8.2)
[2023-11-22] MEDS: propofoL 200 MG/20 ML VIAL 100 MG IV (05:05)
[2023-11-22 05:06] LABS: NT-proBNP (BNP-Adult 18+) 2750 pg/mL (<450); Troponin I < 0.012 ng/mL (0.01-0.034)
--- NOTE | 2023-11-22 05:12 | EKG_ITS ---
[facility] [place] [address] [address], [place] [address] Test Date: 2023-11-22 Pat Name: Redd Lucio Department: Room: Gender: Male Mail Agent: : 1950 Requested By: Order Number: [id number] Reading MD: Malcolm Carrillo MD Measurements Intervals [place] Rate: 68 P: 72 CA: 226 QRS: 21 QRSD: 114 T: 83 QT: 428 QTc: 455 Interpretive Statements Sinus rhythm with 1st degree AV block Nonspecific T wave abnormality Electronically Signed On 11-22-2023 7:24:32 PDT by Malcolm Carrillo MD
== END 2023-11-22 06:35 | disposition home or self-care (01) ==
PROVIDERS: Emergency Provider Emergency Medicine; Family Provider Student in an Organized Health Care Education/Training Program; PCP Family Medicine
DX: I48.20 Chronic atrial fibrillation, unspecified (principal); Z79.01 Long term (current) use of anticoagulants; I44.0 Atrioventricular block, first degree; Z79.899 Other long term (current) drug therapy; R07.9 Chest pain, unspecified
CPT/HCPCS: 71045; 80053; 82550; 83690; 83735; 83880; 84484; 85025; 85610; 85730; 92960; 93005; 93010; 99152; 99284; 99291; J2704

== ENCOUNTER → 2024-08-21 08:36 | Outpatient (CLI) | payer OTHER, SELFPAY ==
[2024-08-21 09:17] LABS: Hematocrit 34.7 % (41-53); Hemoglobin 11.6 g/dL (13.5-17.5); Mean Corpuscular HGB Conc 33.5 % (30-36); Mean Corpuscular Hemoglobin 32.7 PG (26-34); Mean Corpuscular Volume 97.7 fL (80-100); Platelet Count 187 X10^3/uL (150-400); Red Blood Cell Count 3.55 X10^6/uL (4.5-5.9); Red Cell Distribution Width 13.4 % (11.6-14.8); White Blood Cell Count 6.6 X10^3/uL (4.5-11.0)
[2024-08-21 10:17] LABS: BUN Creatinine Ratio 34.2 (6-22); Blood Urea Nitrogen 41 mg/dL (9-20); Calcium 9.6 mg/dL (8.4-10.2); Carbon Dioxide 24 mmol/L (22-32); Chloride 105 mmol/L (98-107); Cholesterol 119 mg/dL (140-199); Estimated Glomerular Filt Rate > 60 mL/min (>60); Glucose 92 mg/dL (70-99); HDL Cholesterol 51 mg/dL (40-60); HEMOLYSIS < 15 (0-50); LDL Cholesterol Calculated 30 mg/dL (<100); Potassium 4.7 mmol/L (3.4-5.1); Sodium 138 mmol/L (137-145); Triglycerides 189 mg/dL (35-150)
== END ==
LOC: LAB 08:37
PROVIDERS: PCP Family Medicine; Referring Provider Family Medicine; Visit Provider Family Medicine
DX: I48.0 Paroxysmal atrial fibrillation (principal); I25.10 Atherosclerotic heart disease of native coronary artery without angina pectoris; E78.5 Hyperlipidemia, unspecified; I12.9 Hypertensive chronic kidney disease with stage 1 through stage 4 chronic kidney disease, or unspecified chronic kidney disease; N18.31 Chronic kidney disease, stage 3a; E11.9 Type 2 diabetes mellitus without complications
CPT/HCPCS: 36415; 80048; 80061; 85027

== ENCOUNTER → 2024-09-26 11:10 | Outpatient (CLI) | payer OTHER, SELFPAY ==
--- NOTE | 2024-09-26 11:13 | DI.RAD.S_ITS ---
PROCEDURE: XR CHEST 2V INDICATIONS: purulent sputum cough; poss R up or mid consolidation TECHNIQUE: 2 views of the chest were acquired. COMPARISON: [facility], CR, XR CHEST 1V, 11/22/2023, 4:42. FINDINGS: Surgical changes and devices: Sternotomy wires and mediastinal clips are seen. A stable focus with the appearance of sutures can be seen posterior to the sternum. Lungs and pleura: Lungs are clear, yet hyperexpanded. No pleural effusions or pneumothorax. Mediastinum: Mediastinal contours are normal. Heart size is normal. Atherosclerotic calcification of the aortic arch is noted. Bones and chest wall: No suspicious bony abnormalities. Age-appropriate bony degenerative changes are seen. Soft tissues appear unremarkable. IMPRESSION: No focal infiltrates are seen. No acute cardiopulmonary abnormality is seen. Postoperative changes again seen. Dictated by: Efrem Lizarraga M.D. on 09/26/2024 at 10:27 Approved by: Efrem Lizarraga M.D. on 09/26/2024 at 10:28
== END ==
PROVIDERS: PCP Family Medicine; Referring Provider Student in an Organized Health Care Education/Training Program; Visit Provider Student in an Organized Health Care Education/Training Program
DX: R05.8 Other specified cough (principal); I70.0 Atherosclerosis of aorta
CPT/HCPCS: 71046

== ENCOUNTER 2024-11-19 14:10 | Emergency (ER) | payer OTHER, SELFPAY ==
[2024-11-19] VITALS (11 sets, daily range): BP systolic 158–179; BP diastolic 74–87; PULSE 62–71; RESP 13–28; TEMP 36.6; O2SAT 97–99; BMI 24.3
--- NOTE | 2024-11-19 14:20 | DI.RAD.S_ITS ---
PROCEDURE: XR CHEST 1V INDICATIONS: Chest Pain TECHNIQUE: One view of the chest was acquired. COMPARISON: [facility], CR, XR CHEST 2V, 09/26/2024, 11:08. [facility], CR, XR CHEST 1V, 11/22/2023, 4:42. FINDINGS: Surgical changes and devices: Sternotomy with stable disrupted 2nd and 4th clamshell hours. Prior CABG. Lungs and pleura: Lungs are clear. No pleural effusions or pneumothorax. Mediastinum: Mediastinal contours appear normal. Heart size is normal. Bones and chest wall: No suspicious bony lesions. Overlying soft tissues appear unremarkable. IMPRESSION: No acute cardiopulmonary abnormality is seen. Dictated by: Padilla Brennan M.D. on 11/19/2024 at 14:34 Approved by: Padilla Brennan M.D. on 11/19/2024 at 14:35
--- NOTE | 2024-11-19 14:20 | EKG_ITS ---
[facility] [place] [id number] [place] [id number] Test Date: 2024-11-19 Pat Name: Redd Lucio Department: Room: Gender: Male Patient Registration Manager: ROLAND : 1950 Requested By: Order Number: [id number] Reading MD: Trevor Yap Measurements Intervals [place] Rate: 66 P: 84 GA: 234 QRS: 14 QRSD: 116 T: 90 QT: 420 QTc: 440 Interpretive Statements Sinus rhythm with 1st degree AV block Nonspecific T wave abnormality Electronically Signed On 11-24-2024 7:35:08 PDT by Trevor Yap
--- NOTE | 2024-11-19 14:34 | ED.DIZZY ---
HPI - Dizziness General Chief Complaint: Dizziness Stated Complaint: Vertigo and dizziness Time Seen by Provider: 11/19/24 14:17 Source: patient and EMS Mode of arrival: EMS History of Present Illness HPI Narrative: 74-year-old history of CAD status post CABG 5 vessel in 1999 AFib on Pradaxa hypertension diabetes CKD presents with dizziness described as lightheadedness when he sits or stands out and when he stands up he feels like he is going to pass out. This happened prior to arrival here he was brought in via EMS. He denies any headache, blurred vision, weakness in the arms, legs, difficulty swallowing, speaking, or walking, cough, chest pain, shortness, breath. Other than what is stated 14 point review of system is negative. Related Data Home Medications ?Medication ?Instructions ?Recorded ?Confirmed furosemide 20 mg tablet 20 mg PO PRN PRN edema 10/14/23 11/19/24 ezetimibe 10 mg tablet 10 mg PO DAILY 11/19/24 11/19/24 losartan 100 mg tablet 100 mg PO DAILY 11/19/24 11/19/24 Previous Rx's ?Medication ?Instructions ?Recorded atorvastatin 80 mg tablet 80 mg PO DAILY #90 tabs 11/01/19 dabigatran etexilate 150 mg 150 mg PO BID #180 caps 02/07/20 capsule (Pradaxa) sotalol 160 mg tablet 160 mg PO Q12H #180 tabs 02/29/20 hydrochlorothiazide 25 mg tablet 25 mg PO DAILY #90 tabs 05/06/21 metoprolol succinate 25 mg See Rx Instructions .Route 11/21/23 tablet,extended release 24 hr .COMPLEX #30 tabs nitroglycerin 0.3 mg sublingual 0.3 mg sublingual Q5-15M PRN chest 02/23/24 tablet pain #100 tabs blood sugar diagnostic (Accu-Chek #100 ea 04/10/24 Guide test strips) ferrous sulfate 134 mg (27 mg 134 mg PO Q OTHER DAY #30 tabs 08/24/24 iron) tablet carbidopa 25 mg-levodopa 100 mg 1 tab PO TID #90 tabs 09/12/24 tablet benzonatate 100 mg capsule 100 mg PO TID PRN cough 10 days 10/09/24 #30 caps terazosin 10 mg capsule 10 mg PO DAILY #30 caps 10/16/24 albuterol sulfate 90 mcg/actuation 2 puff inhalation Q4-6H PRN 10/31/24 aerosol inhaler shortness of breath or wheezing #6.7 grams triamcinolone acetonide 0.1 % 1 applic topical PRN PRN Itching 10/31/24 topical cream #454 grams Allergies Allergy/AdvReac Type Severity Reaction Status Date / Time amoxicillin AdvReac Mild Diarrhea Verified 11/19/24 14:11 Review of Systems Review of Systems ROS Unobtainable: All systems reviewed & are unremarkable except as noted in HPI and below Patient History Medical History C. difficile diarrhea (08/2023) Psoriasis Dyspnea on exertion Colonic polyp Diverticulosis of colon (~11/24/11) Atrial flutter (~07/06/11) Memory impairment Hypertension (~2011) Coronary artery disease (~07/06/11) Atrial fibrillation (~2009) Surgical History Anesthesia S/P CABG x 5 (~1999) History of coronary artery stent placement (~2016) Family History Father Heart disease Mother Hypertension Heart disease Social History marital status: unmarried,living together household members: spouse occupational status: employed alcohol intake: current substance use type: does not use Smoking Status: Former smoker alcohol intake frequency: 0-2 drinks per day Exam Narrative Exam Narrative: GENERAL: [74] year old patient appears stated age. Well-developed patient, in mild distress. HEAD: Atraumatic. Normocephalic. EYES: Pupils equal round and reactive. Extraocular motions intact. No scleral icterus. No injection or drainage. ENT: Nose without bleeding, purulent drainage. Throat without erythema, tonsillar hypertrophy or exudate. Airway patent. NECK: Trachea midline. Non tender CARDIOVASCULAR: Regular rate and rhythm without murmurs, gallops, or rubs. RESPIRATORY: Clear to auscultation. Breath sounds equal bilaterally. No wheezes, rales, or rhonchi. GASTROINTESTINAL: Abdomen soft, non-tender, nondistended. EXTREMITIES: No edema or joint tenderness. BACK: Nontender without deformity or crepitance. No flank tenderness. NEURO: AOx3. GCS 15 neuro exam 5/5 upper and lower extremity ddszub-tp-lasv opposite zgta-kv-xnid rapid alternating movements negative pronator drift all intact SKIN: No rash or erythema of visible areas Initial Vital Signs Initial Vital Signs: Vital Signs Temperature 97.9 F 11/19/24 14:14 Pulse Rate 68 11/19/24 14:14 Respiratory Rate 17 11/19/24 14:14 Blood Pressure 175/84 H 11/19/24 14:14 Pulse Oximetry 99 11/19/24 14:14 Oxygen Delivery Method Room Air 11/19/24 14:14 Course Orders Ordered: ED Orders 11/19/24 14:15 Complete Blood Count AUTO DIFF Stat Comprehensive Metabolic Panel Stat Lipase Stat Magnesium Stat NT-proBNP (BNP-Adult 18+) Stat PTT Partial Thromboplastin Juan Stat Prothrombin Time INR Stat Troponin & CK Cardiac Panel Stat 11/19/24 14:20 XR chest 1V Stat EKG-12 Lead Stat Vital Signs Vital signs: Vital Signs - 8 hr 11/19/24 14:14 Temperature 97.9 F Pulse Rate 68 Respiratory Rate 17 Blood Pressure 175/84 H Pulse Oximetry 99 Oxygen Delivery Method Room Air MDM - Dizziness Lab Data 11/19/24 14:15 11/19/24 14:[address] scan - head: Radiologist's Impression: [place] [address] CT Scan Report Signed Patient: Redd Lucio MR#: [id number] : 1950 Acct:[id number] Age/Sex: 74 / M Date of Service: 11/19/24 Loc: ED Accession Number: [id number] Procedure: CT head/brain wo con Ordering Provider: Malcolm Bardales D.O. PROCEDURE: CT HEAD/BRAIN WO CON INDICATIONS: headache dizziness TECHNIQUE: Noncontrast 4.5 mm thick angled axial sections acquired from the foramen magnum to the vertex, with coronal and sagittal reformats. For radiation dose reduction, the following was used: automated exposure control, adjustment of mA and/or kV according to patient size. COMPARISON: None. FINDINGS: Image quality: Diagnostic. CSF spaces: Basal cisterns are patent. No extra-axial fluid collections. The ventricles are symmetric in size and shape. Brain: No intracranial bleeds or mass effect. There is cerebral volume loss, with resultant ventricular and sulcal prominence. There are periventricular and deep white matter chronic small vessel ischemic changes. There is intracranial internal carotid artery atherosclerosis. Skull and face: Calvarium and visualized facial bones appear intact, without suspicious lesions. Sinuses: Visualized sinuses and mastoids are clear. IMPRESSION: No acute intracranial pathology. [address] [address] [address] Scan Report Signed Patient: Redd Lucio MR#: [id number] : 1950 Acct:[id number] Age/Sex: 74 / M Date of Service: 11/19/24 Loc: ED Accession Number: [id number] Procedure: CT angio head and neck Ordering Provider: Malcolm Bardales D.O. PROCEDURE: CT ANGIO HEAD AND NECK INDICATIONS: headache dizziness TECHNIQUE: After the administration of intravenous contrast, 1 mm thick sections acquired from the aortic arch through the [place] of [place]. 3-dimensional rrigiic-zufswoxoa-ihkmlbsrmr (MIP) and/or volume rendering reformats were acquired of the central intracranial vasculature and neck separately. For radiation dose reduction, the following was used: automated exposure control, adjustment of mA and/or kV according to patient size. COMPARISON: None. FINDINGS: Image quality: Diagnostic. Cerebral CT Angiogram: Internal carotid arteries: No acute findings. Intracranial ICA are patent with no significant stenosis. No occlusion. No aneurysm. Anterior cerebral arteries: Unremarkable. No significant stenosis. No occlusion. No aneurysm. Middle cerebral arteries: Unremarkable. No significant stenosis. No occlusion. No aneurysm. Posterior cerebral arteries: Unremarkable. No significant stenosis. No occlusion. No aneurysm. Basilar artery: Unremarkable. No significant stenosis. No occlusion. No aneurysm. Vertebral arteries: Occluded in the V4 segment, with reconstitution just prior to the basilar artery. Dural venous sinuses: Unremarkable given phase of enhancement. Other: Arterial phase appearance of the brain parenchyma is unremarkable. Neck CT Angiogram: Internal carotid arteries: Unremarkable. No significant stenosis. No dissection or occlusion. Common carotid arteries: Unremarkable. No significant stenosis. No dissection or occlusion. External carotid arteries: Unremarkable. No occlusion. Vertebral arteries: Occlusion of the right vertebral artery at the V1 segment extending to the V4 segment. Aortic Arch and Mediastinum: Partially visualized aortic arch unremarkable without evidence of aneurysm. Origins of the great vessels unremarkable. Other: Arterial phase soft tissues of the neck and chest are unremarkable. 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 Findings discussed with Dr. Bardales at time of dictation. Any quantitative measurements of stenosis were performed using NASCET criteria. Dictated by: Padilla Brennan M.D. on 11/19/2024 at 15:24 Approved by: Padilla Brennan M.D. on 11/19/2024 at 15:26 MDM Narrative Medical decision making narrative: Vital signs, nurse triage note, medication list, previous ER visits, and all imaging studies reviewed. CTA head and neck showed age indeterminate occlusion of the right vertebral artery six-month V1 through V4 with reconstitution just prior to the basilar artery. Head CT showed no acute process. Chest x-ray showed no acute process. Hemoglobin 11.5 BUN 31 glucose 145 magnesium 1.5 BNP 2530. Troponin normal heart rate of [address] T wave change. Case discussed with Dr. Mireles [facility] neurology consult acute surgical intervention needed at this time for vertebral artery occlusion but medical management including aspirin and cholesterol medication and if already on aspirin to switch over to Plavix but he is on Pradaxa so will add only aspirin at this time and follow up with PCP appointment on Tuesday. Differential diagnosis CVA subdural TIA vertigo orthostatic. Discharge Plan Departure Patient Disposition: Home Clinical Impression: Occlusion of right vertebral artery Instructions: DI for Dizziness-Nonvertigo Activity Restrictions/Additional Instructions: Return with new or worsening symptoms. Take 81 mg aspirin daily until told otherwise. Follow up with PCP appointment on Tuesday. Prescriptions: No Action nitroglycerin 0.3 mg tablet, sublingual 0.3 mg SL Q5-15M PRN (Reason: chest pain) Qty: 100 3RF benzonatate 100 mg capsule 100 mg PO TID PRN (Reason: cough) 10 Days Qty: 30 1RF ferrous sulfate 134 mg (27 mg iron) tablet 134 mg PO Q OTHER DAY Qty: 30 2RF atorvastatin 80 mg tablet 80 mg PO DAILY Qty: 90 3RF Pradaxa 150 mg capsule 150 mg PO BID Qty: 180 1RF Rx Instructions: Take one cap by mouth twice daily. sotalol 160 mg tablet 160 mg PO Q12H Qty: 180 3RF Patient Comments: am/pm hydrochlorothiazide 25 mg tablet 25 mg PO DAILY Qty: 90 3RF metoprolol succinate 25 mg tablet extended release 24 hr See Rx Instructions .ROUTE .COMPLEX Qty: 30 11RF Dose Instruction: TAKE 1 TABLET BY MOUTH DAILY Rx Instructions: TAKE 1 TABLET BY MOUTH DAILY (DME) Accu-Chek Guide test strips Strip See Rx Instructions .Route Qty: 100 1RF Rx Instructions: As directed, to test glucose level once daily carbidopa-levodopa 25-100 mg tablet 1 tab PO TID Qty: 90 2RF terazosin 10 mg capsule 10 mg PO DAILY Qty: 30 3RF triamcinolone acetonide 0.1 % cream 1 applic TOP PRN PRN (Reason: Itching) Qty: 454 0RF albuterol sulfate 90 mcg/actuation HFA aerosol inhaler 2 puff inhalation Q4-6H PRN (Reason: shortness of breath or wheezing) Qty: 6.7 0RF furosemide 20 mg tablet 20 mg PO PRN PRN (Reason: edema) losartan 100 mg tablet 100 mg PO DAILY ezetimibe 10 mg tablet 10 mg PO DAILY Referrals: Rex Anders MD [Primary Care Provider, Family Practice] Stand Alone Forms: Patient Portal/API
--- NOTE | 2024-11-19 14:37 | DI.CT.S_ITS ---
PROCEDURE: CT ANGIO HEAD AND NECK INDICATIONS: headache dizziness TECHNIQUE: After the administration of intravenous contrast, 1 mm thick sections acquired from the aortic arch through the [place] of [place]. 3-dimensional hvdixmk-wzvybxqtg-yufxfpimmh (MIP) and/or volume rendering reformats were acquired of the central intracranial vasculature and neck separately. For radiation dose reduction, the following was used: automated exposure control, adjustment of mA and/or kV according to patient size. COMPARISON: None. FINDINGS: Image quality: Diagnostic. Cerebral CT Angiogram: Internal carotid arteries: No acute findings. Intracranial ICA are patent with no significant stenosis. No occlusion. No aneurysm. Anterior cerebral arteries: Unremarkable. No significant stenosis. No occlusion. No aneurysm. Middle cerebral arteries: Unremarkable. No significant stenosis. No occlusion. No aneurysm. Posterior cerebral arteries: Unremarkable. No significant stenosis. No occlusion. No aneurysm. Basilar artery: Unremarkable. No significant stenosis. No occlusion. No aneurysm. Vertebral arteries: Occluded in the V4 segment, with reconstitution just prior to the basilar artery. Dural venous sinuses: Unremarkable given phase of enhancement. Other: Arterial phase appearance of the brain parenchyma is unremarkable. Neck CT Angiogram: Internal carotid arteries: Unremarkable. No significant stenosis. No dissection or occlusion. Common carotid arteries: Unremarkable. No significant stenosis. No dissection or occlusion. External carotid arteries: Unremarkable. No occlusion. Vertebral arteries: Occlusion of the right vertebral artery at the V1 segment extending to the V4 segment. Aortic Arch and Mediastinum: Partially visualized aortic arch unremarkable without evidence of aneurysm. Origins of the great vessels unremarkable. Other: Arterial phase soft tissues of the neck and chest are unremarkable. 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 Findings discussed with Dr. Bardales at time of dictation. Any quantitative measurements of stenosis were performed using NASCET criteria. Dictated by: Padilla Brennan M.D. on 11/19/2024 at 15:24 Approved by: Padilla Brennan M.D. on 11/19/2024 at 15:26
--- NOTE | 2024-11-19 14:37 | DI.CT.S_ITS ---
PROCEDURE: CT HEAD/BRAIN WO CON INDICATIONS: headache dizziness TECHNIQUE: Noncontrast 4.5 mm thick angled axial sections acquired from the foramen magnum to the vertex, with coronal and sagittal reformats. For radiation dose reduction, the following was used: automated exposure control, adjustment of mA and/or kV according to patient size. COMPARISON: None. FINDINGS: Image quality: Diagnostic. CSF spaces: Basal cisterns are patent. No extra-axial fluid collections. The ventricles are symmetric in size and shape. Brain: No intracranial bleeds or mass effect. There is cerebral volume loss, with resultant ventricular and sulcal prominence. There are periventricular and deep white matter chronic small vessel ischemic changes. There is intracranial internal carotid artery atherosclerosis. Skull and face: Calvarium and visualized facial bones appear intact, without suspicious lesions. Sinuses: Visualized sinuses and mastoids are clear. IMPRESSION: No acute intracranial pathology. Dictated by: Padilla Brennan M.D. on 11/19/2024 at 15:23 Approved by: Padilla Brennan M.D. on 11/19/2024 at 15:24
[2024-11-19 14:39] LABS: INR 1.3 (0.9-1.3); Prothrombin Time 14.3 SECONDS (9.4-12.5)
[2024-11-19 14:41] LABS: PTT Partial Thromboplastin Tim 46 SECONDS (25.1-36.5)
[2024-11-19 14:43] LABS: Alanine Aminotransferase 15 IU/L (<50); Albumin 4.2 g/dL (3.5-5.0); Albumin Globulin Ratio 1.4 (1.0-2.8); Alkaline Phosphatase 64 U/L (38-126); Blood Urea Nitrogen 31 mg/dL (9-20); Calcium 9.9 mg/dL (8.4-10.2); Carbon Dioxide 28 mmol/L (22-32); Chloride 104 mmol/L (98-107); Creatine Kinase < 20 U/L (55-170); Estimated Glomerular Filt Rate > 60 mL/min (>60); Globulin 2.9 g/dL (1.7-4.1); Glucose 145 mg/dL (70-99); HEMOLYSIS 21 (0-50); Lipase 211 U/L (23-300); Magnesium 1.5 mg/dL (1.6-2.3); Potassium 4.4 mmol/L (3.4-5.1); Sodium 140 mmol/L (137-145); Total Protein 7.1 g/dL (6.3-8.2)
[2024-11-19 14:49] LABS: Add Manual Diff / Slide Review NO; Hematocrit 34.2 % (41-53); Hemoglobin 11.5 g/dL (13.5-17.5); Lymphocytes Absolute Auto 800 /uL (1100-4500); Mean Corpuscular HGB Conc 33.5 % (30-36); Mean Corpuscular Hemoglobin 33.2 PG (26-34); Mean Corpuscular Volume 98.9 fL (80-100); Platelet Count 187 X10^3/uL (150-400)
[2024-11-19 14:55] LABS: NT-proBNP (BNP-Adult 18+) 2530 pg/mL (<450); Troponin I < 0.012 ng/mL (0.01-0.034)
[2024-11-19] MEDS: MAGNESIUM OXIDE 400 MG TABLET 800 MG PO (16:29)
--- NOTE | 2024-11-19 16:30 | PC.NURSE ---
[facility] [place]: Consulted / Neuro Surgery. Consult completed with Dr. Bardales.
--- NOTE | 2024-11-19 16:30 | PC.NURSE ---
[facility] Note: Consult with / Neuro Surgery completed with Dr. Bardales.
== END 2024-11-19 16:45 | disposition home or self-care (01) ==
PROVIDERS: Emergency Provider Family Medicine; PCP Family Medicine
DX: I65.01 Occlusion and stenosis of right vertebral artery (principal); R51.9 Headache, unspecified; Z79.01 Long term (current) use of anticoagulants
CPT/HCPCS: 70450; 70496; 70498; 71045; 80053; 82550; 83690; 83735; 83880; 84484; 85025; 85610; 85730; 93005; 99284; Q9967

== ENCOUNTER 2024-11-25 19:21 | Emergency (ER) | payer OTHER, SELFPAY ==
[2024-11-25] VITALS (15 sets, daily range): BP systolic 91–129; BP diastolic 53–77; PULSE 61–116; RESP 15–24; TEMP 37.2; O2SAT 92–99; BMI 24.3
--- NOTE | 2024-11-25 19:39 | EKG_ITS ---
[facility] [address] [place] [address] Test Date: 2024-11-25 Pat Name: Redd Lucio Department: [facility] Room: Gender: Male Hotel Yardperson: Fritz ESTES RN : 1950 Requested By: Order Number: [id number] Reading MD: Malcolm Carrillo MD Measurements Intervals [place] Rate: 110 P: AL: QRS: 1 QRSD: 116 T: 96 QT: 348 QTc: 470 Interpretive Statements Atrial fibrillation with rapid ventricular response Minimal voltage criteria for LVH, may be normal variant ( [place] product ) Nonspecific ST and T wave abnormality Electronically Signed On 11-26-2024 7:48:59 PDT by Malcolm Carrillo MD
--- NOTE | 2024-11-25 19:39 | DI.RAD.S_ITS ---
PROCEDURE: XR CHEST 1V INDICATIONS: Chest Pain TECHNIQUE: One view of the chest was acquired. COMPARISON: [facility], CR, XR CHEST 1V, 11/19/2024, 14:14. FINDINGS: Surgical changes and devices: Median sternotomy wires and surgical clips are seen. Lungs and pleura: Lungs are clear. No pleural effusions or pneumothorax. Mediastinum: Mediastinal contours appear normal. Heart size is mildly enlarged. Bones and chest wall: No suspicious bony lesions. Overlying soft tissues appear unremarkable. IMPRESSION: No acute cardiopulmonary pathology. Dictated by: Konstantin Richards M.D. on 11/25/2024 at 20:00 Approved by: Konstantin Richards M.D. on 11/25/2024 at 20:00
--- NOTE | 2024-11-25 19:52 | ED_ITS ---
HPI - Arrhythmia/Palpitations General Chief Complaint: Arrhythmia/Palpitations Stated Complaint: AFIB Time Seen by Provider: 11/25/24 19:52 History of Present Illness HPI narrative: 74-year-old male with of parkinsonism, CKD, CAD status post remote CABG, atrial fibrillation for many years, takes Pradaxa and sotalol, no missed doses, had emergency department cardioversion last year for recurrence of Atrial Fib, had complaint of rapid irregular heartbeat sensation 2 hours ago, feels that he went back into atrial fibrillation. We would like to have cardioversion. Also states that he had neck blood clot diagnosed last week here, taking aspirin in addition to Pradaxa. Denies chest pain shortness of breath. Ice fevers or chills. Related Data Home Medications ?Medication ?Instructions ?Recorded ?Confirmed furosemide 20 mg tablet 20 mg PO PRN PRN edema 10/1311/21/24 ezetimibe 10 mg tablet 10 mg PO DAILY 11/19/2410/10 losartan 100 mg tablet 100 mg PO DAILY 11/19/2410/10 Previous Rx's ?Medication ?Instructions ?Recorded atorvastatin 80 mg tablet 80 mg PO DAILY #90 tabs 10/16 10/05 dabigatran etexilate 150 mg 150 mg PO BID #180 caps capsule (Pradaxa) sotalol 160 mg tablet 160 mg PO Q12H #180 tabs hydrochlorothiazide 25 mg tablet 25 mg PO DAILY #90 ta bs 05/06/21 metoprolol succinate 25 mg See Rx Instructions .Route 11/21/23 tablet,extended release 24 hr .COMPLEX #30 tabs blood sugar diagnostic (Accu-Chek #100 ea 04/10/24 Guide test strips) ferrous sulfate 134 mg (27 mg 134 mg PO Q OTHER DAY #3 0 tabs 08/24/24 iron) tablet carbidopa 25 mg-levodopa 100 mg 1 tab PO TID #90 tabs 09/12/24 tablet benzonatate 100 mg capsule 100 mg PO TID PRN cough 10 days 10/09/24 #30 caps terazosin 10 mg capsule 10 mg PO DAILY #30 caps 05/12 albuterol sulfate 90 mcg/actuation 2 puff inhalation Q 4-6H PRN 10/31/24 aerosol inhaler shortness of breath or wheez ing #6.7 grams triamcinolone acetonide 0.1 % 1 applic topical PRN PRN Itching 10/31/24 topical cream #454 grams hydroxyzine HCl 25 mg tablet 25 mg PO BEDTIME PRN itch ing #30 11/21/24 tabs nitroglycerin 0.3 mg sublingual 0.3 mg sublingual Q5-1 5M PRN chest 11/22/24 tablet pain #100 tabs Allergies Allergy/AdvReac Type Severity Reaction Status Date / Time amoxicillin AdvReac Mild Diarrhea Verified 11/25/24 19:32 Patient History Medical History C. difficile diarrhea (08/2023) Psoriasis Dyspnea on exertion Colonic polyp Diverticulosis of colon (~11/24/11) Atrial flutter (~07/06/11) Memory impairment Hypertension (~2011) Coronary artery disease (~07/06/11) Atrial fibrillation (~2009) Surgical History Anesthesia S/P CABG x 5 (~1999) History of coronary artery stent placement (~2016) Family History Father Heart disease Mother Hypertension Heart disease Social History marital status: unmarried,living together household members: spouse occupational status: employed alcohol intake: current substance use type: does not use alcohol intake frequency: 0-2 drinks per day Exam Narrative Exam Narrative: GENERAL: Well-developed patient, in mild distress. HEAD: Atraumatic. Normocephalic. EYES: Pupils equal round and reactive. Extraocular motions intact. No scleral icterus. No injection or drainage. ENT: Nose without bleeding, purulent drainage. Throat without erythema, tonsillar hypertrophy or exudate. Airway patent. NECK: Trachea midline. Non tender CARDIOVASCULAR: Fast rate irregularly irregular rhythm, without murmurs, gallops, or rubs. RESPIRATORY: Clear to auscultation. Breath sounds equal bilaterally. No wheezes, rales, or rhonchi. GASTROINTESTINAL: Abdomen soft, non-tender, nondistended. EXTREMITIES: No edema or joint tenderness. BACK: Nontender without deformity or crepitance. No flank tenderness. NEURO: AOx3. Motor functions grossly nonfocal. SKIN: No rash or erythema of visible areas Initial Vital Signs Initial Vital Signs: Vital Signs Temperature 98.9 F 11/25/24 19:32 Pulse Rate 113 H 11/25/24 19:32 Respiratory Rate 18 11/25/24 19:32 Blood Pressure 111/70 11/25/24 19:32 Pulse Oximetry 98 11/25/24 19:32 Oxygen Delivery Method Room Air 11/25/24 19:32 Procedures Cardioversion Time of Cardioversion: 20:57 Consent Signed: Yes Stability: Stable Number of attempts (shocks): 1 Joules used: 150 (Synchronized) Cardiac rhythm post-cardioversion: Sinus rhythm Additional Comments: See separate note for IV propofol sedation, tolerated well. Procedural Sedation Time of procedure: 20:56 Consent signed: Yes Time out performed: Yes Indication: cardioversion ASA Class: I Mallampati Airway Classification: Class II (History of CAD, diabetes, COPD/reactive airways) Preparation: cardiac technician applied, pulse oximeter, capnometry used, supplemental O2 applied, suction/airway equipment at bedside and IV secured IV Propofol dose (mg): 80 Patient Tolerated Procedure: Well Complications: none Additional Comments: Returned to preprocedure baseline mental status. Course Orders Ordered: ED Orders 11/25/24 19:39 XR chest 1V Stat EKG-12 Lead Stat 11/25/24 19:44 Complete Blood Count AUTO DIFF Stat Comprehensive Metabolic Panel Stat Lipase Stat Magnesium Stat NT-proBNP (BNP-Adult 18+) Stat PTT Partial Thromboplastin Juan Stat Prothrombin Time INR Stat Troponin & CK Cardiac Panel Stat 11/25/24 20:47 EKG-12 Lead Stat Discontinued Medications Aspirin (Aspirin 81 Mg Chew Tab) 324 mg PO NOW ONE Stop: 11/25/24 19:39 Last Admin: 11/25/24 19:51 Dose: Not Given Documented By: Propofol (Propofol 200 Mg/20 Ml Vial) 200 mg IV NOW ONE Stop: 11/25/24 20:13 Last Admin: 11/25/24 20:42 Dose: 80 mg Documented By: Vital Signs Vital signs: Vital Signs - 8 hr 11/25/24 19:32 11/25/24 19:45 11/25/24 19:47 Temperature 98.9 F Pulse Rate 113 H 98 H 107 H Respiratory Rate 18 18 15 Blood Pressure 111/70 Pulse Oximetry 98 97 97 Oxygen Delivery Method Room Air 11/25/24 19:47 11/25/24 20:00 11/25/24 20:30 Temperature Pulse Rate 109 H 115 H Respiratory Rate 21 21 Blood Pressure 108/73 99/58 L 112/61 Pulse Oximetry 97 97 Oxygen Delivery Method 11/25/24 20:38 11/25/24 20:40 11/25/24 20:43 Temperature Pulse Rate 105 H 116 H 105 H Respiratory Rate 18 17 20 Blood Pressure 121/72 129/77 125/70 Pulse Oximetry 98 98 98 Oxygen Delivery Method 11/25/24 20:45 11/25/24 20:45 11/25/24 20:47 Temperature Pulse Rate 65 63 Respiratory Rate 20 18 19 Blood Pressure 93/53 L 91/54 L Pulse Oximetry 92 94 Oxygen Delivery Method 11/25/24 20:51 11/25/24 20:52 11/25/24 21:00 Temperature Pulse Rate 65 65 63 Respiratory Rate 24 23 20 Blood Pressure 94/61 98/60 114/64 Pulse Oximetry 96 96 98 Oxygen Delivery Method Room Air Room Air 11/25/24 21:13 11/25/24 21:34 Temperature Pulse Rate 61 64 Respiratory Rate 18 16 Blood Pressure 116/67 120/66 Pulse Oximetry 99 99 Oxygen Delivery Method Room Air MDM - Arrhythmia/Palpitations Lab Data Attestation: I reviewed the patient's lab results. Lab results narrative: White blood cell count 6800, hemoglobin 12.2, platelets adequate. Glucose 129. BUN 32 with creatinine 1.05. Normal serum CO2, potassium, sodium. Liver functions unremarkable, lipase normal. Troponin 0.016. BNP 3740. 11/25/24 19:44 11/25/24 19:44 Labs: Lab Results 11/25/24 Range/Units 19:44 WBC 6.8 (4.5-11.0) X10^3/uL RBC 3.68 L (4.5-5.9) X10^6/uL Hgb 12.2 L (13.5-17.5) g/dL Hct 36.3 L (41-53) % MCV 98.4 (80-100) fL MCH 33.1 (26-34) PG MCHC 33.6 (30-36) % RDW 13.0 (11.6-14.8) % Plt Count 198 (150-400) X10^3/uL Neut % (Auto) 69.8 (50-75) % Lymph % (Auto) 15.7 L (25-40) % [place] % (Auto) 9.2 (3-14) % Eos % (Auto) 4.5 H (2-4) % Baso % (Auto) 0.8 (0-2) % Neut # (Auto) 4700 (9997-4935) /uL Lymph # (Auto) 1100 (4124-3717) /uL [place] # (Auto) 600 (0-900) /uL Eos # (Auto) 300 (0-450) /uL Baso # (Auto) 100 (0-100) /uL PT 14.1 H (9.4-12.5) SECONDS INR 1.2 (0.9-1.3) APTT 54 H (25.1-36.5) SECONDS Sodium 140 (137-145) mmol/L Potassium 4.1 (3.4-5.1) mmol/L Chloride 103 (98-107) mmol/L Carbon Dioxide 26 (22-32) mmol/L BUN 32 H (9-20) mg/dL Creatinine 1.05 (0.66-1.25) mg/dL Estimated GFR > 60 (>60) mL/min BUN/Creatinine Ratio 30.5 H (6-22) Glucose 129 H (70-99) mg/dL Calcium 10.2 (8.4-10.2) mg/dL Magnesium 1.9 (1.6-2.3) mg/dL Total Bilirubin 0.5 (0.2-1.3) mg/dL AST 36 (17-59) IU/L ALT 7 (<50) IU/L Alkaline Phosphatase 63 (38-126) U/L Total Creatine Kinase 25 L (55-170) U/L Troponin I 0.016 (0.01-0.034) ng/mL NT-Pro-B Natriuret Pep 3740 H (<450) pg/mL Total Protein 7.6 (6.3-8.2) g/dL Albumin 4.4 (3.5-5.0) g/dL Globulin 3.2 (1.7-4.1) g/dL Albumin/Globulin Ratio 1.4 (1.0-2.8) Lipase 288 (23-300) U/L Imaging Data Chest x-ray: Radiologist's Impresson: [facility] [address] [place] [id number] XRay Report Signed Patient: Redd Lucio MR#: [id number] : 1950 Acct:[id number] Age/Sex: 74 / M Date of Service: 11/25/24 Loc: ED Accession Number: [id number] Procedure: XR chest 1V Ordering Provider: Kurtis Laura MD PROCEDURE: XR CHEST 1V INDICATIONS: Chest Pain TECHNIQUE: One view of the chest was acquired. COMPARISON: [facility], CR, XR CHEST 1V, 11/19/2024, 14:14. FINDINGS: Surgical changes and devices: Median sternotomy wires and surgical clips are seen. Lungs and pleura: Lungs are clear. No pleural effusions or pneumothorax. Mediastinum: Mediastinal contours appear normal. Heart size is mildly enlarged. Bones and chest wall: No suspicious bony lesions. Overlying soft tissues appear unremarkable. IMPRESSION: No acute cardiopulmonary pathology. Dictated by: Konstantin Richards M.D. on 11/25/2024 at 20:00 Approved by: Konstantin Richards M.D. on 11/25/2024 at 20:00 ECG Data Attestation: I personally reviewed and interpreted this ECG as follows: Interpretation: 1940, atrial fibrillation with rapid ventricular response, rate 110 on this study. Nonspecific ST-T changes. QRS 116, QTC 470. 2049, normal sinus rhythm with first-degree AV block, nonspecific intraventricular conduction delay, no obvious ST segment elevation. OK 232, QRS 120, QTC 456. MDM Narrative Medical decision making narrative: 74-year-old male with history of atrial fibrillation, takes Pradaxa, last week had dizziness, age-indeterminate vertebral artery lesion on CTA study of unclear significance, was discharged on the addition of aspirin to his Pradaxa, taking same anticoagulation regimen, with atrial fibrillation irregular heartbeat sensation in the last couple of hours. No chest pain or shortness of breath. No dizziness or weakness. He is requesting cardioversion, as was done last year. He has not missed any recent doses of Pradaxa/aspirin. Lab data: White blood cell count 6800, hemoglobin 12.2, platelets adequate. Glucose 129. BUN 32 with creatinine 1.05. Normal serum CO2, potassium, sodium. Liver functions unremarkable, lipase normal. Troponin 0.016. BNP 3740. 2009, case discussed with cardiology Dr. Stanley who feels patient can proceed with cardioversion, aware patient has age indeterminate recent vertebral artery lesion, taking his regular Pradaxa with the addition of aspirin since that diagnosis on 11/19/2024. Tolerated cardioversion well after IV propofol bolus, normal sinus rhythm on monitor, returned to preprocedure baseline mental status. Drove self, was aware he would need alternate transport home, does not drive, when he is able to ambulate safely they will take a cab home. Further observe. Postprocedure EKG shows normal sinus rhythm. Patient improved in mental status returned to baseline, was able to ambulate in the department, does not drive at night, cab ride home for tonight, home observation by , return tomorrow to pickup their vehicle during regular hours remote from his sedation event. Advised to continue with same chronic medications. Follow up advised with his corporate giving manager, call office tomorrow morning during regular hours office of Dr. Barrett. Home with family. Return precautions discussed. Stable/improved. Discharge Plan Departure Patient Disposition: Home Clinical Impression: Atrial fibrillation, History of cardioversion Activity Restrictions/Additional Instructions: History of atrial fibrillation for which you are taking blood thinner Pradaxa, and more recently aspirin for a vertebral artery lesion found on CT angiogram study recent weeks. You had atrial fibrillation with mildly increased rate for 2 hours duration symptoms, requesting cardioversion again, which was performed successfully last year. Case briefly discussed with on-call cardiology Dr. Stanley regarding the recent CT angiogram finding of vertebral artery lesion, taking aspirin in addition to Pradaxa, not considered to be a contraindication to cardioversion tonight. You had consent for cardioversion, IV propofol again given, synchronized cardioversion 1 shock delivered, with normal sinus rhythm on EKG and monitor. You were observed for awhile and able to walk around the department. We would like you did not drive tonight, and your at bedside can not drive at night, transported by taxi home, with attending to tonight. Retrieve your vehicle tomorrow when more alert and awake. Follow up with your regular primary care provider and your corporate giving manager as scheduled. Call the office of your corporate giving manager tomorrow morning to let them know of your most recent cardioversion. Take your chronic medications as directed. Return earlier to this/nearest emergency department for any change worsening symptoms or any concerns prior. Prescriptions: No Action benzonatate 100 mg capsule 100 mg PO TID PRN (Reason: cough) 10 Days Qty: 30 1RF ferrous sulfate 134 mg (27 mg iron) tablet 134 mg PO Q OTHER DAY Qty: 30 2RF atorvastatin 80 mg tablet 80 mg PO DAILY Qty: 90 3RF Pradaxa 150 mg capsule 150 mg PO BID Qty: 180 1RF Rx Instructions: Take one cap by mouth twice daily. sotalol 160 mg tablet 160 mg PO Q12H Qty: 180 3RF Patient Comments: am/pm hydrochlorothiazide 25 mg tablet 25 mg PO DAILY Qty: 90 3RF metoprolol succinate 25 mg tablet extended release 24 hr See Rx Instructions .ROUTE .COMPLEX Qty: 30 11RF Dose Instruction: TAKE 1 TABLET BY MOUTH DAILY Rx Instructions: TAKE 1 TABLET BY MOUTH DAILY (DME) Accu-Chek Guide test strips Strip See Rx Instructions .Route Qty: 100 1RF Rx Instructions: As directed, to test glucose level once daily carbidopa-levodopa 25-100 mg tablet 1 tab PO TID Qty: 90 2RF terazosin 10 mg capsule 10 mg PO DAILY Qty: 30 3RF triamcinolone acetonide 0.1 % cream 1 applic TOP PRN PRN (Reason: Itching) Qty: 454 0RF albuterol sulfate 90 mcg/actuation HFA aerosol inhaler 2 puff inhalation Q4-6H PRN (Reason: shortness of breath or wheezing) Qty: 6.7 0RF hydroxyzine HCl 25 mg tablet 25 mg PO BEDTIME PRN (Reason: itching) Qty: 30 1RF nitroglycerin 0.3 mg tablet, sublingual 0.3 mg SL Q5-15M PRN (Reason: chest pain) Qty: 100 3RF furosemide 20 mg tablet 20 mg PO PRN PRN (Reason: edema) losartan 100 mg tablet 100 mg PO DAILY ezetimibe 10 mg tablet 10 mg PO DAILY Referrals: Rex Anders MD [Primary Care Provider, Family Practice] Mahogany Barrett MD [Physician, Cardiology] Stand Alone Forms: Patient Portal/API
[2024-11-25 19:53] LABS: Add Manual Diff / Slide Review NO; Hematocrit 36.3 % (41-53); Hemoglobin 12.2 g/dL (13.5-17.5); Lymphocytes Absolute Auto 1100 /uL (1100-4500); Mean Corpuscular HGB Conc 33.6 % (30-36); Mean Corpuscular Hemoglobin 33.1 PG (26-34); Mean Corpuscular Volume 98.4 fL (80-100); Platelet Count 198 X10^3/uL (150-400)
[2024-11-25 19:59] LABS: INR 1.2 (0.9-1.3); Prothrombin Time 14.1 SECONDS (9.4-12.5)
[2024-11-25 20:01] LABS: PTT Partial Thromboplastin Tim 54 SECONDS (25.1-36.5)
[2024-11-25 20:03] LABS: Alanine Aminotransferase 7 IU/L (<50); Albumin 4.4 g/dL (3.5-5.0); Albumin Globulin Ratio 1.4 (1.0-2.8); Alkaline Phosphatase 63 U/L (38-126); Blood Urea Nitrogen 32 mg/dL (9-20); Calcium 10.2 mg/dL (8.4-10.2); Carbon Dioxide 26 mmol/L (22-32); Chloride 103 mmol/L (98-107); Creatine Kinase 25 U/L (55-170); Estimated Glomerular Filt Rate > 60 mL/min (>60); Globulin 3.2 g/dL (1.7-4.1); Glucose 129 mg/dL (70-99); HEMOLYSIS < 15 (0-50); Lipase 288 U/L (23-300); Magnesium 1.9 mg/dL (1.6-2.3); Potassium 4.1 mmol/L (3.4-5.1); Sodium 140 mmol/L (137-145); Total Protein 7.6 g/dL (6.3-8.2)
[2024-11-25 20:15] LABS: NT-proBNP (BNP-Adult 18+) 3740 pg/mL (<450); Troponin I 0.016 ng/mL (0.01-0.034)
--- NOTE | 2024-11-25 20:47 | EKG_ITS ---
[place] [address] [place] [id number] Test Date: 2024-11-25 Pat Name: Redd Lucio Department: [facility] Room: Gender: Male Cloth Drier: MATT FRANCO : 1950 Requested By: Order Number: [id number] Reading MD: Malcolm Carrillo MD Measurements Intervals [place] Rate: 63 P: 92 MN: 232 QRS: 9 QRSD: 120 T: 73 QT: 446 QTc: 456 Interpretive Statements Sinus rhythm with 1st degree AV block Nonspecific intraventricular conduction delay Nonspecific T wave abnormality Electronically Signed On 11-26-2024 7:49:02 PDT by Malcolm Carrillo MD
--- NOTE | 2024-11-25 21:30 | PC.NURSE ---
Post Cardioversion: Patient A&O x4 post cardioversion, in NSR on bedside telemetry and SR confirmed by ECG. Patient denies any chest discomfort, SOB, or nausea. Blood pressure back to baseline and patient requesting to ambulate in room. Patient ambulated in room without difficulty, denies any lightheadedness/dizziness, steady gait noted by this RN. Patient tolerated oral fluids without any nausea. Patient requesting to go home if possible. Plan is to call a taxi to get patient and his spouse back home safely since his spouse does not drive and patient has been under sedation for cardioversion. Patient and spouse agreeable to taxi ride home prior to procedural sedation. [employer] called and state they are available to take patient and spouse to their home in [place] at [phone]. Taxi Voucher provided to patient to cover taxi cost to get home safely.
== END 2024-11-25 21:45 | disposition home or self-care (01) ==
PROVIDERS: Emergency Provider Emergency Medicine; PCP Family Medicine
DX: I48.91 Unspecified atrial fibrillation (principal); I44.0 Atrioventricular block, first degree; Z79.01 Long term (current) use of anticoagulants; I25.10 Atherosclerotic heart disease of native coronary artery without angina pectoris; Z95.1 Presence of aortocoronary bypass graft
CPT/HCPCS: 36415; 71045; 80053; 82550; 83690; 83735; 83880; 84484; 85025; 85610; 85730; 92960; 93005; 99152; 99153; 99285; J2704

== ENCOUNTER 2024-12-31 14:22 | Emergency (ER) | payer OTHER, SELFPAY ==
[2024-12-31] VITALS (9 sets, daily range): BP systolic 138–153; BP diastolic 81–94; PULSE 83–140; RESP 11–20; TEMP 36.9; O2SAT 98–99; BMI 25.0
--- NOTE | 2024-12-31 15:08 | EKG_ITS ---
[facility] [address], [place] [address] Test Date: 2024-12-31 Pat Name: Redd Lucio Department: [facility] Room: Gender: Male Certified Procedural Coder: : 1950 Requested By: Order Number: [id number] Reading MD: Malcolm Carrillo MD Measurements Intervals [place] Rate: 90 P: [place]: QRS: -1 QRSD: 116 T: 87 QT: 364 QTc: 445 Interpretive Statements Atrial fibrillation Minimal voltage criteria for LVH, may be normal variant ( [place] product ) Anterior infarct , age undetermined Electronically Signed On 12-31-2024 17:31:57 PDT by Malcolm Carrillo MD
--- NOTE | 2024-12-31 15:08 | DI.RAD.S_ITS ---
PROCEDURE: XR CHEST 1V INDICATIONS: Chest Pain TECHNIQUE: One view of the chest was acquired. COMPARISON: [facility], CR, XR CHEST 1V, 11/25/2024, 19:40. FINDINGS: Surgical changes and devices: Median sternotomy wires. CABG changes. Lungs and pleura: Lungs are clear. No pleural effusions or pneumothorax. Mediastinum: Borderline cardiomegaly. Normal mediastinal contour without central vascular congestion. Probable small hiatal hernia. Bones and chest wall: No suspicious bony lesions. Overlying soft tissues appear unremarkable. IMPRESSION: No acute cardiopulmonary abnormality is seen. Stable mild cardiomegaly and prior CABG. Dictated by: Stella Martin M.D. on 12/31/2024 at 15:48 Approved by: Stella Martin M.D. on 12/31/2024 at 15:49
[2024-12-31 16:15] LABS: Add Manual Diff / Slide Review NO; Hematocrit 35.1 % (41-53); Hemoglobin 11.9 g/dL (13.5-17.5); Lymphocytes Absolute Auto 700 /uL (1100-4500); Mean Corpuscular HGB Conc 33.9 % (30-36); Mean Corpuscular Hemoglobin 32.7 PG (26-34); Mean Corpuscular Volume 96.5 fL (80-100); Platelet Count 180 X10^3/uL (150-400)
[2024-12-31 16:25] LABS: INR 1.2 (0.9-1.3); Prothrombin Time 13.2 SECONDS (9.4-12.5)
[2024-12-31 16:28] LABS: PTT Partial Thromboplastin Tim 48 SECONDS (25.1-36.5)
[2024-12-31 16:29] LABS: Alanine Aminotransferase 18 IU/L (<50); Albumin 4.2 g/dL (3.5-5.0); Albumin Globulin Ratio 1.3 (1.0-2.8); Alkaline Phosphatase 75 U/L (38-126); Blood Urea Nitrogen 27 mg/dL (9-20); Calcium 9.5 mg/dL (8.4-10.2); Carbon Dioxide 26 mmol/L (22-32); Chloride 106 mmol/L (98-107); Creatine Kinase < 20 U/L (55-170); Estimated Glomerular Filt Rate > 60 mL/min (>60); Globulin 3.2 g/dL (1.7-4.1); Glucose 150 mg/dL (70-99); HEMOLYSIS < 15 (0-50); Lipase 224 U/L (23-300); Magnesium 1.8 mg/dL (1.6-2.3); Potassium 4.3 mmol/L (3.4-5.1); Sodium 138 mmol/L (137-145); Total Protein 7.4 g/dL (6.3-8.2)
[2024-12-31 16:41] LABS: NT-proBNP (BNP-Adult 18+) 2670 pg/mL (<450); Troponin I < 0.012 ng/mL (0.01-0.034)
--- NOTE | 2024-12-31 16:41 | ED_ITS ---
HPI - Arrhythmia/Palpitations General Chief Complaint: Arrhythmia/Palpitations Stated Complaint: afib episode Time Seen by Provider: 12/31/24 16:27 Source: patient Mode of arrival: Ambulatory History of Present Illness HPI narrative: Patient is a 74-year-old male with a past medical history of AFib on Pradaxa, hypertension hyperlipidemia, diabetes, comes into the ED from home for evaluation of palpitations. He states that he felt like his heart was racing but denies any actual chest pain shortness of breath he follows with Dr. Barrett of Cardiology. States that he saw him for his routine checkup several months ago. Patient at time of my evaluation stating that he is feeling better. Has been compliant with all his medication. He denies any other symptoms at this time. Related Data Previous Rx's ?Medication ?Instructions ?Recorded blood sugar diagnostic (Accu-Chek #100 ea 04/10/24 Guide test strips) carbidopa 25 mg-levodopa 100 mg 1 tab PO TID #90 tabs 09/12/24 tablet benzonatate 100 mg capsule 100 mg PO TID PRN cough 10 days 10/09/24 #30 caps terazosin 10 mg capsule 10 mg PO DAILY #30 caps 05/12 triamcinolone acetonide 0.1 % 1 applic topical PRN PRN Itching 10/31/24 topical cream #454 grams hydroxyzine HCl 25 mg tablet 25 mg PO BEDTIME PRN itch ing #30 11/21/24 tabs nitroglycerin 0.3 mg sublingual 0.3 mg sublingual Q5-1 5M PRN chest 11/22/24 tablet pain #100 tabs atorvastatin 80 mg tablet 80 mg PO DAILY #90 tabs 11/17 09/09 dabigatran etexilate 150 mg 150 mg PO BID #180 caps capsule (Pradaxa) ezetimibe 10 mg tablet 10 mg PO DAILY #30 tabs 11/17 09/09 hydrochlorothiazide 25 mg tablet 25 mg PO DAILY #90 ta bs 12/10/24 losartan 100 mg tablet 100 mg PO DAILY #30 tabs metoprolol succinate 25 mg See Rx Instructions .Route 12/10/24 tablet,extended release 24 hr .COMPLEX #30 tabs albuterol sulfate 90 mcg/actuation 2 puff inhalation Q 4-6H PRN 12/11/24 aerosol inhaler shortness of breath or wheez ing #6.7 grams sotalol 160 mg tablet 160 mg PO Q12H #180 tabs furosemide 20 mg tablet 20 mg PO DAILY PRN edema #30 tabs 12/18/24 ferrous sulfate 134 mg (27 mg 134 mg PO Q OTHER DAY #3 0 tabs 12/25/24 iron) tablet Allergies Allergy/AdvReac Type Severity Reaction Status Date / Time amoxicillin AdvReac Mild Diarrhea Verified 11/25/24 19:32 Review of Systems Review of Systems Narrative: General: Denies fever, chills, weight loss HEENT: Denies headache, eye drainage, eye irritation, head trauma, sore throat, voice change Cardiovascular: Positive palpitations Denies any chest pain, tachycardia Respiratory: Denies any shortness of breath, cough, wheeze, stridor GI/: Denies any abdominal pain, nausea, vomiting, diarrhea, bright red blood per rectum, melanotic stools, urinary frequency, urinary retention, dysuria, hematuria MSK: Denies any joint pain, muscle pains, swelling Skin: Denies any rashes, lesions, discoloration Neuro: Denies any headache, lightheadedness, dizziness, fainting, weakness Psych: Denies SI/HI Patient History Medical History C. difficile diarrhea (08/2023) Psoriasis Dyspnea on exertion Colonic polyp Diverticulosis of colon (~11/24/11) Atrial flutter (~07/06/11) Memory impairment Hypertension (~2011) Coronary artery disease (~07/06/11) Atrial fibrillation (~2009) Surgical History Anesthesia S/P CABG x 5 (~1999) History of coronary artery stent placement (~2016) Family History Father Heart disease Mother Hypertension Heart disease Social History marital status: unmarried,living together household members: spouse occupational status: employed alcohol intake: current substance use type: does not use alcohol intake frequency: 0-2 drinks per day Exam Narrative Exam Narrative: General: Cooperative, well-developed, not in acute distress HEENT: Normocephalic, atraumatic, PERRLA, normal sclera, eyelids normal Neck: Active full range of motion, atraumatic Chest: Normal to inspection, negative crepitus, no overlying erythema ecchymosis Respiratory: Normal respiratory effort, not in acute respiratory distress, clear to auscultation bilaterally negative cough, wheeze, tachypnea, rhonchi, rales Cardiology: Regular rate rhythm negative gallop, murmur, rubs GI/: No tenderness to palpation, soft, non rigid, normal to inspection, exam deferred MSK: Full active range of motion in all 4 extremities, atraumatic, no tenderness to palpation of any bony prominences Skin: No rashes or lesions noted Neuro: Alert awake oriented x3, moves all 4 extremities spontaneously, cranial nerves intact, able to answer all questions appropriately follows commands appropriately Psych: Cooperative, negative suicidal or homicidal ideations Initial Vital Signs Initial Vital Signs: Vital Signs Temperature 98.5 F 12/31/24 15:02 Pulse Rate 84 12/31/24 15:02 Respiratory Rate 17 12/31/24 15:02 Blood Pressure 143/81 H 12/31/24 15:02 Pulse Oximetry 99 12/31/24 15:02 Oxygen Delivery Method Room Air 12/31/24 15:02 Course Orders Ordered: ED Orders 12/31/24 15:08 XR chest 1V Stat EKG-12 Lead Stat 12/31/24 16:08 Complete Blood Count AUTO DIFF Stat Comprehensive Metabolic Panel Stat Lipase Stat Magnesium Stat NT-proBNP (BNP-Adult 18+) Stat PTT Partial Thromboplastin Juan Stat Prothrombin Time INR Stat Troponin & CK Cardiac Panel Stat Discontinued Medications Aspirin (Aspirin 81 Mg Chew Tab) 324 mg PO NOW ONE Stop: 12/31/24 15:09 Last Admin: 12/31/24 16:19 Dose: Not Given Documented By: LILO Diltiazem HCl (Diltiazem 25 Mg/5 Ml Sdv) 15 mg IV NOW ONE Stop: 12/31/24 16:28 Last Admin: 12/31/24 16:31 Dose: 15 mg Documented By: LILO Diltiazem HCl (Diltiazem 30 Mg Tablet) 30 mg PO NOW ONE Stop: 12/31/24 16:42 Last Admin: 12/31/24 16:49 Dose: 30 mg Documented By: LILO Vital Signs Vital signs: Vital Signs - 8 hr 12/31/24 15:02 12/31/24 16:31 12/31/24 16:49 Temperature 98.5 F Pulse Rate 84 140 H 83 Respiratory Rate 17 Blood Pressure 143/81 H 152/90 H 146/88 H Pulse Oximetry 99 Oxygen Delivery Method Room Air MDM - Arrhythmia/Palpitations Lab Data 12/31/24 16:08 12/31/24 16:08 Labs: Lab Results 12/31/24 Range/Units 16:08 WBC 6.3 (4.5-11.0) X10^3/uL RBC 3.64 L (4.5-5.9) X10^6/uL Hgb 11.9 L (13.5-17.5) g/dL Hct 35.1 L (41-53) % MCV 96.5 (80-100) fL MCH 32.7 (26-34) PG MCHC 33.9 (30-36) % RDW 12.9 (11.6-14.8) % Plt Count 180 (150-400) X10^3/uL Neut % (Auto) 76.3 H (50-75) % Lymph % (Auto) 10.6 L (25-40) % [place] % (Auto) 10.0 (3-14) % Eos % (Auto) 2.4 (2-4) % Baso % (Auto) 0.7 (0-2) % Neut # (Auto) 4800 (6493-1618) /uL Lymph # (Auto) 700 L (9005-8066) /uL [place] # (Auto) 600 (0-900) /uL Eos # (Auto) 100 (0-450) /uL Baso # (Auto) 0 (0-100) /uL PT 13.2 H (9.4-12.5) SECONDS INR 1.2 (0.9-1.3) APTT 48 H (25.1-36.5) SECONDS Sodium 138 (137-145) mmol/L Potassium 4.3 (3.4-5.1) mmol/L Chloride 106 (98-107) mmol/L Carbon Dioxide 26 (22-32) mmol/L BUN 27 H (9-20) mg/dL Creatinine 0.94 (0.66-1.25) mg/dL Estimated GFR > 60 (>60) mL/min BUN/Creatinine Ratio 28.7 H (6-22) Glucose 150 H (70-99) mg/dL Calcium 9.5 (8.4-10.2) mg/dL Magnesium 1.8 (1.6-2.3) mg/dL Total Bilirubin 0.9 (0.2-1.3) mg/dL AST 28 (17-59) IU/L ALT 18 (<50) IU/L Alkaline Phosphatase 75 (38-126) U/L Total Creatine Kinase < 20 L (55-170) U/L Troponin I < 0.012 (0.01-0.034) ng/mL NT-Pro-B Natriuret Pep 2670 H (<450) pg/mL Total Protein 7.4 (6.3-8.2) g/dL Albumin 4.2 (3.5-5.0) g/dL Globulin 3.2 (1.7-4.1) g/dL Albumin/Globulin Ratio 1.3 (1.0-2.8) Lipase 224 (23-300) U/L ECG Data Interpretation: EKG interpreted by ED physician atrial fibrillation 90 beats per minute QTC 445, normal axis, no STEMI MDM Narrative Medical decision making narrative: Patient is a 74-year-old male with a history of diabetes hyperlipidemia hypertension, paroxysmal AFib on Pradaxa and metoprolol presents to the emergency department for palpitations. States it started several hours ago, at time of initial evaluation patient feeling better. He does appear rate controlled on the initial EKG at 90. He denies any other symptoms. Lab work without any acute findings no leukocytosis Chem panel unremarkable troponin negative. Chest x-ray without any acute cardiopulmonary abnormality, however while patient was monitored here he did flip into AFib in the 120s, patient received 15 mg Cardizem with improvement to his rate, he was given 30 mg p.o.. 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, strict return precautions given he verbalized understanding of this and agrees to being discharged home with outpatient follow up Discharge Plan Departure Patient Disposition: Home Clinical Impression: A-fib Instructions: DI for Atrial Fibrillation Activity Restrictions/Additional Instructions: Please continue taking your medications as prescribed Please contact your automotive refinish technician and your primary care doctor for continued evaluation treatment of your symptoms Please read the discharge instructions sheet carefully and bring all papers to all doctor follow-up visits, as it may contain information that your doctor may want to see. Disease processes change and evolve, if your symptoms worsen or if you develop any new symptoms that are concerning to you please return for evaluation. Your evaluation today does not show any evidence of any life- threatening/serious illnesses requiring admission to the hospital or surgery. Please follow-up with your doctor for re-evaluation in approximately 1 day. Seek immediate medical attention for any worrisome symptoms. *If you do not have a primary care provider please contact the [facility] Resource line at [phone]. They will ask some questions about your medical history and help get you set up with a doctor in the community. Prescriptions: No Action benzonatate 100 mg capsule 100 mg PO TID PRN (Reason: cough) 10 Days Qty: 30 1RF (DME) Accu-Chek Guide test strips Strip See Rx Instructions .Route Qty: 100 1RF Rx Instructions: As directed, to test glucose level once daily carbidopa-levodopa 25-100 mg tablet 1 tab PO TID Qty: 90 2RF terazosin 10 mg capsule 10 mg PO DAILY Qty: 30 3RF triamcinolone acetonide 0.1 % cream 1 applic TOP PRN PRN (Reason: Itching) Qty: 454 0RF hydroxyzine HCl 25 mg tablet 25 mg PO BEDTIME PRN (Reason: itching) Qty: 30 1RF nitroglycerin 0.3 mg tablet, sublingual 0.3 mg SL Q5-15M PRN (Reason: chest pain) Qty: 100 3RF atorvastatin 80 mg tablet 80 mg PO DAILY Qty: 90 3RF Pradaxa 150 mg capsule 150 mg PO BID Qty: 180 1RF Rx Instructions: Take one cap by mouth twice daily. ezetimibe 10 mg tablet 10 mg PO DAILY Qty: 30 0RF hydrochlorothiazide 25 mg tablet 25 mg PO DAILY Qty: 90 3RF losartan 100 mg tablet 100 mg PO DAILY Qty: 30 0RF metoprolol succinate 25 mg tablet extended release 24 hr See Rx Instructions .ROUTE .COMPLEX Qty: 30 11RF Dose Instruction: TAKE 1 TABLET BY MOUTH DAILY Rx Instructions: TAKE 1 TABLET BY MOUTH DAILY albuterol sulfate 90 mcg/actuation HFA aerosol inhaler 2 puff inhalation Q4-6H PRN (Reason: shortness of breath or wheezing) Qty: 6.7 0RF sotalol 160 mg tablet 160 mg PO Q12H Qty: 180 3RF Patient Comments: am/pm furosemide 20 mg tablet 20 mg PO DAILY PRN (Reason: edema) Qty: 30 0RF ferrous sulfate 134 mg (27 mg iron) tablet 134 mg PO Q OTHER DAY Qty: 30 2RF Referrals: Rex Anders MD [Primary Care Provider, Family Practice] Stand Alone Forms: Patient Portal/API
== END 2024-12-31 17:18 | disposition home or self-care (01) ==
PROVIDERS: Emergency Medicine; Emergency Provider Student in an Organized Health Care Education/Training Program; PCP Family Medicine
DX: I48.91 Unspecified atrial fibrillation (principal); Z79.01 Long term (current) use of anticoagulants
CPT/HCPCS: 71045; 80053; 82550; 83690; 83735; 83880; 84484; 85025; 85610; 85730; 93005; 93010; 96374; 99284

== ENCOUNTER 2025-01-01 22:18 | Inpatient (IN) | payer OTHER, SELFPAY ==
--- NOTE | 2025-01-01 22:20 | EKG_ITS ---
[facility] [id number] [address] Test Date: 2025-01-01 Pat Name: Redd Lucio Department: Room: Gender: Male Rinkman: ANATOLIY : 1950 Requested By: Order Number: [id number] Reading MD: Trevor Yap Measurements Intervals [place] Rate: 110 P: [place]: QRS: -14 QRSD: 122 T: 98 QT: 356 QTc: 481 Interpretive Statements Atrial fibrillation with rapid ventricular response Nonspecific intraventricular conduction delay Minimal voltage criteria for LVH, may be normal variant ( Nahum product ) Nonspecific ST and T wave abnormality Electronically Signed On 01-02-2025 7:24:57 PDT by Trevor Yap
--- NOTE | 2025-01-01 22:20 | DI.RAD.S_ITS ---
PROCEDURE: XR CHEST 1V INDICATIONS: Chest Pain TECHNIQUE: One view of the chest was acquired. COMPARISON: [facility], CR, XR CHEST 1V, 12/31/2024, 15:05. FINDINGS: Surgical changes and devices: Median sternotomy wires and surgical clips are seen. Lungs and pleura: Lungs are clear. No pleural effusions or pneumothorax. Mediastinum: Mediastinal contours appear normal. Heart size is normal. Bones and chest wall: No suspicious bony lesions. Overlying soft tissues appear unremarkable. IMPRESSION: No acute cardiopulmonary pathology. Dictated by: Konstantin Richards M.D. on 01/01/2025 at 22:47 Approved by: Konstantin Richards M.D. on 01/01/2025 at 22:47
[2025-01-01 22:22] VITALS: BP 124/85; PULSE 125; RESP 16; TEMP 36.1; O2SAT 95; BMI 24.3
[2025-01-01 22:54] LABS: Add Manual Diff / Slide Review NO; Hematocrit 36.6 % (41-53); Hemoglobin 12.4 g/dL (13.5-17.5); Lymphocytes Absolute Auto 1200 /uL (1100-4500); Mean Corpuscular HGB Conc 34.0 % (30-36); Mean Corpuscular Hemoglobin 32.7 PG (26-34); Mean Corpuscular Volume 96.2 fL (80-100); Platelet Count 189 X10^3/uL (150-400)
[2025-01-01 22:56] LABS: INR 1.3 (0.9-1.3); Prothrombin Time 14.4 SECONDS (9.4-12.5)
[2025-01-01 22:59] LABS: PTT Partial Thromboplastin Tim 53 SECONDS (25.1-36.5)
--- NOTE | 2025-01-01 22:59 | ED.ARRPALP ---
HPI - Arrhythmia/Palpitations General Chief Complaint: Arrhythmia/Palpitations Stated Complaint: Palpitations, SOB Time Seen by Provider: 01/01/25 22:58 Source: patient Mode of arrival: Ambulatory History of Present Illness HPI narrative: 74-year-old gentleman history of AFib on Pradaxa and sotalol 150 mg, hypertension dyslipidemia diabetes comes to the ED tonite after being seen previously again in the past 24 hours for afib rvr for which he was given diltazem 15mg IV and po 30mg by my collegue. He comes back tonite again in atrial fibrillation despite being on solatol 160mg po bid and metoprolol 25mg daily. He sees Dr. Wilson cardiology last time was a few months ago but at this time denies chest pain, shortness of breath, dyspnea on exertion, lightheadedness, dizziness, leg pain, leg swelling. He has been compliant taking his medications and has not missed a dose. Other than what is stated 14 point review of system is negative. Related Data Previous Rx's ?Medication ?Instructions ?Recorded blood sugar diagnostic (Accu-Chek #100 ea 04/10/24 Guide test strips) carbidopa 25 mg-levodopa 100 mg 1 tab PO TID #90 tabs 09/12/24 tablet benzonatate 100 mg capsule 100 mg PO TID PRN cough 10 days 10/09/24 #30 caps terazosin 10 mg capsule 10 mg PO DAILY #30 caps 10/16/24 triamcinolone acetonide 0.1 % 1 applic topical PRN PRN Itching 10/31/24 topical cream #454 grams hydroxyzine HCl 25 mg tablet 25 mg PO BEDTIME PRN itching #30 11/21/24 tabs nitroglycerin 0.3 mg sublingual 0.3 mg sublingual Q5-15M PRN chest 11/22/24 tablet pain #100 tabs atorvastatin 80 mg tablet 80 mg PO DAILY #90 tabs 12/10/24 dabigatran etexilate 150 mg 150 mg PO BID #180 caps 12/10/24 capsule (Pradaxa) ezetimibe 10 mg tablet 10 mg PO DAILY #30 tabs 12/10/24 hydrochlorothiazide 25 mg tablet 25 mg PO DAILY #90 tabs 12/10/24 losartan 100 mg tablet 100 mg PO DAILY #30 tabs 12/10/24 metoprolol succinate 25 mg See Rx Instructions .Route 12/10/24 tablet,extended release 24 hr .COMPLEX #30 tabs sotalol 160 mg tablet 160 mg PO Q12H #180 tabs 12/13/24 furosemide 20 mg tablet 20 mg PO DAILY PRN edema #30 tabs 12/18/24 ferrous sulfate 134 mg (27 mg 134 mg PO Q OTHER DAY #30 tabs 12/25/24 iron) tablet albuterol sulfate 90 mcg/actuation 2 puff inhalation Q4-6H PRN 01/01/25 aerosol inhaler shortness of breath or wheezing #6.7 grams Allergies Allergy/AdvReac Type Severity Reaction Status Date / Time amoxicillin AdvReac Mild Diarrhea Verified 01/01/25 22:22 Review of Systems Review of Systems ROS Unobtainable: All systems reviewed & are unremarkable except as noted in HPI and below Patient History Medical History C. difficile diarrhea (08/2023) Psoriasis Dyspnea on exertion Colonic polyp Diverticulosis of colon (~11/24/11) Atrial flutter (~07/06/11) Memory impairment Hypertension (~2011) Coronary artery disease (~07/06/11) Atrial fibrillation (~2009) Surgical History Anesthesia S/P CABG x 5 (~1999) History of coronary artery stent placement (~2016) Family History Father Heart disease Mother Hypertension Heart disease Social History marital status: unmarried,living together household members: spouse occupational status: employed alcohol intake: current substance use type: does not use alcohol intake frequency: 0-2 drinks per day Exam Narrative Exam Narrative: GENERAL: [74] year old patient appears stated age. Well-developed patient, in mild distress. HEAD: Atraumatic. Normocephalic. EYES: Pupils equal round and reactive. Extraocular motions intact. No scleral icterus. No injection or drainage. ENT: Nose without bleeding, purulent drainage. Throat without erythema, tonsillar hypertrophy or exudate. Airway patent. NECK: Trachea midline. Non tender CARDIOVASCULAR: Tachycardic irregularly irregular without murmurs, gallops, or rubs. RESPIRATORY: Clear to auscultation. Breath sounds equal bilaterally. No wheezes, rales, or rhonchi. GASTROINTESTINAL: Abdomen soft, non-tender, nondistended. EXTREMITIES: No edema or joint tenderness. BACK: Nontender without deformity or crepitance. No flank tenderness. NEURO: AOx3. SKIN: No rash or erythema of visible areas Initial Vital Signs Initial Vital Signs: Vital Signs Temperature 97.0 F L 01/01/25 22:22 Pulse Rate 125 H 01/01/25 22:22 Respiratory Rate 16 01/01/25 22:22 Blood Pressure 124/85 01/01/25 22:22 Pulse Oximetry 95 01/01/25 22:22 Oxygen Delivery Method Room Air 01/01/25 22:22 Course Orders Ordered: ED Orders 01/01/25 22:20 XR chest 1V Stat EKG-12 Lead Stat 01/01/25 22:35 Complete Blood Count AUTO DIFF Stat Comprehensive Metabolic Panel Stat Lipase Stat Magnesium Stat NT-proBNP (BNP-Adult 18+) Stat PTT Partial Thromboplastin Juan Stat Prothrombin Time INR Stat Troponin & CK Cardiac Panel Stat 01/02/25 00:40 Troponin I Stat Diltiazem HCl 125 mg/ Sodium (Chloride) 125 mls @ 5 mls/hr IV TITRATE JESSICA; Protocol Last Titration: 01/02/25 00:10 Dose: 10 mg/hr, 10 mls/hr Documented By: Admin: 01/01/25 23:30 Dose: 5 mg/hr, 5 mls/hr Documented By: GELA Discontinued Medications Aspirin (Aspirin 81 Mg Chew Tab) 324 mg PO NOW ONE Stop: 01/01/25 22:20 Last Admin: 01/01/25 23:09 Dose: 324 mg Documented By: SGF Vital Signs Vital signs: Vital Signs - 8 hr 01/01/25 22:22 01/01/25 23:05 01/01/25 23:30 Temperature 97.0 F L Pulse Rate 125 H 143 H Respiratory Rate 16 16 Blood Pressure 124/85 128/73 Pulse Oximetry 95 98 Oxygen Delivery Method Room Air 01/01/25 23:30 01/01/25 23:45 01/01/25 23:45 Temperature Pulse Rate 144 H 145 H Respiratory Rate 17 18 Blood Pressure 129/70 Pulse Oximetry 98 98 Oxygen Delivery Method 01/02/25 00:00 01/02/25 00:00 01/02/25 00:15 Temperature Pulse Rate 143 H 137 H Respiratory Rate 18 20 Blood Pressure 124/70 Pulse Oximetry 97 96 Oxygen Delivery Method 01/02/25 00:15 01/02/25 00:30 01/02/25 00:30 Temperature Pulse Rate 144 H Respiratory Rate 17 Blood Pressure 128/72 116/65 Pulse Oximetry 97 Oxygen Delivery Method 01/02/25 00:45 01/02/25 00:45 Temperature Pulse Rate 137 H Respiratory Rate 24 Blood Pressure 103/62 Pulse Oximetry 95 Oxygen Delivery Method MDM - Arrhythmia/Palpitations Lab Data 01/01/25 22:35 01/01/25 22:35 Labs: Lab Results 01/01/25 01/02/25 Range/Units 22:35 00:40 WBC 6.9 (4.5-11.0) X10^3/uL RBC 3.80 L (4.5-5.9) X10^6/uL Hgb 12.4 L (13.5-17.5) g/dL Hct 36.6 L (41-53) % MCV 96.2 (80-100) fL MCH 32.7 (26-34) PG MCHC 34.0 (30-36) % RDW 13.1 (11.6-14.8) % Plt Count 189 (150-400) X10^3/uL Neut % (Auto) 67.8 (50-75) % Lymph % (Auto) 18.1 L (25-40) % [place] % (Auto) 9.6 (3-14) % Eos % (Auto) 3.6 (2-4) % Baso % (Auto) 0.9 (0-2) % Neut # (Auto) 4700 (4567-5124) /uL Lymph # (Auto) 1200 (2920-1868) /uL [place] # (Auto) 700 (0-900) /uL Eos # (Auto) 200 (0-450) /uL Baso # (Auto) 100 (0-100) /uL PT 14.4 H (9.4-12.5) SECONDS INR 1.3 (0.9-1.3) APTT 53 H (25.1-36.5) SECONDS Sodium 136 L (137-145) mmol/L Potassium 4.6 (3.4-5.1) mmol/L Chloride 102 (98-107) mmol/L Carbon Dioxide 26 (22-32) mmol/L BUN 28 H (9-20) mg/dL Creatinine 1.11 (0.66-1.25) mg/dL Estimated GFR > 60 (>60) mL/min BUN/Creatinine Ratio 25.2 H (6-22) Glucose 150 H (70-99) mg/dL Calcium 9.3 (8.4-10.2) mg/dL Magnesium 1.7 (1.6-2.3) mg/dL Total Bilirubin 0.8 (0.2-1.3) mg/dL AST 29 (17-59) IU/L ALT 17 (<50) IU/L Alkaline Phosphatase 76 (38-126) U/L Total Creatine Kinase < 20 L (55-170) U/L Troponin I < 0.012 < 0.012 (0.01-0.034) ng/mL NT-Pro-B Natriuret Pep 5660 H (<450) pg/mL Total Protein 7.5 (6.3-8.2) g/dL Albumin 4.3 (3.5-5.0) g/dL Globulin 3.2 (1.7-4.1) g/dL Albumin/Globulin Ratio 1.3 (1.0-2.8) Lipase 280 (23-300) U/L Imaging Data Chest x-ray: Radiologist's Impresson: [address] [address] XRay Report Signed Patient: Redd Lucio MR#: [id number] : 1950 Acct:[id number] Age/Sex: 74 / M Date of Service: 01/01/25 Loc: ED Accession Number: [id number] Procedure: XR chest 1V Ordering Provider: Nisa Calhoun MD PROCEDURE: XR CHEST 1V INDICATIONS: Chest Pain TECHNIQUE: One view of the chest was acquired. COMPARISON: [facility], , XR CHEST 1V, 12/31/2024, 15:05. FINDINGS: Surgical changes and devices: Median sternotomy wires and surgical clips are seen. Lungs and pleura: Lungs are clear. No pleural effusions or pneumothorax. Mediastinum: Mediastinal contours appear normal. Heart size is normal. Bones and chest wall: No suspicious bony lesions. Overlying soft tissues appear unremarkable. IMPRESSION: No acute cardiopulmonary pathology. ECG Data Interpretation: Afib RVR HR 110 MS undetermined QRS [address]-t wave change Unchanged from 12/31/24 MDM Narrative Medical decision making narrative: All labwork, vital signs, nurse triage note, medication list, imaging studies, and previous ER visits all reviewed. Pt started on dilitazem drip at 5mg /hr and now increased to 10mg/hr for which pt has since converted to NSR. 2 sets troponin are negative. Case d/w to start on diltiazem drip and if he did not convert to keep NPO for possible conversion in AM. Case d/w who has graciously accepted pt for observation. Differential dx AFib, Aflutte, NSTEMI, STEMI, CHF. Discharge Plan Departure Patient Disposition: Admitted as Observation Clinical Impression: Atrial fibrillation with rapid ventricular response Admit Date/Time: 01/02/25 02:31 Admit Provider: Rex Lainez
[2025-01-01 23:01] LABS: Alanine Aminotransferase 17 IU/L (<50); Albumin 4.3 g/dL (3.5-5.0); Albumin Globulin Ratio 1.3 (1.0-2.8); Alkaline Phosphatase 76 U/L (38-126); Blood Urea Nitrogen 28 mg/dL (9-20); Calcium 9.3 mg/dL (8.4-10.2); Carbon Dioxide 26 mmol/L (22-32); Chloride 102 mmol/L (98-107); Creatine Kinase < 20 U/L (55-170); Estimated Glomerular Filt Rate > 60 mL/min (>60); Globulin 3.2 g/dL (1.7-4.1); Glucose 150 mg/dL (70-99); HEMOLYSIS < 15 (0-50); Lipase 280 U/L (23-300); Magnesium 1.7 mg/dL (1.6-2.3); Potassium 4.6 mmol/L (3.4-5.1); Sodium 136 mmol/L (137-145); Total Protein 7.5 g/dL (6.3-8.2)
[2025-01-01 23:05] VITALS: PULSE 143; RESP 16; O2SAT 98
[2025-01-01] MEDS: ASPIRIN 81 MG CHEW TAB 324 MG PO (23:09)
[2025-01-01 23:12] LABS: NT-proBNP (BNP-Adult 18+) 5660 pg/mL (<450); Troponin I < 0.012 ng/mL (0.01-0.034)
[2025-01-01 23:30] VITALS: BP 128/73; PULSE 144; RESP 17; O2SAT 98
[2025-01-01 23:45] VITALS: BP 129/70; PULSE 145; RESP 18; O2SAT 98
[2025-01-02] VITALS (39 sets, daily range): BP systolic 103–160; BP diastolic 62–95; PULSE 78–144; RESP 15–36; TEMP 36.4–36.6; O2SAT 95–99; BMI 24.3
[2025-01-02 01:10] LABS: Troponin I < 0.012 ng/mL (0.01-0.034)
--- NOTE | 2025-01-02 01:34 | EKG_ITS ---
[facility] [address] [place] [address] Test Date: 2025-01-02 Pat Name: Redd Lucio Department: Room: A Gender: Male Manager Chemistry: : 1950 Requested By: Order Number: [id number] Reading MD: Trevor Yap Measurements Intervals [place] Rate: 87 P: [place]: 184 QRS: -14 QRSD: 122 T: 98 QT: 380 QTc: 457 Interpretive Statements Normal sinus rhythm Nonspecific intraventricular conduction delay Minimal voltage criteria for LVH, may be normal variant ( Nahum product ) Nonspecific ST and T wave abnormality Electronically Signed On 01-02-2025 7:25:11 PDT by Trevor Yap
--- NOTE | 2025-01-02 03:09 | PC.NURSE ---
Provider would like patient to be started back on diltiazem due to patient going back into afib with controlled rate under 100
--- NOTE | 2025-01-02 03:18 | EKG_ITS ---
[id number] [place] [id number] Test Date: 2025-01-02 Pat Name: Redd Lucio Department: Room: 231 Gender: Male Mapping Engineer: : 1950 Requested By: Order Number: [id number] Reading MD: Trevor Yap Measurements Intervals [place] Rate: 95 P: [place]: 192 QRS: -15 QRSD: 114 T: 77 QT: 360 QTc: 452 Interpretive Statements Sinus rhythm with marked sinus arrhythmia with premature supraventricular complexes Minimal voltage criteria for LVH, may be normal variant ( Nahum product ) Nonspecific ST abnormality Electronically Signed On 01-02-2025 7:25:25 PDT by Trevor Yap
--- NOTE | 2025-01-02 04:23 | PC.NURSE ---
attempted to give report to icu at this time. was told rn currently unavailable and that he will call back.
--- NOTE | 2025-01-02 06:15 | EKG_ITS ---
[place] [id number] [place] [id number] Test Date: 2025-01-02 Pat Name: Redd Lucio Department: Room: 231 Gender: Male Lead Software Architect: lars : [id number] Requested By: Order Number: [id number] Reading MD: Malcolm Carrillo MD Measurements Intervals [place] Rate: 96 P: SC: 168 QRS: -15 QRSD: 114 T: 112 QT: 376 QTc: 475 Interpretive Statements Sinus rhythm with premature atrial complexes with aberrant conduction Minimal voltage criteria for LVH, may be normal variant ( [place] product ) Nonspecific ST and T wave abnormality NO SIGNIFICANT CHANGE FROM PRIOR TRACING Electronically Signed On 01-02-2025 9:40:54 PDT by Malcolm Carrillo MD
[2025-01-02 06:26] LABS: Add Manual Diff / Slide Review NO; Hematocrit 35.1 % (41-53); Hemoglobin 11.9 g/dL (13.5-17.5); Lymphocytes Absolute Auto 1100 /uL (1100-4500); Mean Corpuscular HGB Conc 34.1 % (30-36); Mean Corpuscular Hemoglobin 32.7 PG (26-34); Mean Corpuscular Volume 96.1 fL (80-100); Platelet Count 171 X10^3/uL (150-400)
[2025-01-02 06:30] LABS: Creatine Kinase 21 U/L (55-170)
[2025-01-02 06:32] LABS: Alanine Aminotransferase 20 IU/L (<50); Albumin 3.8 g/dL (3.5-5.0); Albumin Globulin Ratio 1.3 (1.0-2.8); Alkaline Phosphatase 71 U/L (38-126); Blood Urea Nitrogen 27 mg/dL (9-20); Calcium 9.5 mg/dL (8.4-10.2); Carbon Dioxide 27 mmol/L (22-32); Chloride 103 mmol/L (98-107); Estimated Glomerular Filt Rate > 60 mL/min (>60); Globulin 3.0 g/dL (1.7-4.1); Glucose 133 mg/dL (70-99); HEMOLYSIS 18 (0-50); Potassium 4.4 mmol/L (3.4-5.1); Sodium 136 mmol/L (137-145); Total Protein 6.8 g/dL (6.3-8.2)
[2025-01-02] MEDS: SODIUM CHLORIDE 0.9% 1,000 ML 100 ML IV (06:34)
[2025-01-02 06:40] LABS: MRSA (Nasal) PCR DETECTED (Not Detect)
[2025-01-02 06:42] LABS: Troponin I 0.077 ng/mL (0.01-0.034)
--- NOTE | 2025-01-02 06:44 | ED.ARRPALP ---
HPI - Arrhythmia/Palpitations General Chief Complaint: Arrhythmia/Palpitations Stated Complaint: Palpitations, SOB Time Seen by Provider: 01/01/25 22:58 Source: patient Mode of arrival: Ambulatory History of Present Illness HPI narrative: 74-year-old gentleman history of atrial fibrillation on sotalol 160 b.i.d. Pradaxa, metoprolol 25 mg was in AFib RVR seen by my colleague last evening given diltiazem 15 mg IV and diltiazem 30 mg p.o. sent home and came back tonight into the ER again with heart palpitations in atrial fibrillation RVR. He has been compliant in taking his medicines and has not skipped any dosages. He denies any chest pain,shortness of breath, leg pain, leg swelling, back pain, diaphoresis nausea vomiting. Other than what is stated 14 point review of system is negative. Related Data Previous Rx's ?Medication ?Instructions ?Recorded blood sugar diagnostic (Accu-Chek #100 ea 04/10/24 Guide test strips) carbidopa 25 mg-levodopa 100 mg 1 tab PO TID #90 tabs 09/12/24 tablet benzonatate 100 mg capsule 100 mg PO TID PRN cough 10 days 10/09/24 #30 caps terazosin 10 mg capsule 10 mg PO DAILY #30 caps 10/16/24 triamcinolone acetonide 0.1 % 1 applic topical PRN PRN Itching 10/31/24 topical cream #454 grams hydroxyzine HCl 25 mg tablet 25 mg PO BEDTIME PRN itching #30 11/21/24 tabs nitroglycerin 0.3 mg sublingual 0.3 mg sublingual Q5-15M PRN chest 11/22/24 tablet pain #100 tabs atorvastatin 80 mg tablet 80 mg PO DAILY #90 tabs 12/10/24 dabigatran etexilate 150 mg 150 mg PO BID #180 caps 12/10/24 capsule (Pradaxa) ezetimibe 10 mg tablet 10 mg PO DAILY #30 tabs 12/10/24 hydrochlorothiazide 25 mg tablet 25 mg PO DAILY #90 tabs 12/10/24 losartan 100 mg tablet 100 mg PO DAILY #30 tabs 12/10/24 metoprolol succinate 25 mg See Rx Instructions .Route 12/10/24 tablet,extended release 24 hr .COMPLEX #30 tabs sotalol 160 mg tablet 160 mg PO Q12H #180 tabs 12/13/24 furosemide 20 mg tablet 20 mg PO DAILY PRN edema #30 tabs 12/18/24 ferrous sulfate 134 mg (27 mg 134 mg PO Q OTHER DAY #30 tabs 12/25/24 iron) tablet albuterol sulfate 90 mcg/actuation 2 puff inhalation Q4-6H PRN 01/01/25 aerosol inhaler shortness of breath or wheezing #6.7 grams Allergies Allergy/AdvReac Type Severity Reaction Status Date / Time amoxicillin AdvReac Mild Diarrhea Verified 01/01/25 22:22 Review of Systems Review of Systems ROS Unobtainable: All systems reviewed & are unremarkable except as noted in HPI and below Patient History Medical History C. difficile diarrhea (08/2023) Psoriasis Dyspnea on exertion Colonic polyp Diverticulosis of colon (~11/24/11) Atrial flutter (~07/06/11) Memory impairment Hypertension (~2011) Coronary artery disease (~07/06/11) Atrial fibrillation (~2009) Surgical History Anesthesia S/P CABG x 5 (~1999) History of coronary artery stent placement (~2016) Family History Father Heart disease Mother Hypertension Heart disease Social History marital status: unmarried,living together household members: spouse occupational status: employed alcohol intake: current substance use type: does not use alcohol intake frequency: 0-2 drinks per day Exam Narrative Exam Narrative: GENERAL: [74] year old patient appears stated age. Well-developed patient, in mild distress. HEAD: Atraumatic. Normocephalic. EYES: Pupils equal round and reactive. Extraocular motions intact. No scleral icterus. No injection or drainage. ENT: Nose without bleeding, purulent drainage. Throat without erythema, tonsillar hypertrophy or exudate. Airway patent. NECK: Trachea midline. Non tender CARDIOVASCULAR: Tachycardic irregularly irregular rate and rhythm without murmurs, gallops, or rubs. RESPIRATORY: Clear to auscultation. Breath sounds equal bilaterally. No wheezes, rales, or rhonchi. GASTROINTESTINAL: Abdomen soft, non-tender, nondistended. EXTREMITIES: No edema or joint tenderness. BACK: Nontender without deformity or crepitance. No flank tenderness. NEURO: AOx3. SKIN: No rash or erythema of visible areas Initial Vital Signs Initial Vital Signs: Vital Signs Temperature 97.0 F L 01/01/25 22:22 Pulse Rate 125 H 01/01/25 22:22 Respiratory Rate 16 01/01/25 22:22 Blood Pressure 124/85 01/01/25 22:22 Pulse Oximetry 95 01/01/25 22:22 Oxygen Delivery Method Room Air 01/01/25 22:22 Course Orders Ordered: ED Orders 01/01/25 22:20 XR chest 1V Stat EKG-12 Lead Stat 01/01/25 22:35 Complete Blood Count AUTO DIFF Stat Comprehensive Metabolic Panel Stat Lipase Stat Magnesium Stat NT-proBNP (BNP-Adult 18+) Stat PTT Partial Thromboplastin Juan Stat Prothrombin Time INR Stat Troponin & CK Cardiac Panel Stat 01/02/25 00:40 Troponin I Stat Dabigatran (Dabigatran 75 Mg Capsule) 150 mg PO BID JESSICA Diltiazem HCl (Diltiazem Cd 120 Mg Cap) 120 mg PO DAILY JESSICA Diltiazem HCl 125 mg/ Sodium (Chloride) 125 mls @ 5 mls/hr IV TITRATE JESSICA; Protocol Last Titration: 01/02/25 03:30 Dose: 5 mg/hr, 5 mls/hr Documented By: Titration: 01/02/25 03:30 Dose: 10 mg/hr, 10 mls/hr Documented By: Admin: 01/02/25 03:00 Dose: 5 mg/hr, 5 mls/hr Documented By: Titration: 01/02/25 01:45 Dose: Infused Documented By: Titration: 01/02/25 00:40 Dose: 15 mg/hr, 15 mls/hr Documented By: Titration: 01/02/25 00:10 Dose: 10 mg/hr, 10 mls/hr Documented By: Admin: 01/01/25 23:30 Dose: 5 mg/hr, 5 mls/hr Documented By: SGF Sodium Chloride (Normal Saline 0.9%) 1,000 mls @ 100 mls/hr IV CONT JESSICA Last Admin: 01/02/25 06:34 Dose: 100 mls/hr Documented By: DAVID Sotalol HCl (Sotalol 80 Mg Tablet) 80 mg PO BID JESSICA Discontinued Medications Aspirin (Aspirin 81 Mg Chew Tab) 324 mg PO NOW ONE Stop: 01/01/25 22:20 Last Admin: 01/01/25 23:09 Dose: 324 mg Documented By: SGF Vital Signs Vital signs: Vital Signs - 8 hr 01/01/25 23:05 01/01/25 23:30 01/01/25 23:30 Pulse Rate 143 H 144 H Respiratory Rate 16 17 Blood Pressure 128/73 Pulse Oximetry 98 98 01/01/25 23:45 01/01/25 23:45 01/02/25 00:00 Pulse Rate 145 H Respiratory Rate 18 Blood Pressure 129/70 124/70 Pulse Oximetry 98 01/02/25 00:00 01/02/25 00:15 01/02/25 00:15 Pulse Rate 143 H 137 H Respiratory Rate 18 20 Blood Pressure 128/72 Pulse Oximetry 97 96 01/02/25 00:30 01/02/25 00:30 01/02/25 00:45 Pulse Rate 144 H Respiratory Rate 17 Blood Pressure 116/65 103/62 Pulse Oximetry 97 01/02/25 00:45 01/02/25 01:00 01/02/25 01:00 Pulse Rate 137 H 95 H Respiratory Rate 24 18 Blood Pressure 114/67 Pulse Oximetry 95 96 01/02/25 01:15 01/02/25 01:15 01/02/25 01:30 Pulse Rate 87 Respiratory Rate 19 Blood Pressure 122/70 119/76 Pulse Oximetry 95 01/02/25 01:30 01/02/25 01:45 01/02/25 01:45 Pulse Rate 87 87 Respiratory Rate 16 17 Blood Pressure 135/81 Pulse Oximetry 96 96 01/02/25 02:00 01/02/25 02:00 01/02/25 02:15 Pulse Rate 87 87 Respiratory Rate 17 17 Blood Pressure 140/78 Pulse Oximetry 96 96 01/02/25 02:15 01/02/25 02:30 Pulse Rate 89 Respiratory Rate 16 Blood Pressure 140/86 Pulse Oximetry 97 MDM - Arrhythmia/Palpitations Lab Data 01/02/25 04:30 01/02/25 04:30 Labs: Lab Results 01/01/25 01/02/25 Range/Units 22:35 00:40 WBC 6.9 (4.5-11.0) X10^3/uL RBC 3.80 L (4.5-5.9) X10^6/uL Hgb 12.4 L (13.5-17.5) g/dL Hct 36.6 L (41-53) % MCV 96.2 (80-100) fL MCH 32.7 (26-34) PG MCHC 34.0 (30-36) % RDW 13.1 (11.6-14.8) % Plt Count 189 (150-400) X10^3/uL Neut % (Auto) 67.8 (50-75) % Lymph % (Auto) 18.1 L (25-40) % [place] % (Auto) 9.6 (3-14) % Eos % (Auto) 3.6 (2-4) % Baso % (Auto) 0.9 (0-2) % Neut # (Auto) 4700 (7456-1688) /uL Lymph # (Auto) 1200 (6494-0459) /uL [place] # (Auto) 700 (0-900) /uL Eos # (Auto) 200 (0-450) /uL Baso # (Auto) 100 (0-100) /uL PT 14.4 H (9.4-12.5) SECONDS INR 1.3 (0.9-1.3) APTT 53 H (25.1-36.5) SECONDS Sodium 136 L (137-145) mmol/L Potassium 4.6 (3.4-5.1) mmol/L Chloride 102 (98-107) mmol/L Carbon Dioxide 26 (22-32) mmol/L BUN 28 H (9-20) mg/dL Creatinine 1.11 (0.66-1.25) mg/dL Estimated GFR > 60 (>60) mL/min BUN/Creatinine Ratio 25.2 H (6-22) Glucose 150 H (70-99) mg/dL Calcium 9.3 (8.4-10.2) mg/dL Magnesium 1.7 (1.6-2.3) mg/dL Total Bilirubin 0.8 (0.2-1.3) mg/dL AST 29 (17-59) IU/L ALT 17 (<50) IU/L Alkaline Phosphatase 76 (38-126) U/L Total Creatine Kinase < 20 L (55-170) U/L Troponin I < 0.012 < 0.012 (0.01-0.034) ng/mL NT-Pro-B Natriuret Pep 5660 H (<450) pg/mL Total Protein 7.5 (6.3-8.2) g/dL Albumin 4.3 (3.5-5.0) g/dL Globulin 3.2 (1.7-4.1) g/dL Albumin/Globulin Ratio 1.3 (1.0-2.8) Lipase 280 (23-300) U/L MDM Narrative Medical decision making narrative: Vital signs, nurse triage note, medication list, previous ER visits, and all imaging studies reviewed. Patient is started on a diltiazem drip at 5 mg an hour after consultation with Dr. Serrato. Two sets of troponin normal. BNP 5660 hemoglobin 11.9 EKG shows atrial fibrillation rapid ventricular response. Differential diagnosis atrial fibrillation flutter NSTEMI STEMI CHF. Case discussed with who has graciously accepted the patient for inpatient admission. Discharge Plan Departure Patient Disposition: Admitted as Observation Clinical Impression: Atrial fibrillation with rapid ventricular response Admit Date/Time: 01/02/25 02:31 Admit Provider: Rex Lainez
[2025-01-02 07:24] LABS: Thyroid Stimulating Hormone 3.51 uIU/mL (0.47-4.68)
--- NOTE | 2025-01-02 08:24 | PM.HP.IH.1 ---
History of Present Illness History of Present Illness Chief complaint: Palpitations, SOB Narrative: 74-year-old male with Afib on Pradaxa and sotalol, CAD, CHF, HTN, CKD, diabetes. Presented to ER twice over past two days for AFib with RVR. On 1st presentation was given diltiazem 15 mg IV and 30 mg p.o. then discharged home. Returned again last night despite being on sotalol 160 mg b.i.d. and metoprolol 25 mg daily. Denies chest pain, SOB, dyspnea on exertion, lightheadedness, dizziness, leg pain/swelling. Has been adherent to prescribed medications without missing a dose. Follows with Dr. Wilson ([facility]). ER evaluation notable for hemoglobin 12.4, glucose 150, pro-BNP 5660, troponin negative x2; remainder of CBC, CMP, CK, lipase unremarkable. CXR without acute cardiopulmonary process. EKG history AFib with RVR to 110s, no ST or T-wave changes. Dr. Serrato consulted from ER, started on diltiazem drip at 5 mg/hr then increase to 10 mg/hr, at which point he converted to sinus rhythm around 0600 this morning. [facility] Medical History (Updated 01/02/25 @ 18:18 by Rex Anders MD) C. difficile diarrhea (08/2023) Psoriasis Colonic polyp Diverticulosis of colon (~11/24/11) Atrial flutter (~07/06/11) Memory impairment Hypertension (~2011) Coronary artery disease (~07/06/11) Atrial fibrillation (~2009) Surgical History Anesthesia S/P CABG x 5 (~1999) History of coronary artery stent placement (~2016) Family History Father Heart disease Mother Hypertension Heart disease Social History marital status: unmarried,living together household members: spouse occupational status: employed alcohol intake: current substance use type: does not use Meds Home Medications and Allergies Home Medications ?Medication ?Instructions ?Recorded ?Confirmed ?Type blood sugar diagnostic (Accu-Chek #100 ea 04/10/24 11/21/24 Rx Guide test strips) carbidopa 25 mg-levodopa 100 mg 1 tab PO TID #90 tabs 09/12/24 11/21/24 Rx tablet benzonatate 100 mg capsule 100 mg PO TID PRN cough 10 days 10/09/24 11/21/24 Rx #30 caps terazosin 10 mg capsule 10 mg PO DAILY #30 caps 10/16/24 11/21/24 Rx triamcinolone acetonide 0.1 % 1 applic topical PRN PRN Itching 10/31/24 11/21/24 Rx topical cream #454 grams hydroxyzine HCl 25 mg tablet 25 mg PO BEDTIME PRN itching #30 11/21/24 Rx tabs nitroglycerin 0.3 mg sublingual 0.3 mg sublingual Q5-15M PRN chest 11/22/24 Rx tablet pain #100 tabs atorvastatin 80 mg tablet 80 mg PO DAILY #90 tabs 12/10/24 Rx dabigatran etexilate 150 mg 150 mg PO BID #180 caps 12/10/24 Rx capsule (Pradaxa) ezetimibe 10 mg tablet 10 mg PO DAILY #30 tabs 12/10/24 Rx hydrochlorothiazide 25 mg tablet 25 mg PO DAILY #90 tabs 12/10/24 Rx losartan 100 mg tablet 100 mg PO DAILY #30 tabs 12/10/24 Rx sotalol 160 mg tablet 160 mg PO Q12H #180 tabs 12/13/24 Rx furosemide 20 mg tablet 20 mg PO DAILY PRN edema #30 tabs 12/18/24 Rx ferrous sulfate 134 mg (27 mg 134 mg PO Q OTHER DAY #30 tabs 12/25/24 Rx iron) tablet albuterol sulfate 90 mcg/actuation 2 puff inhalation Q4-6H PRN 01/01/25 Rx aerosol inhaler shortness of breath or wheezing #6.7 grams metoprolol succinate 50 mg 50 mg PO DAILY #30 tabs 01/02/25 Rx tablet,extended release 24 hr Allergies Allergy/AdvReac Type Severity Reaction Status Date / Time amoxicillin AdvReac Mild Diarrhea Verified 01/01/25 22:22 Review of Systems Review of Systems ROS: Yes All systems reviewed with the patient and are negative except as otherwise documented Exam Vital Signs (past 8 hours): - 01/02/25 00:30 01/02/25 00:30 01/02/25 00:45 Temperature Pulse Rate 144 H Respiratory Rate 17 Blood Pressure 116/65 103/62 Pulse Oximetry 97 Oxygen Delivery Method Oxygen Flow Rate 01/02/25 00:45 01/02/25 01:00 01/02/25 01:00 Temperature Pulse Rate 137 H 95 H Respiratory Rate 24 18 Blood Pressure 114/67 Pulse Oximetry 95 96 Oxygen Delivery Method Oxygen Flow Rate 01/02/25 01:15 01/02/25 01:15 01/02/25 01:30 Temperature Pulse Rate 87 Respiratory Rate 19 Blood Pressure 122/70 119/76 Pulse Oximetry 95 Oxygen Delivery Method Oxygen Flow Rate 01/02/25 01:30 01/02/25 01:45 01/02/25 01:45 Temperature Pulse Rate 87 87 Respiratory Rate 16 17 Blood Pressure 135/81 Pulse Oximetry 96 96 Oxygen Delivery Method Oxygen Flow Rate 01/02/25 02:00 01/02/25 02:00 01/02/25 02:15 Temperature Pulse Rate 87 87 Respiratory Rate 17 17 Blood Pressure 140/78 Pulse Oximetry 96 96 Oxygen Delivery Method Oxygen Flow Rate 01/02/25 02:15 01/02/25 02:30 01/02/25 02:45 Temperature Pulse Rate 89 Respiratory Rate 16 Blood Pressure 140/86 141/85 H Pulse Oximetry 97 Oxygen Delivery Method Oxygen Flow Rate 01/02/25 02:45 01/02/25 03:00 01/02/25 03:00 Temperature Pulse Rate 91 H 93 H Respiratory Rate 19 19 Blood Pressure 149/84 H Pulse Oximetry 97 97 Oxygen Delivery Method Oxygen Flow Rate 01/02/25 03:15 01/02/25 03:15 01/02/25 03:29 Temperature Pulse Rate 99 H 95 H Respiratory Rate 20 18 Blood Pressure 145/84 H Pulse Oximetry 96 96 Oxygen Delivery Method Oxygen Flow Rate 01/02/25 03:30 01/02/25 03:30 01/02/25 03:45 Temperature Pulse Rate 96 H Respiratory Rate 18 Blood Pressure 129/81 138/85 Pulse Oximetry 96 Oxygen Delivery Method Oxygen Flow Rate 01/02/25 03:45 01/02/25 04:00 01/02/25 04:00 Temperature Pulse Rate 90 88 Respiratory Rate 15 22 Blood Pressure 151/95 H Pulse Oximetry 97 99 Oxygen Delivery Method Oxygen Flow Rate 01/02/25 04:15 01/02/25 04:15 01/02/25 04:30 Temperature Pulse Rate 88 Respiratory Rate 18 Blood Pressure 146/87 H 143/89 H Pulse Oximetry 97 Oxygen Delivery Method Oxygen Flow Rate 01/02/25 04:30 01/02/25 04:44 01/02/25 04:45 Temperature Pulse Rate 88 90 Respiratory Rate 21 20 Blood Pressure 147/92 H Pulse Oximetry 98 97 Oxygen Delivery Method Oxygen Flow Rate 01/02/25 04:55 01/02/25 05:20 Temperature 97.8 F Pulse Rate 78 Respiratory Rate 16 Blood Pressure 148/83 H Pulse Oximetry 98 Oxygen Delivery Method Room Air Oxygen Flow Rate 0 Oxygen Delivery Method Room Air Oxygen Flow Rate 0 Narrative Exam Narrative: General: Pleasant, NAD HEENT: NC/AT, EOMI, moist membranes CV: RRR, normal S1-S2, 3/6 systolic murmur heard best at RUSB Resp: CTAB, comfortable WOB Abd: Soft, NTND, +BS Ext: No edema Skin: No rash or lesions noted Neuro: A&O x3, moves all extremities, no focal deficits Objective Labs 01/02/25 04:30 01/02/25 04:30 Labs: Laboratory Results - last 24 hr 01/01/25 01/02/25 01/02/25 22:35 00:40 04:30 WBC 6.9 5.8 RBC 3.80 L 3.65 L Hgb 12.4 L 11.9 L Hct 36.6 L 35.1 L MCV 96.2 96.1 MCH 32.7 32.7 MCHC 34.0 34.1 RDW 13.1 12.9 Plt Count 189 171 Neut % (Auto) 67.8 69.6 Lymph % (Auto) 18.1 L 18.7 L [place] % (Auto) 9.6 8.8 Eos % (Auto) 3.6 1.7 L Baso % (Auto) 0.9 1.2 Neut # (Auto) 4700 4100 Lymph # (Auto) 1200 1100 [place] # (Auto) 700 500 Eos # (Auto) 200 100 Baso # (Auto) 100 100 PT 14.4 H INR 1.3 APTT 53 H Sodium 136 L 136 L Potassium 4.6 4.4 Chloride 102 103 Carbon Dioxide 26 27 BUN 28 H 27 H Creatinine 1.11 0.94 Estimated GFR > 60 > 60 BUN/Creatinine Ratio 25.2 H 28.7 H Glucose 150 H 133 H Calcium 9.3 9.5 Magnesium 1.7 Total Bilirubin 0.8 1.1 AST 29 27 ALT 17 20 Alkaline Phosphatase 76 71 Total Creatine Kinase < 20 L 21 L Troponin I < 0.012 < 0.012 0.077 H NT-Pro-B Natriuret Pep 5660 H Total Protein 7.5 6.8 Albumin 4.3 3.8 Globulin 3.2 3.0 Albumin/Globulin Ratio 1.3 1.3 Lipase 280 TSH 3.51 Nasal Screen MRSA (PCR) 01/02/25 05:17 WBC RBC Hgb Hct MCV MCH MCHC RDW Plt Count Neut % (Auto) Lymph % (Auto) [place] % (Auto) Eos % (Auto) Baso % (Auto) Neut # (Auto) Lymph # (Auto) [place] # (Auto) Eos # (Auto) Baso # (Auto) PT INR APTT Sodium Potassium Chloride Carbon Dioxide BUN Creatinine Estimated GFR BUN/Creatinine Ratio Glucose Calcium Magnesium Total Bilirubin AST ALT Alkaline Phosphatase Total Creatine Kinase Troponin I NT-Pro-B Natriuret Pep Total Protein Albumin Globulin Albumin/Globulin Ratio Lipase TSH Nasal Screen MRSA (PCR) Detected H Assessment & Plan Assessment and plan (1) Atrial fibrillation with rapid ventricular response: Status: Acute (2) Paroxysmal atrial fibrillation: Status: Acute (3) Coronary artery disease: Qualifiers: Associated angina: without angina Coronary Disease-Associated Artery/Lesion type: unspecified vessel or lesion type [place] vs. transplanted heart: [place] heart Qualified Code(s): I25.10 - Atherosclerotic heart disease of [place] coronary artery without angina pectoris Status: Acute (4) Hypertension: Qualifiers: Hypertension type: primary hypertension Qualified Code(s): I10 - Essential (primary) hypertension Status: Chronic (5) Anemia: Qualifiers: Anemia type: unspecified type Qualified Code(s): D64.9 - Anemia, unspecified Status: Acute (6) Diabetes mellitus type 2, diet-controlled: Status: Acute Assessment & Plan narrative: 74-year-old male with PAF on Pradaxa, CAD (s/p CABG x5), CHF, HTN, CKD, diabetes admitted for AFib with RVR. #Afib w/RVR #PAF Known PAF with new onset RVR over past 2 days. Discussed with primary bus and trolley inspecting dispatcher (Dr. Barrett) who recommended increasing metoprolol to 50 mg in addition to prescribed sotalol. Okay to discharge home if patient tolerates increased BB dose without bradycardia. Patient has been asymptomatic with NSR in 90s over the course of the day and is anxious to return home. Discharging with strong recommendation to follow-up with cardiology JOSE LUIS. -Start metoprolol ER 50 mg daily -Continue sotalol 160 mg BID, dabigatran 150 mg BID # CAD # Hypertension -Metoprolol, home sotalol as above -Continue home atorvastatin, ezetimibe # Normocytic anemia Chronic, suspect iron deficiency # Diabetes Diet controlled Dispo: ICU obs Diet: Carb controlled DVT ppx: Pradaxa Code: FULL PCP: [facility] MDM: (Mirta Crowder, ) Time-Based Coding :: 60 minutes spent with patient and on the chart (including review of chart, obtaining history, exam, reviewing outside data, placing orders, documenting exam and treatment plan, and counseling patient) on 01/02/2025. PROFEE Shredding Machine Tender Document charge(s): Yes Charge Codes Inpatient/observation care including admit and discharge same day: [id number]
[2025-01-02] MEDS: DABIGATRAN 75 MG CAPSULE 150 MG PO (08:55)
[2025-01-02] MEDS: SOTALOL 80 MG TABLET PO ×2 (08:56→13:47)
--- NOTE | 2025-01-02 11:43 | CM.DANOTE ---
Initial DCP Assessment Note. Review EMR and PT Interview. Met with patient at bedside to discuss discharge needs.PT is alert x 4. No acute distress. Patient lives independently with in their own home. Upon discharge patient will drive himself home. Payor: [facility] PCP: Dr. Anders Summary & Plan: 74 y/o male drove himself to the ED and admitted INPT ICU Dx. A. Fib with RVR. Plan: Transition fron IV Diltuazem to PO Diltiazem PO. Continue ICU monitoring. Josey Crespo RN Discharge Planning/Care Management Advanced directive, confirm from FAMILY Start: 01/02/25 05:48 Freq: Q24H Status: Active Protocol: Document 01/02/25 05:48 SW (Rec: 01/02/25 09:07 SW [id number]) Advance Directive, confirm on record Time 09:06 Person contacted Maria Teresa Copy received Yes CM Discharge Assessment Start: 01/02/25 05:20 Freq: Status: Active Protocol: Document 01/02/25 11:39 SM (Rec: 01/02/25 11:43 SM [id number]) Discharge Planning Assessment Assigned Discharge Josey GUTIERREZ Actuarial Mathematician Provider Dr. Anders Insurance [facility] Advance Directives? Yes Advance Directives No on File History Provided By Patient,Family Member,Medical Record Has Patient been No admitted in last 30 days? Prior Living House Arrangements Household Members spouse Type of Drives own vehicle transporation used prior to admit Independent with ADL Yes 's Is patient alert and Yes oriented? Barriers to No Discharge Discharge Plan Home Transportation Pt's vehicle is in the parking lot and plans to drive Arrangement himself home Referrals Initiated None needed Additional Comment r/o HH Review Status In Process Please Provide Date 01/02/25 Initial DC Assessment Was Performed Next Review Type Continued Stay Review
[2025-01-02] MEDS: METOPROLOL ER 50 MG TABLET PO (13:47)
--- NOTE | 2025-01-02 18:14 | PC.NURSE ---
Discharge order received. IV and telemetry removed, no medications in pt drawer, all belongings sent with pt. Reviewed discharge instructions with pt. Pt wheeled to exit by hospital staff.
== END 2025-01-02 18:14 | disposition home or self-care (01) | DRG 309 ==
LOC: ED 22:58 → AC 01-02 02:37 → ICU 01-02 07:37 → AC 01-02 11:04 → ICU 01-02 11:04
PROVIDERS: Emergency Medicine; Admitting Provider Family Medicine; Emergency Provider Family Medicine; PCP Family Medicine; Referring Provider Family Medicine; Visit Provider Family Medicine
DX: I48.0 Paroxysmal atrial fibrillation (principal); I13.0 Hypertensive heart and chronic kidney disease with heart failure and stage 1 through stage 4 chronic kidney disease, or unspecified chronic kidney disease; I25.10 Atherosclerotic heart disease of native coronary artery without angina pectoris; N18.9 Chronic kidney disease, unspecified; I50.9 Heart failure, unspecified; E11.22 Type 2 diabetes mellitus with diabetic chronic kidney disease; D50.9 Iron deficiency anemia, unspecified; Z95.1 Presence of aortocoronary bypass graft; Z79.01 Long term (current) use of anticoagulants; Z87.891 Personal history of nicotine dependence
CPT/HCPCS: 36415; 71045; 80053; 82550; 82962; 83690; 83735; 83880; 84443; 84484; 85025; 85610; 85730; 87797; 93005; 93010; 96365; 96366; 99235; 99284

== ENCOUNTER → 2025-03-06 11:00 | Outpatient (CLI) | payer OTHER, SELFPAY ==
[2025-02-05 12:16] VITALS: BMI 24.3
--- OUTSIDE RECORDS SUMMARY | 2025-03-08 10:20 | XMS_ITS | Encounter Summary ---
Author Organization [facility] Address [address] [place] [address] Care Team Providers Care Lockstitch Tunnel Elastic Operator Name Role Phone Rex Anders MD Primary Care Provider [phone] Reason for Referral * Diagnostic Imaging (Routine) - Pending Review Specialty Diagnoses / Procedures Referred By Contac t Referred To Contact Diagnoses Aortic valve stenosis, etiology of cardiac valve disease unspecified Procedures ECHOCARDIOGRAM COMPLETE Mahogany Barrett MD [address] [place] [address] Phone: tel: fax: [address] [address] Phone: tel: Referral ID Status Reason Start Date Expiration Date Visits Requested Visits Authorized [id number] Pending Review Specialty Services Required 5 03/03/2026 1 1 Reason for Visit * Reason Comments ASHD (arteriosclerotic heart disease) Encounter Details Date Type Department Care Team (Late st Contact Info) Description 03/08/2025 10:20 AM PST Office Visit [facility] [id number] [facility], [place] [phone] Mahogany Barrett MD [facility] [address] [place] [address] [address] [place] [address] Persistent atrial fibrillation (CMS/HCC) (Primary Dx); Aortic valve stenosis, etiology of cardiac valve disease unspecified; ASHD (arteriosclerotic heart disease); S/P CABG x 5 Social History Tobacco Use Types Packs/Day Years Used Date Smoking Tobacco: Former Smokeless Tobacco: Never Alcohol Use Standard Drinks/Week Comments Yes 7 (1 standard drink = 0.6 oz pur e alcohol) AUDIT-C Answer Date Recorded Q1: How often do you have a drink containing alcohol? 4 or more times a week 02/27/2020 Q2: How many drinks containi ng alcohol do you have on a typical day when you are drinking? 1 or 2 0 Frequency of Binge Drinking Not on file 02/16 PHQ-2 Answer Date Recorded PHQ-2 Score 0 07/28/2022 Sex and Gender Information Value Date Recorded Sex Assigned at Not on file Legal Sex Male 9:23 AM PDT Gender Identity Not on file Sexual Orientation Not on file documented as of this encounter Last Filed Vital Signs Vital Sign Reading Time Taken Comments Blood Pressure 106/64 03/08/2025 10:05 AM PST Pulse 67 03/08/2025 10:05 AM PST Temperature - - Respiratory Rate - - Oxygen Saturation - - Inhaled Oxygen Concentration - - Weight 74.3 kg (163 lb 12.8 oz) 025 10:05 AM PST Height 172.7 cm (5' 8) 03/08/2025 10:0 5 AM PST Body Mass Index 24.91 03/08/2025 10:05 AM PST documented in this encounter Functional Status documented as of this encounter Progress Notes * Mahogany Barrett MD - 03/08/2025 10:20 AM PST Subjective Patient ID: Redd Lucio is a 74 y.o. male that presents today for had concerns including ASHD (arteriosclerotic heart disease). HPI: 74 yo M h/o CAD s/p CABG in 1999, PCI of SVG in 04/2016 and AF here for F/U on his heart issues. Patient is here by himself. Since his last visit, he had two AF recurrences that terminated with IV diltiazem at [facility]. He doesn't remember the ER visits or the details. He continues to work at [employer] and reports no symptoms while walking. Denies chest pain, dyspnea, lightheadedness,or syncope. PROBLEM LIST: # CAD s/p CABG 5V in 1999 (anatomy unavailable). s/p PCI of SVG to R-PDA in 04/2016 # Persistent AF s/p DCCV 02/2020 in the ER. s/p DCCV 11/22/2023 # Atrial flutter # HTN # Diabetes Fam Hx: Dad had MA in his 50s. Social History Socioeconomic History Marital status: Tobacco Use Smoking status: Former Smokeless tobacco: Never Substance and Sexual Activity Alcohol use: Yes Alcohol/week: 7.0 standard drinks of alcohol Types: 7 Glasses of wine per week Drug use: Never Social History Narrative Works at [employer] Enjoys working on his truck as his hobby Allergies Allergen Reactions Bee Venom Protein (Honey Bee) Amoxicillin Diarrhea 10/14/2023-charted; Rx'd amoxicillin and subsequently developed profuse diarrhea without severe abdominal pain or cramping about one week later. Current Medication List Sig atorvastatin (LIPITOR) 80 mg tablet Take 1 tablet (80 mg total) by mouth nightly carbidopa-levodopa (PARCOPA) 25-100 mg per disintegrating tablet Take 1 tablet by mouth 3 (three) times a day dabigatran etexilate (PRADAXA) 150 mg capsu Take 1 capsule (150 mg total) by mouth 2 (two) times a day ezetimibe (ZETIA) 10 mg tablet Take 1 tablet (10 mg total) by mouth every morning flash glucose scanning reader (FreeStyle Sangeetha 2 Goldsmith) muscogee Use to check blood sugar 4x daily flash glucose sensor (FreeStyle Sangeetha 2 Sensor) kit Use to check blood sugar 4x daily furosemide (LASIX) 20 mg tablet Take 1 tablet (20 mg total) by mouth as needed hydroCHLOROthiazide (HYDRODIURIL) 25 mg tablet Take 1 tablet (25 mg total) by mouth daily hydrOXYzine (ATARAX) 25 mg tablet Take 1 tablet (25 mg total) by mouth nightly as needed losartan (COZAAR) 100 mg tablet Take 1 tablet (100 mg total) by mouth nightly metoprolol succinate XL (TOPROL-XL) 25 mg 24 hr tablet Take 1 tablet (25 mg total) by mouth daily nitroglycerin (NITROSTAT) 0.[address] 1 tablet (0.3 mg total) under the tongue omeprazole (PriLOSEC) 20 mg capsule TAKE TWO CAPSULES BY MOUTH EVERY DAY . WORKS BEST IF TAKEN 30 MINUTES BEFORE A MEAL. terazosin (HYTRIN) 5 mg capsule Take 1 capsule (5 mg total) by mouth nightly triamcinolone (KENALOG) 0.1 % cream Apply topically sotaloL (BETAPACE) 160 mg tablet (Discontinued) Take 1 tablet (160 mg total) by mouth every 12 (twelve) hours sotaloL (BETAPACE) 160 mg tablet Take 1 tablet (160 mg total) by mouth every 12 (twelve) hours Review of Systems Constitutional: Negative for fatigue and unexpected weight change. Eyes: Negative for visual disturbance. Respiratory: Positive for shortness of breath. Negative for chest tightness. Cardiovascular: Positive for leg swelling. Negative for chest pain and palpitations. Gastrointestinal: Negative for blood in stool. Endocrine: Negative for polydipsia. Genitourinary: Negative for hematuria. Skin: Negative for rash. Neurological: Negative for dizziness, syncope, weakness and light-headedness. Hematological: Does not bruise/bleed easily. Psychiatric/Behavioral: The patient is not nervous/anxious. All other systems reviewed and are negative. Objective BP 106/64 (BP Location: Left arm, Patient Position: Sitting) Pulse 67 Ht 1.727 m Wt 74.3 kg BMI 24.91 kg/m?? Physical Exam: General appearance: No apparent distress, elderly, pleasant, cooperative HEET: Normocephalic atraumatic, no scleral icterus, tongue midline, mucous membranes moist Neck: supple Cardiovascular: RRR, normal S1 and normal S2, 2/6 systolic murmur, PMI nondisplaced, no JVD, trace peripheral edema Respiratory: Good aeration, CTAB Abdomen: Soft, nontender, nondistended, + bowel sounds Neuro: Alert, no facial droop, tongue midline, no gross motor deficits Psych: appropriate affect Skin: no rashes on face, neck, and lower extremities Stress echo 02/18/2022: Abnormal high risk study. Severely reduced exercise capacity (AMAURI 40%) with dynamic ST depressions in leads V4-V6 concerning for ischemia. Flat BP response. Mildly dilated LV with focal wall motion abnormalities consistent with prior infarction in PDA territory and bree-infarct ischemia. There is failure to achieve post-stress augmentation concerning for global ischemia. Echo 07/28/2022: 1) Normal left ventricular size and thickness with mildly reduced systolic function (EF 45-50%). 2) Basal inferior wall is akinetic. The basal to mid inferoseptum and basal inferolateral wall are hypokinetic. 3) The right ventricle is mildly dilated. Right ventricular systolic function is at the lower limits of normal. 4) There is mild aortic stenosis (valve area 1.7cm2, mean gradient 12mmHg). 5) Compared to the Echo done 02/27/2020, LVEF has decreased mildly on this study. Labs 06/26/2018: WBC 6.1, Hct 39.2, Plt 201, sodium 138, potassium 4.0, chloride 97, CO2 28, BUN 31,Cr 1.1, TG 278, TC 196, HDL 49, LDL 91, alb/Cr 62.3 Labs 07/2020: HbA1c 6.6% Labs 02/10/2021: WBC 6.0, Hematocrit 37.1, Plt 202, sodium 138, potassium 4.5, chloride 98 CO2 30, BUN 24, Cr 1.32, TG 225, TC 155, HDL 49, LDL 61 Labs 07/28/2022: sodium 139, potassium 4.8, chloride 101, cO2 31, BUN 29, Cr 1.21, HbA1c 6.6%, microalb/Cr 28 Labs 11/22/2023 ([facility]): WBC 15.5, Hct 31.1, Plt 259, sodium 135, potassium 4.7, chloride 104, CO2 28, BUN 20, Cr 1.07, Mg 1.8 Labs 03/04/2025: TC 130, TG 150, HDL 43, LDL 61, sodium 140, potassium 4.5, chloride 101, CO2 24, BUN 28, Cr 1.02, WBC 6.3, HCt 37.8, Plt 195 Assessment/Plan Comments: 1. Persistent atrial fibrillation (CMS/HCC) ECG 12 Lead (Clinic - Same Day), Basic metabolic panel,Complete blood count without diff 2. Aortic valve stenosis, etiology of cardiac valve disease unspecified ECHOCARDIOGRAM COMPLETE 3. ASHD (arteriosclerotic heart disease) 4. S/P CABG x 5 # CAD s/p CABG 5V in 1999 (anatomy unavailable). s/p PCI of SVG to R-PDA in 04/2016. No symptoms to suggest angina. LVEF normal on Echo 2019 and EF 45-50% on Echo 07/2022. Stress echo 02/2022 showed poor augmentation and this suggests obstructive CAD. Patient educated about his condition and favors medical management for now (unless dyspnea worsens and patient aware to call us). Plan: - Continue atorvastatin 80mg qhs - Continue ezetimibe 10mg qAM - Continue losartan 100mg at bedtime reduce microalbuminuria - Continue HCTZ 25mg daily - Restart jardiance 10mg daily if he has more leg edema. - Continue furosemide 20mg MWF. Keep legs elevated when in seated position and wear compression stockings. Goal will be take furosemide only as needed. - No cath for now per patient preference. # Persistent AF s/p DCCV 02/2020 in the ER (Mg of 1.4). Recurrence 11/22/2023 s/p DCCV (in the setting of several BMs and Mg 1.8). s/p AF recurrences X2 that terminated with IV diltiazem 12/2024. He hash/o atrial flutter as well. Plan: - Continue metoprolol XL 25mg daily - Continue sotalol 160mg bid - Continue pradaxa 150mg bid - We discussed AF ablation. Patient wants to hold off but will consider it if AF recurs # Aortic stenosis: mild on Echo 07/2022. - Repeat Echo ordered # HTN: as above # Diabetes: defer to PCP for management. F/U in 6 months with ECG and labs. Meds refilled. Phone call after echo. Electronically signed by Mahogany Barrett MD 03/08/2025 10:44 AM documented in this encounter Plan of Treatment Upcoming Encounters Date Type Department Care Team (Late st Contact Info) Description 09/05/2025 11:00 AM PDT Office Visit [facility] [address], [place] [address] Mahogany Barrett MD [address] [place] [address] [address] [place] [address] Scheduled Orders Name Type Priority Associated Diagnoses Orde r Schedule ECHOCARDIOGRAM COMPLETE Imaging Routine Aortic valve stenosis, etiology of cardiac valve disease unspecified Expected: 03/08/2025, Expires: 03/08/2027 Basic metabolic panel Lab Routine Persistent atrial fibrillation (CMS/HCC) Expected: 09/05/2025, Expires: 09/05/2026 Complete blood count without diff Lab Routine Persistent atrial fibrillation (CMS/HCC) Expected: 09/05/2025, Expires: 09/05/2026 documented as of this encounter Procedures Procedure Name Priority Date/Time Associated Diagnosis Comments ECG 12-LEAD Routine 03/08/2025 10:20 AM PST Persistent atrial fibrillation (CMS/HCC) documented in this encounter Results * ECG 12 Lead (Clinic - Same Day) (03/08/2025 10:20 AM PST) HR 67 bpm [facility] IECG RR 896 ms SR[facility] IECG NY 231 ms [facility] IECG QRSD 118 ms [facility] IECG QT 438 ms [facility] IECG QTc 463 ms [facility] IECG QRS 112 deg [facility] IECG T 22 deg [facility] IECG Impression - ABNORMAL ECG - [facility] IECG Impression Sinus or ectopic atrial rhythm [facility] IECG Impression Prolonged NY interval [facility] IECG Impression Nonspecific intraventricular conduction delay [facility] IECG 03/08/2025 10:2 0 AM PST Mahogany Barrett MD ECG ORDERABLES Final Result [facility] IECG documented in this encounter Visit Diagnoses Diagnosis Persistent atrial fibrillation (CMS/HCC)- Primary Atrial fibrillation Aortic valve stenosis, etiology of cardiac valve disease unspecified ASHD (arteriosclerotic heart disease) Coronary atherosclerosis of unspecified type of vessel, [place] or graft S/P CABG x 5 documented in this encounter Care Teams Lockstitch Tunnel Elastic Operator Relationship Specialty Start Date End Date Rex Anders MD [address] [place] [address] PCP - General Family Medicine 03/08/25 documented as of this encounter
--- OUTSIDE RECORDS SUMMARY | 2025-03-08 15:29 | XMS_ITS | Encounter Summary ---
Author Organization [facility] Address [address] [place] [address] Care Team Providers Care Ore Grader Name Role Phone Scooby Yost MD Primary Care Provider [phone] Encounter Details Date Type Department Care Team (Late st Contact Info) Description 03/01/2025 Telephone [facility] [address], [place] [address] Mahogany Barrett MD [address] [place] [address] [address] [place] [address] Social History Tobacco Use Types Packs/Day Years [...] on file documented as of this encounter Miscellaneous Notes * Telephone Encounter - Nati Karley Downs - 03/01/2025 4:30 PM PST Patient called requesting labwork be faxed to [facility]. Faxed to [phone] Thanks! documented in this encounter Plan of Treatment Upcoming Encounters Date Type Department Care Team (Late st Contact Info) Description 09/05/2025 11:00 AM PDT Office Visit [facility] [address], [place] [phone] Mahogany Barrett MD [address] [place] [address] [address] [place], [place] [phone] documented as of this encounter Visit Diagnoses Not on filedocumented in this encounter Care Teams Ore Grader Relationship Specialty Start Date End Date Scooby Yost MD PCP - General Family Medicine 07/28/22 03/07/25 documented as of this encounter
--- OUTSIDE RECORDS SUMMARY | 2025-03-08 15:30 | XMS_ITS | Encounter Summary ---
Author Organization [facility] Address [address] [place] [address] Care Team Providers Care Cemetery Workers Supervisor Name Role Phone Rex Anders MD Primary Care Provider [phone] Encounter Details Date Type Department Care Team (Late Contact Info) Description 03/01/2025 Abstract [facility] [address], [place] [address] Mahogany Barrett MD [address] [place] [address] [address] [place] [address] Social History Tobacco Use Types Packs/Day Years [...] on file documented as of this encounter Plan of Treatment Upcoming Encounters Date Type Department Care Team (Late Contact Info) Description 09/05/2025 11:00 AM PDT Office Visit [facility] [address], [place] [address] Mahogany Barrett MD [address] [place] [address] documented as of this encounter Visit Diagnoses Not on filedocumented in this encounter Care Teams Cemetery Workers Supervisor Relationship Specialty Start Date End Date Rex Anders MD [address], [place] [address] PCP - General Family Medicine 03/08/25 documented as of this encounter
--- OUTSIDE RECORDS SUMMARY | 2025-03-08 15:30 | XMS_ITS | Encounter Summary ---
Author Organization [facility] Address [address] [place] [address] Care Team Providers Care Geodetic Technician Name Role Phone Rex Anders MD Primary Care Provider [phone] Encounter Details Date Type Department Care Team (Late Contact Info) Description 05/27/2022 Orders Only [facility] [address], [address] [address] Mahogany Barrett MD [address] [place] [address] ASHD (arteriosclerotic heart disease); Diabetes mellitus type II, non insulin dependent ([facility]) Social History Tobacco Use Types Packs/Day Years Used Date Smoking Tobacco: Former Smokeless Tobacco: Never Alcohol Use Standard Drinks/Week Comments Yes 0 (1 standard drink = 0.6 oz pur e alcohol) AUDIT-C Answer Date Recorded Q1: How often do you have a drink containing alcohol? 4 or more times a week 02/27/2020 Q2: How many drinks containi ng alcohol do you have on a typical day when you are drinking? 1 or 2 0 Frequency of Binge Drinking Not on file 02/16 Sex and Gender Information Value Date Recorded Sex Assigned at Not on file Legal Sex Male 9:23 AM PDT Gender Identity Not on file Sexual Orientation Not on file documented as of this encounter Plan of Treatment Upcoming Encounters Date Type Department Care Team (Late Contact Info) Description 09/05/2025 11:00 AM PDT Office Visit [facility] [address] [place] [phone] Mahogany Barrett MD [address] [place] [address] [address] [place], [place] [id number] documented as of this encounter Procedures Procedure Name Priority Date/Time Associated Diagnosis Comments MICROALBUMIN/CREATI NINE RATIO, URINE Routine 05/26/2022 7:56 AM PST Diabetes mellitus type II, non insulin dependent (CMS/HCC) COMPLETE BLOOD COUNT Routine 05/26/2022 7:56 AM PST ASHD (arteriosclerotic heart disease) LIPID PANEL Routine 05/26/2022 7:56 AM PST ASHD (arteriosclerotic heart disease) BASIC METABOLIC PANEL Routine 05/26/2022 7:56 AM PST ASHD (arteriosclerotic heart disease) documented in this encounter Results * Microalbumin/creatinine ratio, urine (05/26/2022 7:56 AM PST) Creatinine, Urine 149.8 Not Estab. mg/dL [facility] 001 Urine Microalbumin 29.4 Not Estab. ug/mL [facility] 001 Microalbumin/Crea tinine, ratio 20 0 - 29 mg/g creat [facility] 001 Comment: Normal: 0 - 29 Moderately increased: 30 - 300 Severely increased: >300 Urine Urine specimen obtained by clean catch procedure / Unknown 05/26/2022 7:56 AM PST 05/25/2022 9:00 PM PST Narrative [facility] - 05/27/2022 9:09 AM PST Performed at: 01 - [facility] [address] [address], [place], [place] [id number] Bowling Ball Grader And Marker: Partha Hart MD, Phone: [phone] Mahogany Barrett MD LAB URINE ORDERABLES Final R esult [facility] [place] [address] [address] [facility] [address] [place] [address], [facility] 001 * Lipid panel (05/26/2022 7:56 AM PST) Pathologist [facility] Cholesterol, Total 122 100 - 199 mg/dL [facility] 001 Triglycerides 125 0 - 149 mg/dL [facility] 001 HDL Cholesterol 47 >39 mg/dL [facility] 001 VLDL Cholesterol 22 5 - 40 mg/dL [facility] 001 LDL Cholesterol 53 0 - 99 mg/dL [facility] 001 Blood Venous blood / Unknown 05/26/2022 7:56 AM PST 05/25/2022 9:00 PM PST [facility]ative [facility] - 05/27/2022 9:09 AM PST Performed at: 01 - [address] [id number] Bowling Ball Grader And Marker: Partha Hart MD, Phone: [phone] Mahogany Barrett MD LAB BLOOD ORDERABLES Final R esult [facility] [address], [facility] 001 * (ABNORMAL) Basic metabolic panel (05/26/2022 7:56 AM PST) Pathologist [facility] Glucose 155(H) 70 - 99 mg/dL [facility] 001 BUN 29(H) 8 - 27 mg/dL [facility] 001 Creatinine 1.36(H) 0.76 - 1.27 mg/dL [facility] 001 eGFR (CKD-EPI 2020) 55(L) >59 mL/min/1.7 3 [facility] 001 BUN/Creatinine Ratio 21 10 - 24 [facility] 001 Sodium 139 134 - 144 mmol/L [facility] 001 Potassium 4.6 3.5 - 5.2 mmol/L [facility] 001 Chloride 101 96 - 106 mmol/L [facility] 001 CO2 24 20 - 29 mmol/L [facility] 001 Calcium 9.1 8.6 - 10.2 mg/dL [facility] 001 Blood Venous blood / Unknown 05/26/2022 7:56 AM PST 05/25/2022 9:00 PM PST Narrative [facility] - 05/27/2022 9:09 AM PST Performed at: [facility] [id number] Bowling Ball Grader And Marker: Partha Hart MD, Phone: [phone] Mahogany Barrett MD LAB BLOOD ORDERABLES Final R esult [facility] [address], [facility] 001 * (ABNORMAL) Complete blood count (05/26/2022 7:56 AM PST) Pathologist [facility] WBC 6.3 3.4 - 10.8 x10E3/uL [facility] 001 RBC 3.95(L) 4.14 - 5.80 x10E6/uL [facility] 001 Hemoglobin 12.5(L) 13.0 - 17.7 g/dL [facility] 001 Hematocrit 37.3(L) 37.5 - 51.0 % [facility] 001 MCV 94 79 - 97 fL [facility] 001 MCH 31.6 26.6 - 33.0 pg [facility] 001 MCHC 33.5 31.5 - 35.7 g/dL [facility] 001 RDW 11.8 11.6 - 15.4 % [facility] 001 Platelet Count 201 150 - 450 x10E3/uL [facility] 001 Blood Venous blood / Unknown 05/26/2022 7:56 AM PST 05/25/2022 9:00 PM PST Narrative [facility] - 05/27/2022 9:09 AM PST Performed at: [facility] [id number] Bowling Ball Grader And Marker: Partha Hart MD, Phone: [phone] Specimen Comment: A duplicate report has been generated due to demographic updates. Mahogany Barrett MD LAB BLOOD ORDERABLES Final R esult [facility] [address] [place] [address], [facility] 001 documented in this encounter Visit Diagnoses Diagnosis ASHD (arteriosclerotic heart disease) Coronary atherosclerosis of unspecified type of vessel, [place] or graft Diabetes mellitus type II, non insulin dependent ([facility]/HCC) Type II or unspecified type diabetes mellitus without mention of complication, not stated as uncontrolled documented in this encounter Care Teams Geodetic Technician Relationship Specialty Start Date End Date Rex Anders MD [address] [place] [address] PCP - General Family Medicine 03/08/25 documented as of this encounter
--- OUTSIDE RECORDS SUMMARY | 2025-03-08 15:30 | XMS_ITS | Encounter Summary ---
Author Organization [facility] Address [address] [place] [address] Care Team Providers Care Wire Chief Name Role Phone Rex Anders MD Primary Care Provider [phone] Encounter Details Date Type Department Care Team (Late Contact Info) Description 11/22/[address] [facility] Cardiology [address], [address] [address] Mahogany Barrett MD [address] [place] [address] Social History Tobacco Use Types Packs/Day Years [...] on file documented as of this encounter Functional Status documented as of this encounter Plan of Treatment Upcoming Encounters Date Type Department Care Team (Late st Contact Info) Description 09/05/2025 11:00 AM PDT Office Visit [facility] Cardiology [address] [place] [phone] Mahogany Barrett MD [address] [place] [address] documented as of this encounter Visit Diagnoses Not on filedocumented in this encounter Care Teams Wire Chief Relationship Specialty Start Date End Date Rex Anders MD [address] [place] [address] PCP - General Family Medicine 03/08/25 documented as of this encounter
--- OUTSIDE RECORDS SUMMARY | 2025-03-08 15:30 | XMS_ITS | Clinical Summary ---
Author Organization [facility] Address [address] [address] Care Team Providers Care Plumber And Tinner Name Role Phone Unavailable Primary Care Provider Unavailabl e Social History Tobacco Use Types Packs/Day Years Used Date Smoking Tobacco: Never Assessed Sex and Gender Information Value Date Recorded Sex Assigned at Not on file Legal Sex Male 9:20 AM PST Gender Identity Not on file Sexual Orientation Not on file Plan of Treatment Not on file Insurance [facility]
--- OUTSIDE RECORDS SUMMARY | 2025-03-08 15:30 | XMS_ITS | Encounter Summary ---
Author Organization [facility] Address [address] [place] [address] Care Team Providers Care Administrative Director Name Role Phone Rex Anders MD Primary Care Provider [phone] Encounter Details Date Type Department Care Team (Late Contact Info) Description 05/27/2022 Abstract [facility] Cardiology [address], [place] [address] Mahogany Barrett MD [address] [place] [address] [address] [place], [place] [id number] Social History Tobacco Use Types Packs/Day Years [...] Description 09/05/2025 11:00 AM PDT Office Visit [facility] Cardiology [place] [address] [facility], [place] [address] Mahogany Barrett MD [address] [place] [address] [address] [place] [address] documented as of this encounter Visit Diagnoses Not on filedocumented in this encounter Care Teams Administrative Director Relationship Specialty Start Date End Date Rex Anders MD [facility] [address] [place] [address] PCP - General Family Medicine 03/08/25 documented as of this encounter
--- OUTSIDE RECORDS SUMMARY | 2025-03-08 15:30 | XMS_ITS | Clinical Summary ---
Author Organization [facility] Address [address] [place] [address] Care Team Providers Care Internet Marketing Analyst Name Role Phone Unavailable Primary Care Provider Unavailabl e Social History Tobacco Use Types Packs/Day Years Used Date Smoking Tobacco: Never Assessed Sex and Gender Information Value Date Recorded Sex Assigned at Not on file Legal Sex Male 4:03 PM PDT Gender Identity Not on file Sexual Orientation Not on file Plan of Treatment Health Maintenance Due Date Last Done Comments Hepatitis C Screening 1950 Depression Screening (PHQ-2) 1960 Medicare Annual Wellness Visit 1966 DTaP, Tdap and Td Vaccines ( 1 - Tdap) 09/25/1967 Lipid Disorders Screening 09/25/1983 Pneumococcal Vaccine: 50+ Ye ars (1 of 1 - PCV) 1998 Zoster Vaccine (1 of 2) 1998 RSV Vaccine (1 - 1-dose 75+ series) 09/25/2023 COVID-19 Vaccine ( - 2024-2 6 season) 2024 Influenza Vaccine (#1) 2025 HPV Vaccine Aged Out No longer eligi ble based on patient's age to complete this topic Meningococcal B Vaccine Aged Out No l onger eligible based on patient's age to complete this topic Insurance [facility] MEDICARE
--- OUTSIDE RECORDS SUMMARY | 2025-03-08 15:30 | XMS_ITS | Encounter Summary ---
Author Organization [facility] Address [address] [place] [address] Care Team Providers Care Machine Filler Name Role Phone Rex Anders MD Primary Care Provider [phone] Reason for Visit * Reason Comments Med Refill Encounter Details Date Type Department Care Team (Late Contact Info) Description 05/12/2023 Refill [facility] FAMILY [facility]IC[facility] [place] [address] [place] [address] [place] [address] [place], [place] [id number] Gastroesophageal reflux disease, unspecified whether esophagitis present Social History Tobacco Use Types Packs/Day Years [...] Description 09/05/2025 11:00 AM PDT Office Visit [facility] [place] Cardiology [address], [place] [address] Mahogany Barrett MD [address] [place] [address] [address] [place] [address] documented as of this encounter Visit Diagnoses Diagnosis Gastroesophageal reflux disease, unspecified whether esophagitis present documented in this encounter Care Teams Machine Filler Relationship Specialty Start Date End Date Rex Anders MD [address] [place] [address] PCP - General Family Medicine 03/08/25 documented as of this encounter
--- OUTSIDE RECORDS SUMMARY | 2025-03-08 15:30 | XMS_ITS | Encounter Summary ---
Author Organization [facility] Address [address] [place] [address] Care Team Providers Care Weave Room Supervisor Name Role Phone Rex Anders MD Primary Care Provider [phone] Encounter Details Date Type Department Care Team (Late st Contact Info) Description 08/30/2024 Abstract [facility] Neurology [place] [address] [facility] [address] [place] [address] Javier Berger MD Social History Tobacco Use Types Packs/Day Years [...] Description 09/05/2025 11:00 AM PDT Office Visit [facility] Cardiology [address], [place] [address] Mahogany Barrett MD [facility] [address] [place] [address] [address] [place] [address] documented as of this encounter Visit Diagnoses Not on filedocumented in this encounter Care Teams Weave Room Supervisor Relationship Specialty Start Date End Date Rex Anders MD [address] [place] [address] PCP - General Family Medicine 03/08/25 documented as of this encounter
--- OUTSIDE RECORDS SUMMARY | 2025-03-08 15:30 | XMS_ITS | Encounter Summary ---
Author Organization [facility] Address [address] [place] [address] Care Team Providers Care Stove Cleaner Name Role Phone Rex Anders MD Primary Care Provider [phone] Encounter Details Date Type Department Care Team (Late Contact Info) Description 03/23/2022 Orders Only [facility] Cardiology [address], [place] [address] Mahogany Barrett MD [address] [place] [address] [address] [place] [address] ASHD (arteriosclerotic heart disease) Social History Tobacco Use Types Packs/Day Years [...] Description 09/05/2025 11:00 AM PDT Office Visit [facility] Cardiology [address], [place] [address] Mahogany Barrett MD [address] [place] [address] [address] [place], [place] [id number] documented as of this encounter Procedures Procedure Name Priority Date/Time Associated Diagnosis Comments BASIC METABOLIC PANEL Routine 03/22/2022 8:23 AM PST ASHD (arteriosclerotic heart disease) documented in this encounter Results * (ABNORMAL) Basic metabolic panel (03/22/2022 8:23 AM PST) Glucose 137(H) 70 - 99 mg/dL [facility] 001 BUN 28(H) 8 - 27 mg/dL [facility] 001 Creatinine 1.09 0.76 - 1.27 mg/dL [facility] 001 eGFR (CKD-EPI 2020) 72 >59 mL/min/1.7 3 [facility] 001 BUN/Creatinine Ratio 26(H) 10 - 24 [facility] 001 Sodium 139 134 - 144 mmol/L [facility] 001 Potassium 4.9 3.5 - 5.2 mmol/L [facility] 001 Chloride 102 96 - 106 mmol/L [facility] 001 CO2 21 20 - 29 mmol/L [facility] 001 Calcium 9.4 8.6 - 10.2 mg/dL [facility] 001 Blood Venous blood / Unknown 03/22/2022 8:23 AM PST 03/21/2022 9:00 PM PST Narrative [facility] [place] - 03/23/2022 8:09 AM PST Performed at: 01 - [facility] [place] [address], [place], [place] [id number] [employer] Tech: Partha Hart MD, Phone: [phone] Specimen Comment: A courtesy copy of this report has been sent to [phone] Specimen Comment: A duplicate report has been generated due to demographic updates. Mahogany Barrett MD LAB BLOOD ORDERABLES Final R esult [facility] [place] [address] [address] [place] [facility] [address] [place] [address], [facility] 001 documented in this encounter Visit Diagnoses Diagnosis ASHD (arteriosclerotic heart disease) Coronary atherosclerosis of unspecified type of vessel, [place] or graft documented in this encounter Care Teams Stove Cleaner Relationship Specialty Start Date End Date Rex Anders MD [address] [place] [address] PCP - General Family Medicine 03/08/25 documented as of this encounter
--- OUTSIDE RECORDS SUMMARY | 2025-03-08 15:30 | XMS_ITS | Encounter Summary ---
Author Organization [facility] Address [address] [place] [address] Care Team Providers Care Roll Over Loader Name Role Phone Rex Anders MD Primary Care Provider [phone] Encounter Details Date Type Department Care Team (Late Contact Info) Description 09/07/2023 Abstract [facility] Cardiology [address], [place] [address] Mahogany Barrett MD [address] [place] [address] [address] [place] [address] Social History Tobacco Use Types Packs/Day Years [...] Description 09/05/2025 11:00 AM PDT Office Visit [facility] Cardiology [address], [place] [address] Mahogany Barrett MD [address] [place] [address] documented as of this encounter Visit Diagnoses Not on filedocumented in this encounter Care Teams Roll Over Loader Relationship Specialty Start Date End Date Rex Anders MD [address], [place] [address] PCP - General Family Medicine 03/08/25 documented as of this encounter
--- OUTSIDE RECORDS SUMMARY | 2025-03-08 15:30 | XMS_ITS | Encounter Summary ---
Author Organization [facility] Address [address] [place] [address] Care Team Providers Care Community Center Director Name Role Phone Rex Anders MD Primary Care Provider [phone] Reason for Visit * Reason Onset Date Comments Disregard 04/01/2020 Encounter Details Date Type Department Care Team (Late st Contact Info) Description 04/01/2020 Telephone [facility] [place] [address] [place] [address] [facility] [address] [place] [address] Disregard Social History Tobacco Use Types Packs/Day Years [...] encounter Miscellaneous Notes * Telephone Encounter - Noemí Steiner RN - 04/01/2020 2:14 PM PST reservations and ticketing agent advised to have pt addressed his concern to his Pcp. Pt was seen by resident in the inpatient. * Telephone Encounter - Yulissa Mckeon - 04/01/2020 2:07 PM PST Disregard documented in this encounter Plan of Treatment Upcoming Encounters Date Type Department Care Team (Late st Contact Info) Description 09/05/2025 11:00 AM PDT Office Visit [facility] Cardiology [address], [place] [address] Mahogany Barrett MD [address] [place] [address] [address] [place] [address] documented as of this encounter Visit Diagnoses Not on filedocumented in this encounter Care Teams Community Center Director Relationship Specialty Start Date End Date Rex Anders MD [address] [place] [address] PCP - General Family Medicine 03/08/25 documented as of this encounter
--- OUTSIDE RECORDS SUMMARY | 2025-03-08 15:30 | XMS_ITS | Encounter Summary ---
Author Organization [facility] Address [address] [place] [address] Care Team Providers Care Kettleman Name Role Phone Rex Anders MD Primary Care Provider [phone] Encounter Details Date Type Department Care Team (Late Contact Info) Description 11/12/2020 Abstract [facility] Health Information Management [address] [place] [address] [employer] Senior Bi Developer, Provider, Social History Tobacco Use Types Packs/Day Years [...] AM PDT Office Visit [facility] Cardiology [address], [place] [phone] Mahogany Barrett MD [address] [place] [address] [address] [place] [address] documented as of this encounter Procedures Procedure Name Priority Date/Time Associated Diagnosis Comments LIPID PANEL Routine 02/10/2021 HEMOGLOBIN A1C Routine 07/30/2020 documented in this encounter Results * Lipid panel (02/10/2021) External LDL Cholesterol 61 mg/dL Blood Venous blood / Unknown Historical Provider MD LAB BLOOD ORDERABLES Kaley l Result * Hemoglobin A1c (07/30/2020) External Hemoglobin A1c 6.6 % Blood Venous blood / Unknown [facility] Provider LAB BLOOD ORDERABLES Kaley l Result documented in this encounter Visit Diagnoses Not on filedocumented in this encounter Care Teams Kettleman Relationship Specialty Start Date End Date Rex Anders MD [address] [place] [address] PCP - General Family Medicine 03/08/25 documented as of this encounter
--- OUTSIDE RECORDS SUMMARY | 2025-03-08 15:30 | XMS_ITS | Encounter Summary ---
Author Organization [facility] Address [address] [place] [address] Care Team Providers Care Healthcare Technician Name Role Phone Rex Anders MD Primary Care Provider [phone] Encounter Details Date Type Department Care Team (Late Contact Info) Description 02/15/2023 Orders Only [facility] Cardiology [address], [place] [address] [place] [address] [place], [place] [id number] Leg edema Social History Tobacco Use Types Packs/Day Years [...] Description 09/05/2025 11:00 AM PDT Office Visit [facility] Cardiology [address], [place] [address] [place] [address] Mahogany Barrett MD [address] [place] [address] [address] [place] [address] documented as of this encounter Procedures Procedure Name Priority Date/Time Associated Diagnosis Comments BASIC METABOLIC PANEL Routine 02/14/2023 10:29 AM PDT Leg edema documented in this encounter Results * (ABNORMAL) Basic Metabolic Panel (02/14/2023 10:29 AM PDT) Glucose 127(H) 70 - 99 mg/dL [facility] 001 BUN 21 8 - 27 mg/dL [facility] 001 Creatinine 1.22 0.76 - 1.27 mg/dL [facility] 001 eGFR (CKD-EPI 2020) 62 >59 mL/min/1.7 3 [facility] 001 BUN/Creatinine Ratio 17 10 - 24 [facility] 001 Sodium 138 134 - 144 mmol/L [facility] 001 Potassium 4.7 3.5 - 5.2 mmol/L [facility] 001 Chloride 99 96 - 106 mmol/L [facility] 001 CO2 25 20 - 29 mmol/L [facility] 001 Calcium 9.6 8.6 - 10.2 mg/dL [facility] 001 Blood Venous blood / Unknown 02/14/2023 10:29 AM PDT 02/13/2023 9:00 PM PDT Narrative [facility] [place] - 02/15/2023 4:08 AM PDT Performed at: 01 - [facility] [place] [address], [place], [place] [id number] Visual Inspector: Partha Hart MD, Phone: [phone] us Scooby Yost MD LAB BLOOD ORDERABLES Final Resul t [facility] [address] [address], [place] [phone] [facility] 001 documented in this encounter Visit Diagnoses Diagnosis Leg edema Edema documented in this encounter Care Teams Healthcare Technician Relationship Specialty Start Date End Date Rex Anders MD [address] [place] [address] PCP - General Family Medicine 03/08/25 documented as of this encounter
--- OUTSIDE RECORDS SUMMARY | 2025-03-08 15:30 | XMS_ITS | Clinical Summary ---
Author Organization [facility] Address [address] [place] [address] Care Team Providers Care Motor Man Name Role Phone Rex Anders MD Primary Care Provider [phone] Allergies Active Allergy Reactions Criticality Noted Date Comments Amoxicillin Diarrhea Low 01/01/2025 10/14/2023-charted; Rx'd amoxicillin and subsequently developed profuse diarrhea without severe abdominal pain or cramping about one week later. Bee Venom Protein (Honey Bee) 05/09/2018 Medications flash glucose scanning reader (FreeStyle Sangeetha 2 [place]) miscIndications:T ype 2 diabetes mellitus without complication, without long-term current use of insulin ([facility]) Use to check blood sugar 4x daily 1 each 11/02/19 23 Active Additional Information Patient taking differently: Weekly, (No instructions reported), Reported on 03/08/2025 flash glucose sensor (FreeStyle Sangeetha 2 Sensor) kitIndications:Ty pe 2 diabetes mellitus without complication, without long-term current use of insulin ([facility]) Use to check blood sugar 4x daily 2 kit 11 11/02/19 23 Active terazosin (HYTRIN) 5 mg capsule Take 1 capsule (5 mg total) by mouth nightly 90 capsule 08/18/19 24 Active omeprazole (PriLOSEC) 20 mg capsuleIndication s:Gastroesophagea l reflux disease, unspecified whether esophagitis present TAKE TWO CAPSULES BY MOUTH EVERY DAY . WORKS BEST IF TAKEN 30 MINUTES BEFORE A MEAL. 180 capsule 09/19/19 24 Active carbidopa-levodop a (PARCOPA) 25-100 mg per disintegrating tabletIndications :Benign essential tremor,Tremors of nervous system Take 1 tablet by mouth 3 (three) times a day 270 tablet 1 11/15/19 25 Active atorvastatin (LIPITOR) 80 mg tablet Take 1 tablet (80 mg total) by mouth nightly 90 tablet 1 12/06/19 25 Active dabigatran etexilate (PRADAXA) 150 mg capsu Take 1 capsule (150 mg total) by mouth 2 (two) times a day 180 capsule 1 12/06/19 25 026 Active ezetimibe (ZETIA) 10 mg tablet Take 1 tablet (10 mg total) by mouth every morning 90 tablet 1 12/06/19 25 Active hydroCHLOROthiazi de (HYDRODIURIL) 25 mg tablet Take 1 tablet (25 mg total) by mouth daily 90 tablet 1 12/06/19 25 Active losartan (COZAAR) 100 mg tablet Take 1 tablet (100 mg total) by mouth nightly 90 tablet 1 12/06/19 25 026 Active metoprolol succinate XL (TOPROL-XL) 25 mg 24 hr tablet Take 1 tablet (25 mg total) by mouth daily 90 tablet 1 12/06/19 25 026 Active furosemide (LASIX) 20 mg tablet Take 1 tablet (20 mg total) by mouth as needed 12/19/19 25 Active hydrOXYzine (ATARAX) 25 mg tablet Take 1 tablet (25 mg total) by mouth nightly as needed 11/22/19 25 Active triamcinolone (KENALOG) 0.1 % cream Apply topically 11/01/19 25 Active nitroglycerin (NITROSTAT) 0.[address] 1 tablet (0.3 mg total) under the tongue 11/23/19 25 Active sotaloL (BETAPACE) 160 mg tablet Take 1 tablet (160 mg total) by mouth every 12 (twelve) hours 180 tablet 3 03/08/20 25 026 Active primidone (MYSOLINE) 50 mg tabletIndications :Benign essential tremor,Tremors of nervous system Take 1 tablet (50 mg total) by mouth nightly 90 tablet 11/15/19 25 025 sotaloL (BETAPACE) 160 mg tablet Take 1 tablet (160 mg total) by mouth every 12 (twelve) hours 180 tablet 1 12/08/19 25 025 Discontinu ed(Reorder ) Active Problems Problem Noted Date Diagnosed Date Chronic atrial fibrillation 07/28/2022 CHF (congestive heart failure) Encounters Date Type Department Care Team Description 03/08/2025 10:20 AM PST Office Visit [facility] Cardiology [address], [place] [phone] Mahogany Barrett MD Persistent atrial fibrillation (CMS/HCC) (Primary Dx); Aortic valve stenosis, etiology of cardiac valve disease unspecified; ASHD (arteriosclerotic heart disease); S/P CABG x 5 03/05/[address] [facility] Cardiology [address], [address] [place] [phone] Mahogany Barrett MD ASHD (arteriosclerotic heart disease) 03/01/[address] [facility] Cardiology [address], [place] [phone] Mahogany Barrett MD 03/01/[address] [facility] Cardiology [address], [place] [phone] Mahogany Barrett MD 01/02/[address] [facility] Cardiology [address], [place] [phone] Mahogany Barrett MD from Last 3 Months Immunizations Immunization Administration Dates Next Due FLU High Dose 65+ Trivalent, PF (FLUZONE) 2018,02/10/2018 FLU PF 6+Mos Trivalent 0.5ML (Fluzone, FluLaval, Fluarix) 02/22/2022,03/26/2021,04/30/2017 Moderna Covid Vaccine Monovalent 12/02/2021,12/0 12/2020 Nliwim-LHEE-KoO-2 Vaccine 07/16/2020,06/25/2020 Pneumococcal Conjugate PCV13 (Lvcbfss90) 021 Pneumococcal Polysaccharide PPV23 (Nevtpyczd25) 04/23/2021 Family History Medical History Relation Comments Heart attack Father Relation Status Comments Father Social History Tobacco Use Types Packs/Day Years Used Date Smoking Tobacco: Former Smokeless Tobacco: Never Tobacco Cessation:Counseling Given: Not Answered Alcohol Use Standard Drinks/Week Comments Yes 7 [...] on file Sexual Orientation Not on file Last Filed Vital Signs Vital Sign Reading Time Taken Comments Blood Pressure 106/64 03/08/2025 10:05 AM PST Pulse 67 03/08/2025 10:05 AM PST Temperature 36.3 C (97.4 F) 02/28/2020 11:00 AM PST Respiratory Rate 18 02/28/2020 11:0 0 AM PST Oxygen Saturation 98% 11/04/2022 10: 36 AM PDT Inhaled Oxygen Concentration - - Weight 74.3 kg (163 lb 12.8 oz) 025 10:05 AM PST Height 172.7 cm (5' 8) 03/08/2025 10:0 5 AM PST Body Mass Index 24.91 03/08/2025 10:05 AM PST Plan of Treatment Upcoming Encounters Date Type Department Care Team (Late st Contact Info) Description 09/05/2025 11:00 AM PDT Office Visit [facility] Cardiology [address], [place] [address] Mahogany Barrett MD [address] [place] [address] [address] [place] [address] Health Maintenance Due Date Last Done Comments Diabetic Eye Exam 1948 Diabetic Foot Exam 1958 DTaP,Tdap,and Td Vaccines (1 - Tdap) 09/25/1967 Zoster Vaccines (1 of 2) 1998 Hemoglobin A1C 01/27/2023 07/28/2022, 10/2021, 07/30/2020, Additional history exists Depression Screening (PHQ-2) 07/29/2023 07/28/2022 Diabetes Urine Protein Screening 07/29/2023 07/28/2022, 05/26/2022 Fall Risk Screening 07/29/2023 07/28/2022 RSV Patients Over 60 years OR qualifying ( Patients) (1 - 1-dose 75+ series) 09/25/2023 COVID-19 Vaccine ( - season) 2024 03/19/2024, 12/02/2021, 03/26/2021, Additional history exists Influenza Vaccine (#1) 2025 , 03/19/2024, 02/20/2023, Additional history exists HM Pneumococcal Adult 50+ Completed 04/23/2021, HM Pneumococcal Combined Age 0-49 Discontinued 04/23/2021, 05/13/2020 HPV Vaccines Aged Out No longer eligi ble based on patient's age to complete this topic Hepatitis A Vaccines Aged Out No long er eligible based on patient's age to complete this topic Hepatitis B Vaccines Aged Out No long er eligible based on patient's age to complete this topic IPV Vaccines Aged Out No longer eligi ble based on patient's age to complete this topic MMR Vaccines Aged Out No longer eligi ble based on patient's age to complete this topic Procedures Procedure Name Priority Date/Time Associated Diagnosis Comments ECG 12-LEAD Routine 03/08/2025 10:20 AM PST Persistent atrial fibrillation (CMS/HCC) COMPLETE BLOOD COUNT Routine 03/04/2025 7:43 AM PST ASHD (arteriosclerotic heart disease) LIPID PANEL Routine 03/04/2025 7:43 AM PST ASHD (arteriosclerotic heart disease) BASIC METABOLIC PANEL Routine 03/04/2025 7:43 AM PST ASHD (arteriosclerotic heart disease) ECG EXTERNAL RESULTS 01/02/2025 ECG EXTERNAL RESULTS 01/01/2025 XR EXTERNAL RESULTS 01/01/2025 ECG EXTERNAL RESULTS 12/31/2024 HEMOGLOBIN A1C Routine 07/28/2022 11:27 AM PDT Type 2 diabetes mellitus with chronic kidney disease, without long-term current use of insulin, unspecified CKD stage ([facility]) MICROALBUMIN/CREATI NINE RATIO, URINE Routine 07/28/2022 11:27 AM PDT Type 2 diabetes mellitus with chronic kidney disease, without long-term current use of insulin, unspecified CKD stage ([facility]) from Last 3 Months or Most Recently Relevant to Health Maintenance Results * ECG 12 Lead (Clinic - Same Day) (03/08/2025 10:20 AM [facility]) HR 67 bpm [facility] IECG RR 896 ms SRH IECG IA 231 ms [facility] IECG QRSD 118 ms [facility] IECG QT 438 ms [facility] IECG QTc 463 ms [facility] IECG QRS 112 deg [facility] IECG T 22 deg [facility] IECG Impression - ABNORMAL ECG - [facility] IECG Impression Sinus or ectopic atrial rhythm [facility] IECG Impression Prolonged IA interval [facility] IECG Impression Nonspecific intraventricular conduction delay [facility] IECG 03/08/2025 10:2 0 AM [facility] us Mahogany Barrett MD ECG ORDERABLES Final Result [facility] IECG * (ABNORMAL) Complete blood count without diff (03/04/2025 7:43 AM PST) WBC 6.3 3.4 - 10.8 x10E3/uL [facility] 001 RBC 3.81(L) 4.14 - 5.80 x10E6/uL [facility] 001 Hemoglobin 12.3(L) 13.0 - 17.7 g/dL [facility] 001 Hematocrit 37.8 37.5 - 51.0 % [facility] 001 MCV 99(H) 79 - 97 fL [facility] 001 MCH 32.3 26.6 - 33.0 pg [facility] 001 MCHC 32.5 31.5 - 35.7 g/dL [facility] 001 RDW 11.8 11.6 - 15.4 % [facility] 001 Platelet Count 195 150 - 450 x10E3/uL [facility] 001 Blood Venous blood / Unknown 03/04/2025 7:43 AM PST 03/03/2025 9:00 PM PST N[facility]ative [facility] 03/05/2025 1:07 AM PST Performed at: [address] [place] [address], [place], [place] [id number] Audio/Video Engineer: Partha Hart MD, Phone: [phone] Mahogany Barrett MD LAB BLOOD ORDERABLES Final R esult [address] [address], [facility] 001 * (ABNORMAL) Lipid panel (03/04/2025 7:43 AM PST) [facility] Cholesterol, Total 130 100 - 199 mg/dL [facility] 001 Triglycerides 150(H) 0 - 149 mg/dL [facility] 001 HDL Cholesterol 43 >39 mg/dL [facility] 001 VLDL Cholesterol 26 5 - 40 mg/dL [facility] 001 LDL Cholesterol 61 0 - 99 mg/dL [facility] 001 Blood Venous blood / Unknown 03/04/2025 7:43 AM PST 03/03/2025 9:00 PM PST Narrative [facility] 03/05/2025 3:07 AM PST Performed at: [facility] [address], [address], [place], [place] [id number] Audio/Video Engineer: Partha Hart MD, Phone: [phone] Mahogany Barrett MD LAB BLOOD ORDERABLES Final R esult [place] [address] [place] [address], [facility] 001 * (ABNORMAL) Basic metabolic panel (03/04/2025 7:43 AM PST) Pathologist [facility] Glucose 149(H) 70 - 99 mg/dL [facility] 001 BUN 28(H) 8 - 27 mg/dL [facility] 001 Creatinine 1.02 0.76 - 1.27 mg/dL [facility] 001 eGFR (CKD-EPI 2020) 76 >59 mL/min/1.7 3 [facility] 001 BUN/Creatinine Ratio 27(H) 10 - 24 [facility] 001 Sodium 140 134 - 144 mmol/L [facility] 001 Potassium 4.5 3.5 - 5.2 mmol/L [facility] 001 Chloride 101 96 - 106 mmol/L [facility] 001 CO2 24 20 - 29 mmol/L [facility] 001 Calcium 9.7 8.6 - 10.2 mg/dL [facility] 001 Blood Venous blood / Unknown 03/04/2025 7:43 AM PST 03/03/2025 9:00 PM PST Narrative [facility] - 03/05/2025 3:07 AM PST Performed at: - [place] [address] [address] [place], [address], [place], [place] [id number] Audio/Video Engineer: Partha Hart MD, Phone: [phone] Specimen Comment: A courtesy copy of this report has been sent to [phone] Mahogany Barrett MD LAB BLOOD ORDERABLES Final R esult Performing Organization Address City/[facility]/ZIP Co de Phone Number [facility] [address] [place] [address], [place] [phone] [facility] 001 * ECG EXTERNAL RESULTS (01/02/2025) Only the most recent of3 resultswithin the time period is included. Narrative 01/02/2025 Ordered by an unspecified provider. Provider External ECG ORDERABLES Final Resul t * XR EXTERNAL RESULTS (01/01/2025) Narrative 01/01/2025 Ordered by an unspecified provider. Provider External RIS [facility] XR PROCEDURES Final Result * Microalbumin/creatinine ratio, urine (07/28/2022 11:27 AM PDT) Creatinine, Urine 100.3 Not Estab. mg/dL 07/29/2022 7:09 AM PDT [facility] Urine Microalbumin 28.0 Not Estab. ug/mL 07/29/2022 7:09 AM PDT [facility] Microalbumin/Crea tinine, ratio 28 0 - 29 mg/g creat 07/29/2022 7:09 AM PDT [facility] Comment: Normal: 0 - 29 Moderately increased: 30 - 300 Severely increased: >300 Urine Urine specimen obtained by clean catch procedure / Unknown Non-blood Collection / Unknown 07/28/2022 11:27 AM PDT 07/28/2022 5:55 PM PDT Narrative [facility] - 07/29/2022 7:09 AM PDT Performed at: - [address] [id number] Audio/Video Engineer: Partha Hart MD, Phone: [phone] Scooby Yost MD LAB URINE ORDERABLES Final Resul t [address] [address], * (ABNORMAL) Hemoglobin A1c (07/28/2022 11:27 AM PDT) Hemoglobin A1c 6.6(H) 4.8 - 5.6 % 07/29/2022 5:12 AM PDT [facility] Comment: Prediabetes: 5.7 - 6.4 Diabetes: >6.4 Glycemic control for adults with diabetes: <7.0 EAG 143 mg/dL 07/29/2022 5:12 AM PDT [facility] Blood Venous blood / Unknown Venipuncture / Unknown 07/28/2022 11:27 AM PDT 07/28/2022 11:27 AM PDT Narrative [facility] - 07/29/2022 5:12 AM PDT Performed at: 01 - [facility] [address], [place], [place] [id number] Audio/Video Engineer: Partha Hart MD, Phone: [phone] us Scooby Yost MD LAB BLOOD ORDERABLES Final Resul t [facility] [address] [place] [address], [place] [phone] from Last 3 Months or Most Recently Relevant to Health Maintenance Insurance [place] [address] [place] [address] [facility] AARP MEDICARE COMPLETE PPO Advance Directives * Full Code (Latest Code Status on File) Date Activated Date Inactivated Comments 02/26/2020 11:24 PM 02/28/2020 5:26 PM Care Teams Motor Man Relationship Specialty Start Date End Date Rex Anders MD [address] [place] [id number] PCP - General Family Medicine 03/08/25
--- OUTSIDE RECORDS SUMMARY | 2025-03-08 15:30 | XMS_ITS | Encounter Summary ---
Author Organization [facility] Address [address] [place] [address] Care Team Providers Care Supervisor Kennel Name Role Phone Rex Anders MD Primary Care Provider [phone] Encounter Details Date Type Department Care Team (Late st Contact Info) Description 11/04/2022 Abstract [facility] [address] [address] [place] [address] [place] [address] Social History Tobacco Use Types Packs/Day Years [...] Description 09/05/2025 11:00 AM PDT Office Visit [facility] Cardiology [address], [place] [phone] Mahogany Barrett MD [address] [address] [place], [place] [phone] documented as of this encounter Visit Diagnoses Not on filedocumented in this encounter Care Teams Supervisor Kennel Relationship Specialty Start Date End Date Rex Anders MD [address] [place] [phone] PCP - General Family Medicine 03/08/25 documented as of this encounter
--- OUTSIDE RECORDS SUMMARY | 2025-03-08 15:30 | XMS_ITS | Encounter Summary ---
Author Organization [facility] Address [address] [place] [address] Care Team Providers Care Peoples[employer] Financials Name Role Phone Rex Anders MD Primary Care Provider [phone] Encounter Details Date Type Department Care Team (Late Contact Info) Description 03/03/2022 Abstract [facility] Cardiology [address], [address] [address] Mahogany Barrett MD [address] [place] [phone] Social History Tobacco Use Types Packs/Day Years [...] Description 09/05/2025 11:00 AM PDT Office Visit [facility] Cardiology [address], [facility] [place] [phone] Mahogany Barrett MD [address] [place] [address] [address] [place] [address] documented as of this encounter Visit Diagnoses Not on filedocumented in this encounter Care Teams [employer]ancials Relationship Specialty Start Date End Date Rex Anders MD [facility] [address] [place] [address] PCP - General Family Medicine 03/08/25 documented as of this encounter
--- OUTSIDE RECORDS SUMMARY | 2025-03-08 15:30 | XMS_ITS | Encounter Summary ---
Author Organization [facility] Address [address] [place] [address] Care Team Providers Care Mechanical Drafter Name Role Phone Rex Anders MD Primary Care Provider [phone] Reason for Visit * Reason Comments Med Refill Encounter Details Date Type Department Care Team (Late st Contact Info) Description 07/04/2023 Refill [facility] Cardiology [address], [place] [address] Mahogany Barrett MD [address] [place] [address] [address] [place] [address] Social History Tobacco Use Types Packs/Day Years [...] encounter Miscellaneous Notes * Telephone Encounter - Alecia Clifford MA - 07/06/2023 6:56 AM PDT Requested Prescriptions Pending Prescriptions Disp Refills metoprolol succinate XL (TOPROL-XL) 25 mg 24 hr tablet [Pharmacy Med Name: METOPROLOL SUCCINATE 25MG SA TAB] 90 tablet 3 Sig: TAKE ONE TABLET BY MOUTH EVERY DAY Refill per fax folder. Last OV: 08/19/2022 F/Up: 09/14/2023 Please send to: [facility] documented in this encounter Plan of Treatment Upcoming Encounters Date Type Department Care Team (Late st Contact Info) Description 09/05/2025 11:00 AM PDT Office Visit [facility] Cardiology [address], [place] [address] Mahogany Barrett MD [address] [place] [address] [address] [place] [address] documented as of this encounter Visit Diagnoses Not on filedocumented in this encounter Care Teams Mechanical Drafter Relationship Specialty Start Date End Date Rex Anders MD [address] [place] [address] PCP - General Family Medicine 03/08/25 documented as of this encounter
--- OUTSIDE RECORDS SUMMARY | 2025-03-08 15:30 | XMS_ITS | Encounter Summary ---
Author Organization [facility] Address [address] [place] [address] Care Team Providers Care Sheriff'S Officer Name Role Phone Rex Anders MD Primary Care Provider [phone] Encounter Details Date Type Department Care Team (Late Contact Info) Description 05/06/2021 Abstract [facility] Health Information Management [address] [place] [address] [facility] Getter Operator, Provider, Social History Tobacco Use Types Packs/Day [...] Description 09/05/2025 11:00 AM PDT Office Visit [facility] Cardiology [address], [place] [phone] Mahogany Barrett MD [address] [place] [address] [address] [place] [address] documented as of this encounter Procedures Procedure Name Priority Date/Time Associated Diagnosis Comments HEMOGLOBIN A1C Routine 04/24/2021 documented in this encounter Results * Hemoglobin A1c (04/24/2021) External Hemoglobin A1c 6.5 % Blood Venous blood / Unknown Historical Provider LAB BLOOD ORDERABLES Kaley l Result documented in this encounter Visit Diagnoses Not on filedocumented in this encounter Care Teams Sheriff'S Officer Relationship Specialty Start Date End Date Rex Anders MD [address] [place] [address] PCP - General Family Medicine 03/08/25 documented as of this encounter
--- OUTSIDE RECORDS SUMMARY | 2025-03-08 15:30 | XMS_ITS | Encounter Summary ---
Author Organization [facility] Address [address] [place] [address] Care Team Providers Care Coat Hanger Shaper Machine Operator Name Role Phone Rex Anders MD Primary Care Provider [phone] Encounter Details Date Type Department Care Team (Late Contact Info) Description 02/16/2021 Orders Only [facility] Cardiology [address], [place] [address] Mahogany Barrett MD [address] [place] [address] [address] [place] [address] Hyperlipidemia, unspecified hyperlipidemia type; ASHD (arteriosclerotic heart disease) Social History Tobacco [...] Description 09/05/2025 11:00 AM PDT Office Visit [facility] Cardiology [address], [place] [phone] Mahogany Barrett MD [address] [place], [place] [phone] documented as of this encounter Procedures Procedure Name Priority Date/Time Associated Diagnosis Comments COMPLETE BLOOD COUNT Routine 02/10/2021 ASHD (arteriosclerotic heart disease) LIPID PANEL Routine 02/10/2021 Hyperlipidemia, unspecified hyperlipidemia type BASIC METABOLIC PANEL Routine 02/10/2021 ASHD (arteriosclerotic heart disease) documented in this encounter Results * Basic metabolic panel (02/10/2021) Blood Venous blood / Unknown Mahogany Barrett MD LAB BLOOD ORDERABLES Final R esult Performing Organization Address [facility]/ZIP Co de Phone Number [facility] [address] [address], [place] [phone] * Complete blood count (02/10/2021) Blood Venous blood / Unknown Mahogany Barrett MD LAB BLOOD ORDERABLES Final R esult Performing Organization Address City/[facility]/ZIP Co de Phone Number [facility] [address] [address], [place] [phone] * Lipid panel (02/10/2021) Blood Venous blood / Unknown Mahogany Barrett MD LAB BLOOD ORDERABLES Final R esult Performing Organization Address City/[facility]/ZIP Co de Phone Number [facility] [address] [address], [place] [phone] documented in this encounter Visit Diagnoses Diagnosis Hyperlipidemia, unspecified hyperlipidemia type ASHD (arteriosclerotic heart disease) Coronary atherosclerosis of unspecified type of vessel, [employer] or graft documented in this encounter Care Teams Coat Hanger Shaper Machine Operator Relationship Specialty Start Date End Date Rex Anders MD [address] [place] [address] PCP - General Family Medicine 03/08/25 documented as of this encounter
--- OUTSIDE RECORDS SUMMARY | 2025-03-08 15:30 | XMS_ITS | Encounter Summary ---
Author Organization [facility] Address [address] [place] [address] Care Team Providers Care Control Specialist Name Role Phone Rex Anders MD Primary Care Provider [phone] Encounter Details Date Type Department Care Team (Late Contact Info) Description 08/30/2022 Orders Only [facility] [address], [place] [address] Mahogany Barrett MD [address] [place] [address] [address] [place] [address] ASHD (arteriosclerotic heart disease) Social History Tobacco [...] AM PDT Office Visit [facility] [address], [place] [id number] Mahogany Barrett MD [address] [place] [address] [address] [place] [address] documented as of this encounter Procedures Procedure Name Priority Date/Time Associated Diagnosis Comments BASIC METABOLIC PANEL Routine 08/27/2022 8:20 AM PDT ASHD (arteriosclerotic heart disease) documented in this encounter Results * (ABNORMAL) Basic metabolic panel (08/27/2022 8:20 AM PDT) Glucose 139(H) 70 - 99 mg/dL [facility] 001 BUN 23 8 - 27 mg/dL [facility] 001 Creatinine 1.33(H) 0.76 - 1.27 mg/dL [facility] 001 eGFR (CKD-EPI 2020) 56(L) >59 mL/min/1.7 3 [facility] 001 BUN/Creatinine Ratio 17 10 - 24 [facility] 001 Sodium 138 134 - 144 mmol/L [facility] 001 Potassium 4.9 3.5 - 5.2 mmol/L [facility] 001 Chloride 100 96 - 106 mmol/L [facility] 001 CO2 25 20 - 29 mmol/L [facility] 001 Calcium 9.3 8.6 - 10.2 mg/dL [facility] 001 Blood Venous blood / Unknown 08/27/2022 8:20 AM PDT 08/26/2022 9:00 PM PDT Narrative [facility] - 08/28/2022 4:08 AM PDT Performed at: 01 - [facility] [address], [place], [place] [id number] Engineering Team Supervisor: Partha Hart MD, Phone: [phone] Specimen Comment: A courtesy copy of this report has been sent to [phone] Mahogany Barrett MD LAB BLOOD ORDERABLES Final R esult [facility] [address] [place] [address], [place] [phone] [facility] 001 documented in this encounter Visit Diagnoses Diagnosis ASHD (arteriosclerotic heart disease) Coronary atherosclerosis of unspecified type of vessel, [place] or graft documented in this encounter Care Teams Control Specialist Relationship Specialty Start Date End Date Rex Anders MD [address] [place] [phone] PCP - General Family Medicine 03/08/25 documented as of this encounter
--- OUTSIDE RECORDS SUMMARY | 2025-03-08 15:30 | XMS_ITS | Encounter Summary ---
Author Organization [facility] Address [address] [place] [address] Care Team Providers Care Prescription Clerk Name Role Phone Rex Anders MD Primary Care Provider [phone] Encounter Details Date Type Department Care Team (Late Contact Info) Description 03/05/2025 Orders Only [facility] [address], [address] [place] [phone] Mahogany Barrett MD [address] [place] [phone] ASHD (arteriosclerotic heart disease) Social History Tobacco [...] Description 09/05/2025 11:00 AM PDT Office Visit [facility] [address], [place] [phone] Mahogany Barrett MD [address] [place] [address] [address] [place], [place] [phone] documented as of this encounter Procedures Procedure Name Priority Date/Time Associated Diagnosis Comments COMPLETE BLOOD COUNT Routine 03/04/2025 7:43 AM PST ASHD (arteriosclerotic heart disease) LIPID PANEL Routine 03/04/2025 7:43 AM PST ASHD (arteriosclerotic heart disease) BASIC METABOLIC PANEL Routine 03/04/2025 7:43 AM PST ASHD (arteriosclerotic heart disease) documented in this encounter Results * (ABNORMAL) Complete blood count without diff [...] AM PST 03/03/2025 9:00 PM PST Narrative [facility] - 03/05/2025 1:07 AM PST Performed at: - [facility] [address], [place], [place] [id number] Crm Administrator: Partha Hart MD, Phone: [phone] Mahogany Barrett MD LAB BLOOD ORDERABLES Final R esult Performing Organization Address City/[facility]/ZIP Co de Phone Number [address] [place] [phone], [facility] 001 * (ABNORMAL) Lipid panel (03/04/2025 7:43 AM PST) Cholesterol, Total 130 100 - 199 mg/dL [facility] 001 Triglycerides 150(H) 0 - 149 mg/dL [facility] 001 HDL Cholesterol 43 >39 mg/dL [facility] 001 VLDL Cholesterol 26 5 - 40 mg/dL [facility] 001 LDL Cholesterol 61 0 - 99 mg/dL [facility] 001 Blood Venous blood / Unknown 03/04/2025 7:43 AM PST 03/03/2025 9:00 PM PST Narrative [facility] - 03/05/2025 3:07 AM PST Performed at: 01 - [address], [address], [place], [place] [id number] Crm Administrator: Partha Hart MD, Phone: [phone] Mahogany Barrett MD LAB BLOOD ORDERABLES Final R esult Performing Organization Address [facility]/ZIP Co de Phone Number [address] [phone], [facility] 001 * (ABNORMAL) Basic metabolic panel (03/04/2025 7:43 AM PST) Glucose 149(H) 70 - 99 mg/dL REFERENCE [...] AM PST 03/03/2025 9:00 PM PST Narrative [facility] 03/05/2025 3:07 AM PST Performed at: 01 - [facility] [address], [address], [place], [place] [id number] Crm Administrator: Partha Hart MD, Phone: [phone] Specimen Comment: A courtesy copy of this report has been sent to [phone] Mahogany Barrett MD LAB BLOOD ORDERABLES Final R esult [facility] [address] [place] [address], [facility] 001 documented in this encounter Visit Diagnoses Diagnosis ASHD (arteriosclerotic heart disease) Coronary atherosclerosis of unspecified type of vessel, [place] or graft documented in this encounter Care Teams Prescription Clerk Relationship Specialty Start Date End Date Rex Anders MD [address] [place] [phone] PCP - General Family Medicine 03/08/25 documented as of this encounter
== END ==
LOC: RESP 11:00
PROVIDERS: PCP Family Medicine; Referring Provider Family Medicine; Visit Provider Family Medicine
DX: R06.02 Shortness of breath (principal); Z87.891 Personal history of nicotine dependence; J98.8 Other specified respiratory disorders; R94.2 Abnormal results of pulmonary function studies
CPT/HCPCS: 94060; 94726; 94729